=== PATIENT | male | born 1945 | race Two or more races ===

== ENCOUNTER 2018-07-28 18:50 | Inpatient (IN) | payer MEDICARE ==
[2018-07-28 20:03] LABS: EOSINOPHILE ABSOLUTE 0.4 Th/cmm (0.1-0.4); HEMATOCRIT 31.3 % (41.0-60); HEMOGLOBIN 10.3 gm/dL (12-16); LYMPHOCYTE ABSOLUTE 2.2 Th/cmm (1.5-3.0); MEAN CELL VOLUME 84.6 fl (80-99); MEAN CORPUSCULAR HEMOGLOBIN 27.9 pg (27.0-31.0); MEAN PLATELET VOLUME 6.1 fl; MONOCYTE ABSOLUTE 1.3 Th/cmm (0.3-1.0); NEUTROPHILE ABSOLUTE 4.6 Th/cmm (1.8-8.0); PLATELET COUNT 278 Th/cmm (150-400); WHITE BLOOD COUNT 8.5 Th/cmm (4.8-10.8)
[2018-07-28 20:16] LABS: ALBUMIN 1.7 gm/dL (4.2-5.5); ANION GAP 7.9 (7.0-16.0); BUN - UREA NITROGEN 28 mg/dL (7-25); CALCIUM SERUM 7.7 mg/dL (8.6-10.3); CARBON DIOXIDE 23.4 mEq/L (21.0-31.0); CHLORIDE 111 mEq/L (98-107); CREATININE - SERUM 1.1 mg/dL (0.7-1.3); GLUCOSE 78 mg/dL (70-105); POTASSIUM SERUM 4.3 mEq/L (3.5-5.1); SODIUM SERUM 138 mEq/L (136-145)
[2018-07-28 20:45] LABS: % BASOPHILS 0.4 % (0.0-2.0); % EOSINOPHILS 5.1 % (0.0-5.0); % LYMPHOCYTES 25.9 % (20.0-50.0); % MONOCYTES 14.6 % (2.0-10.0)
--- NOTE | 2018-07-28 21:47 | ED Physician Chart ---
ED Chief Complaint/HPI - Patient Information Date Seen:: 07/28/18 Time Seen:: 19:10 Chief Complaint:: sent for swelling History of Present Illness:: sent today on going problem generalized Allergies:: Allergies Allergy/AdvReac Type Severity Reaction Status Date / Time No Known Allergies Allergy Verified 07/28/18 19:42 Vitals:: Vital Signs - 8 hr 07/28/18 07/28/18 19:06 20:27 Temp 97.4 F 97.9 F HR 64 67 RR 18 18 BP 150/80 155/75 O2 Sat % 97 97 Review:: Nurse's Note Reviewed, EMS run form Reviewed ED Review of Systems - Review of Systems General/Constitutional: No fever Skin: Skin lesions Eyes: No loss of vision ENT: No nasal drainage Neck: No neck pain Cardio Vascular: No chest pain Pulmonary: No SOB, Cough GI: No nausea, No vomiting G/U: No dysuria Musculoskeletal: No bone or joint pain Endocrine: No polyuria Psychiatric: Prior psych history Hematopoietic: No bruising Allergic/Immuno: No urticaria Neurological: No syncope ED Past Medical History - Past Medical History Past Medical History: CHF Social History: No Drug Use Psychiatricy History: Other Medication: Reviewed Family Medical History - Family Member Mother History Unknown: Yes ED Physical Exam - Physical Examination General/Constitutional: Alert, No distress, Non-toxic appearing (coughing slight wheeze) Head: Atraumatic Eyes: Lids, conjuctiva normal Skin: Well hydrated ENMT: External ears, nose nl Neck: Nontender Respiratory: Nl effort/Exclusion (mucoid sounds no acute significant dyspnea), Clear to Auscultation, No Wheeze/Rhonchi/Rales Cardio Vascular: RRR GI: No tenderness/rebounding/guarding : No CVA tenderness Extremities: Full ROM (marked anasarca) Neuro/Psych: Alert/oriented Misc: Normal back ED Labs/Radiology/EKG Results - Lab Results Results: Laboratory Tests 07/28/18 07/28/18 07/28/18 19:50 19:50 19:50 WBC 8.5 RBC 3.70 L Hgb 10.3 L Hct 31.3 L MCV 84.6 MCH 27.9 MCHC Differential 33.0 RDW 15.0 Plt Count 278 MPV 6.1 Add Manual Diff YES Neutrophils % 54.0 Lymphocytes % 25.9 Monocytes % 14.6 H Eosinophils % 5.1 H Basophils % 0.4 Sodium 138 Potassium 4.3 Chloride 111 H Carbon Dioxide 23.4 Anion Gap 7.9 BUN 28 H Creatinine 1.1 Est GFR ( Amer) TNP Est GFR (Non-Af Amer) TNP BUN/Creatinine Ratio 25.5 Glucose 78 Calcium 7.7 L B-Natriuretic Peptide 134.0 H Albumin 1.7 L ED Assessment - Assessment General Assessment: hypoalbunemia severe equivocal chf vs pna ED Septic Shock - <6hrs of presentation: Vital Signs: Vital Signs - 8 hr 07/28/18 07/28/18 19:06 20:27 Temp 97.4 F 97.9 F HR 64 67 RR 18 18 BP 150/80 155/75 O2 Sat % 97 97
[2018-07-28 21:50] LABS: BAND NEUTROPHILE 1 % (0-10); LYMPHOCYTE 24 % (20-50); MONOCYTE 8 % (2-10); NEUTROPHILS 63 % (40-80)
[2018-07-28 21:51] LABS: EOSINOPHIL 4 % (0-5)
[2018-07-29 00:56] VITALS: BP 147/83
[2018-07-29 05:14] LABS: % BASOPHILS 0.3 % (0.0-2.0); % EOSINOPHILS 4.1 % (0.0-5.0); % LYMPHOCYTES 20.2 % (20.0-50.0); % MONOCYTES 12.8 % (2.0-10.0); % NEUTROPHILS 62.6 % (40.0-80.0); EOSINOPHILE ABSOLUTE 0.4 Th/cmm (0.1-0.4); HEMATOCRIT 33.2 % (41.0-60); HEMOGLOBIN 11.3 gm/dL (12-16); LYMPHOCYTE ABSOLUTE 1.9 Th/cmm (1.5-3.0); MEAN CELL VOLUME 84.1 fl (80-99); MEAN CORPUSCULAR HEMOGLOBIN 28.6 pg (27.0-31.0); MEAN PLATELET VOLUME 6.5 fl; MONOCYTE ABSOLUTE 1.2 Th/cmm (0.3-1.0); NEUTROPHILE ABSOLUTE 5.9 Th/cmm (1.8-8.0); PLATELET COUNT 297 Th/cmm (150-400); RED BLOOD COUNT 3.95 Mil/cmm (3.80-5.80); RED CELL DISTRIBUTION WIDTH 14.7 % (11.5-20.0); WHITE BLOOD COUNT 9.4 Th/cmm (4.8-10.8)
[2018-07-29 05:24] LABS: ANION GAP 6.7 (7.0-16.0); BUN - UREA NITROGEN 24 mg/dL (7-25); CALCIUM SERUM 7.9 mg/dL (8.6-10.3); CARBON DIOXIDE 23.7 mEq/L (21.0-31.0); CHLORIDE 113 mEq/L (98-107); CREATININE KINASE 246 U/L (30-223); GLUCOSE 97 mg/dL (70-105); POTASSIUM SERUM 4.4 mEq/L (3.5-5.1); SODIUM SERUM 139 mEq/L (136-145)
[2018-07-29] MEDS: Ferrous Sulfate 325 MG TAB PO SCH (08:22)
[2018-07-29] MEDS: Vitamin B Complex w/Vitamin C Tab PO SCH (08:23)
[2018-07-29] MEDS: Levothyroxine 0.05 Mg Tab PO SCH (08:24)
[2018-07-29] MEDS: Guaifenesin DM 10 ML UDC PO PRN ×2 (08:24→16:50)
--- NOTE | 2018-07-29 09:04 | Diagnostic Imaging Report ---
Portable chest x-ray HISTORY: Shortness of breath The heart size appears somewhat generous. There are bilateral lower lobe interstitial lung changes. Findings may be chronic. Pneumonia cannot be definitely excluded. Clinical correlation is needed. IMPRESSION: 1. Generalized accentuation of the lower interstitial lung markings. The findings may be chronic. Pneumonia is difficult to exclude. Clinical correlation needed. 2. Generous heart size
[2018-07-29] MEDS: Albuterol Nebulizer 2.5mg/3mL HHN PRN ×2 (11:13→20:37)
--- NOTE | 2018-07-29 13:30 | Consultation ---
DATE OF CONSULTATION: 07/29/[address] Orona. HISTORY OF PRESENT ILLNESS: This is a 72-year-old male patient with schizophrenia, has generalized edema with anasarca and hence, Cardiology consult is requested. PAST MEDICAL HISTORY: Congestive heart failure, severe protein-calorie malnutrition, albumin level 1.7, hypertension, schizophrenia, peripheral vascular disease, alcohol dependence, dermatitis. FAMILY HISTORY: Unremarkable. SOCIAL HISTORY: No history of smoking or alcohol abuse. ALLERGIES: No known allergies. PHYSICAL EXAMINATION: VITAL SIGNS: Blood pressure 150/90, pulse 70, respirations 20, temperature 98. HEAD: Normocephalic. No lumps or bumps. EYES: Pupils equal, reactive to light. Fundi show AV nicking, sclerae white, conjunctivae pink. NECK: Carotid 2+. Normal upstroke. JVD 10 cm above sternal angle. Thyroid not palpable. Lymph nodes not palpable. CHEST: Shows increased AP diameter. No kyphosis, scoliosis. LUNGS: Bilateral bronchovesicular breath sounds. HEART: PMI fifth intercostal space with lateral to midclavicular line. S1, S2, S3. Soft S4. ABDOMEN: Soft. EXTREMITIES: No pedal edema. CLINICAL IMPRESSION: 1. Mild congestive heart failure. 2. Diastolic dysfunction, acute. 3. Severe protein-calorie malnutrition. 4. Hypertension. 5. Schizophrenia. 6. Peripheral vascular disease. 7. Alcohol dependence. 8. Dermatitis. PLAN: The patient has low albumin. We will give the patient Lasix, get echocardiogram and monitor the patient. The patient's BNP level is 174. JOB# [id number]
--- NOTE | 2018-07-29 17:54 | History & Physical ---
ADMIT DATE: 07/29/2018 CHIEF COMPLAINT: Generalized anasarca. HISTORY OF PRESENT ILLNESS: This is a 72-year-old male who is a [facility] resident, admitted to the telemetry unit due to 1-day history of generalized anasarca. Upon examination, the patient is in bed. The patient's bilateral lower extremity is noted with redness, tenderness, and warm to touch. The patient complains of pain when bilateral lower calves are touched. No reports of any fevers at the [facility]. PAST MEDICAL HISTORY: CHF, hypertension, dementia, anemia. PAST SURGICAL HISTORY: Unknown. ALLERGIES: No drug allergies. HOME MEDICATIONS: Please see medication list. REVIEW OF SYSTEMS: GENERAL: Denies any fevers and chills. CARDIOVASCULAR: Denies any chest pain. RESPIRATORY: Complains of cough. GASTROINTESTINAL: Denies nausea, vomiting, or abdominal pain. GENITOURINARY: Denies increased frequency or dysuria. NEUROLOGIC: No headaches, seizures or syncope. All systems are reviewed and negative. PHYSICAL EXAMINATION: GENERAL: The patient is well developed, well nourished, no apparent distress. VITAL SIGNS: Temperature 97.1, heart rate 81, blood pressure 136/81, respirations 19, O2 99%. HEENT: Head normocephalic, atraumatic. NECK: Supple. No mass. LUNGS: Clear bilaterally. HEART: Regular rhythm. ABDOMEN: Soft, nontender. EXTREMITIES: Bilateral lower extremity noted with nonpitting edema, warmness and tenderness to touch, associated with pain. LABORATORY DATA: WBC 9.4, H and H 11.3 and 33.2, platelet of 297. Sodium 139, potassium 4.4, chloride 113, BUN 24, creatinine 1.0. BNP of 174. Albumin of 1.7. DIAGNOSTICS: The patient had a chest x-ray done, impression is generalized accentuation of the lower interstitial lung markings. Findings may be chronic, pneumonia is difficult to exclude. Generous heart size. ASSESSMENT: Possible congestive heart failure exacerbation, bilateral lower extremity edema, generalized anasarca, dementia, hypertension, severe protein-calorie malnutrition, anemia, hypocalcemia. PLAN: The patient will be admitted to the telemetry unit. A bilateral lower extremity venous Doppler will be ordered to rule out DVT. DVT prophylaxis as well GI prophylaxis. We will get historic sites supervisor on the case. We will start the patient on IV Zosyn and vancomycin for cellulitis of bilateral lower extremities. Continue with Lasix 40 mg IV push daily. Follow up labs for tomorrow morning. Daily weights. IV Solu-Medrol to be ordered as well as DuoNeb 3 mL q.6h. Supplemental oxygen as needed to keep O2 sat above 90%. We will monitor intake and output and monitor daily Is and Os. We will continue to monitor this patient. JOB# [id number]
[2018-07-29] MEDS: methylPREDNISolone SS 40 mg Vial IVP SCH (18:21)
[2018-07-29] MEDS: Enoxaparin 40 mg/0.4 mL 0.4mL Syr SUBQ SCH (21:27)
[2018-07-29] MEDS: Haloperidol Lactate Oral sol. 2 mg/mL Udc PO SCH (21:33)
[2018-07-30] MEDS: methylPREDNISolone SS 40 mg Vial IVP SCH ×3 (02:12→16:54)
[2018-07-30 05:29] LABS: HEMATOCRIT 33.5 % (41.0-60); HEMOGLOBIN 11.5 gm/dL (12-16); LYMPHOCYTE ABSOLUTE 1.1 Th/cmm (1.5-3.0); MEAN CELL VOLUME 83.8 fl (80-99); MEAN CORPUSCULAR HEMOGLOBIN 28.8 pg (27.0-31.0); MEAN CORPUSCULAR HGB CONC 34.3 pg (28.0-36.0); MEAN PLATELET VOLUME 6.7 fl; MONOCYTE ABSOLUTE 0.1 Th/cmm (0.3-1.0); NEUTROPHILE ABSOLUTE 13.7 Th/cmm (1.8-8.0); PLATELET COUNT 299 Th/cmm (150-400); RED CELL DISTRIBUTION WIDTH 14.7 % (11.5-20.0); WHITE BLOOD COUNT 14.9 Th/cmm (4.8-10.8)
[2018-07-30 05:40] LABS: ANION GAP 11.8 (7.0-16.0); BUN - UREA NITROGEN 25 mg/dL (7-25); CALCIUM SERUM 7.9 mg/dL (8.6-10.3); CARBON DIOXIDE 21.7 mEq/L (21.0-31.0); CHLORIDE 110 mEq/L (98-107); CREATININE - SERUM 1.1 mg/dL (0.7-1.3); GLUCOSE 137 mg/dL (70-105); POTASSIUM SERUM 4.5 mEq/L (3.5-5.1); SODIUM SERUM 139 mEq/L (136-145)
[2018-07-30 06:46] LABS: BAND NEUTROPHILE 1 % (0-10); BASOPHIL 0 % (0-3); EOSINOPHIL 0 % (0-5); LYMPHOCYTE 6 % (20-50); MONOCYTE 1 % (2-10); NEUTROPHILS 92 % (40-80)
[2018-07-30] MEDS: Enoxaparin 40 mg/0.4 mL 0.4mL Syr SUBQ SCH ×2 (09:30→20:23)
[2018-07-30] MEDS: Levothyroxine 0.05 Mg Tab PO SCH (09:30)
[2018-07-30] MEDS: Vitamin B Complex w/Vitamin C Tab PO SCH (09:30)
[2018-07-30] MEDS: Ferrous Sulfate 325 MG TAB PO SCH (09:30)
--- NOTE | 2018-07-30 09:42 | Diagnostic Imaging Report ---
Left lower extremity Doppler venous ultrasound exam HISTORY: Pain/swelling Sonographic sector images were obtained through the deep venous systems of the left leg. Associated Doppler data was obtained. The exam demonstrates patency of the common femoral, superficial femoral, popliteal, and posterior tibial veins. Specifically, no thrombus is seen. There are normal compressibility and augmentation responses. IMPRESSION: Negative exam for deep vein thrombophlebitis.
[2018-07-30] MEDS: Haloperidol Lactate Oral sol. 2 mg/mL Udc PO SCH ×3 (10:59→20:21)
--- NOTE | 2018-07-30 14:26 | General Progress Note ---
Subjective - Review of Systems Service Date: 07/30/18 Subjective: Patient still complained of swelling in the legs or shortness of breath Objective - Results Result Diagrams: 07/30/18 04:20 07/30/18 04:20 Recent Labs: Laboratory Last Values WBC 14.9 Th/cmm (4.8-10.8) H 07/30/18 04:20 RBC 4.00 Mil/cmm (3.80-5.80) 07/30/18 04:20 Hgb 11.5 gm/dL (12-16) L 07/30/18 04:20 Hct 33.5 % (41.0-60) L 07/30/18 04:20 MCV 83.8 fl (80-99) 07/30/18 04:20 MCH 28.8 pg (27.0-31.0) 07/30/18 04:20 MCHC Differential 34.3 pg (28.0-36.0) 07/30/18 04:20 RDW 14.7 % (11.5-20.0) 07/30/18 04:20 Plt Count 299 Th/cmm (150-400) 07/30/18 04:20 MPV 6.7 fl 07/30/18 04:20 Add Manual Diff YES 07/30/18 04:20 Neutrophils % 62.6 % (40.0-80.0) 07/29/18 04:15 Band Neutrophils % 1 % (0-10) 07/30/18 04:20 Lymphocytes % 20.2 % (20.0-50.0) 07/29/18 04:15 Monocytes % 12.8 % (2.0-10.0) H 07/29/18 04:15 Eosinophils % 4.1 % (0.0-5.0) 07/29/18 04:15 Basophils % 0.3 % (0.0-2.0) 07/29/18 04:15 Neutrophils (Manual) 92 % (40-80) H 07/30/18 04:20 Lymphocytes 6 % (20-50) L 07/30/18 04:20 Monocytes 1 % (2-10) L 07/30/18 04:20 Eosinophils 0 % (0-5) 07/30/18 04:20 Basophils 0 % (0-3) 07/30/18 04:20 Sodium 139 mEq/L (136-145) 07/30/18 04:20 Potassium 4.5 mEq/L (3.5-5.1) 07/30/18 04:20 Chloride 110 mEq/L (98-107) H 07/30/18 04:20 Carbon Dioxide 21.7 mEq/L (21.0-31.0) 07/30/18 04:20 Anion Gap 11.8 (7.0-16.0) 07/30/18 04:20 BUN 25 mg/dL (7-25) 07/30/18 04:20 Creatinine 1.1 mg/dL (0.7-1.3) 07/30/18 04:20 Est GFR ( Amer) TNP 07/30/18 04:20 Est GFR (Non-Af Amer) TNP 07/30/18 04:20 BUN/Creatinine Ratio 22.7 07/30/18 04:20 Glucose 137 mg/dL (70-105) H 07/30/18 04:20 Calcium 7.9 mg/dL (8.6-10.3) L 07/30/18 04:20 Creatine Kinase 246 U/L (30-223) H 07/29/18 04:15 CK-MB (CK-2) 11.1 ng/mL (0.6-6.3) H 07/29/18 04:15 Troponin I 0.02 ng/mL (0.01-0.05) 07/29/18 04:15 B-Natriuretic Peptide 331.0 pg/mL (5.0-100.0) H 07/30/18 04:20 Albumin 1.7 gm/dL (4.2-5.5) L 07/28/18 19:50 - Physical Exam Vitals and I&O: Vital Signs Temp 97.7 F 07/30/18 11:48 Pulse 68 07/30/18 11:48 Resp 18 07/30/18 11:48 BP 141/68 07/30/18 11:48 Pulse Ox 92 07/30/18 11:48 Intake & Output 07/29/18 07/30/18 07/30/18 18:59 06:59 18:59 Intake Total 1120 600 Output Total 1950 680 Balance -830 -80 Weight (lbs) 98.43 kg 98.43 kg Intake: Oral 1120 600 Output: Urine 1950 680 Other: # Voids 1 3 # Bowel Movements 0 0 Stool Characteristics Soft Weight Source Bedscale Bedscale Active Medications: Current Medications Acetaminophen (Tylenol) 325 mg PO Q4HR PRN PRN Reason: Pain or Fever >101 Stop: 09/27/18 07:42 Albuterol Sulfate (Albuterol 2.5mg/3ml Neb Ud) 2.5 mg HHN Q4H PRN PRN Reason: Congestion Stop: 09/27/18 07:59 Last Admin: 07/29/18 20:37 Dose: 2.5 mg Amlodipine Besylate (Norvasc) 2.5 mg PO DAILY [facility] Stop: 09/27/18 08:59 Last Admin: 07/30/18 09:30 Dose: 2.5 mg Ascorbic Acid (Vitamin C) 250 mg PO QPM [facility] Stop: 09/27/18 16:59 Last Admin: 07/29/18 16:45 Dose: 250 mg Aspirin (Ecotrin) 81 mg PO QPM [facility] Stop: 09/27/18 16:59 Last Admin: 07/29/18 16:45 Dose: 81 mg Bisacodyl (Dulcolax 10 Mg Supp) 10 mg RC DAILY PRN PRN Reason: Constipation Stop: 09/27/18 07:42 Calcium Carbonate (Tums) 500 mg PO Q4HR PRN PRN Reason: Indigestion Stop: 09/27/18 07:42 Diphenhydramine HCl (Benadryl) 50 mg PO HS PRN PRN Reason: Insomnia Stop: 09/27/18 07:42 Donepezil HCl (Aricept) 5 mg PO QPM [facility] Stop: 09/27/18 16:59 Last Admin: 07/29/18 16:45 Dose: 5 mg Enoxaparin Sodium (Lovenox) 40 mg SUBQ Q12HR [facility] Stop: 09/27/18 20:59 Last Admin: 07/30/18 09:30 Dose: 40 mg Ferrous Sulfate (Iron) 325 mg PO DAILY [facility] Stop: 09/27/18 08:59 Last Admin: 07/30/18 09:30 Dose: 325 mg Folic Acid (Folate) 2 mg PO DAILY [facility] Stop: 09/27/18 08:59 Last Admin: 07/30/18 09:30 Dose: 2 mg Furosemide (Lasix) 40 mg IVP DAILY [facility] Stop: 09/27/18 08:59 Last Admin: 07/30/18 09:30 Dose: 40 mg Guaifenesin/Dextromethorphan (Robitussin Dm) 10 ml PO Q4H PRN PRN Reason: Cough Stop: 09/27/18 07:44 Last Admin: 07/29/18 16:50 Dose: 10 ml Haloperidol Lactate (Haldol) 0.5 mg PO TID [facility] Stop: 09/27/18 08:59 Last Admin: 07/30/18 14:07 Dose: Not Given Levothyroxine Sodium (Synthroid) 0.05 mg PO DAILY [facility] Stop: 09/27/18 08:59 Last Admin: 07/30/18 09:30 Dose: 0.05 mg Lisinopril (Zestril) 20 mg PO DAILY [facility] Stop: 09/27/18 08:59 Last Admin: 07/30/18 09:30 Dose: 20 mg Methylprednisolone Sodium Succinate (Solu-Medrol) 40 mg IVP Q8H [facility] Stop: 09/27/18 17:14 Last Admin: 07/30/18 09:38 Dose: 40 mg Vitamin B Complex/Vit C/Folic Acid (Vitamin B Complex W/Vitamin C) 1 tab PO DAILY [facility] Stop: 09/27/18 08:59 Last Admin: 07/30/18 09:30 Dose: 1 tab General: No acute distress HEENT: Other (normal) Neck: Supple, JVD, +2 carotid pulse wo bruit Cardiovascular: Regular rate, Normal S1, Normal S2, Systolic murmurs Lungs: Clear to auscultation, Normal air movement Abdomen: Bowel sounds, Soft Extremities: Pulses (normal) Neurological: Strength at 5/5 X4 ext, Cranial nerves 3-12 NL, Reflexes 2+ Assessment/Plan - Assessment Assessment: Congestive heart failure diastolic dysfunction and acute Hypertension Schizophrenia Therefore vascular disease Alcohol dependence Dermatitis - Plan Plan: Continue present management repeat BNP level
--- NOTE | 2018-07-30 14:43 | Cardiology ---
07/29/2018 PATIENT OF: Dr. Orona. M-MODE ECHOCARDIOGRAM: Mitral valve, anterior leaflet of mitral valve shows normal excursion, EF velocity. Posterior leaflet of the mitral valve shows normal excursion. Left ventricle posterior wall shows increased thickness, normal excursion. Interventricular septum shows increased thickness, normal excursion, hypertrophy of the left ventricle, ejection fraction 69%. Left atrium normal. Aortic root shows normal dimension, normal excursion of aortic leaflets. CONCLUSION: Hypertrophy of the left ventricle, ejection fraction 69%. 2D ECHO: Long axis view showed normal sized left ventricle with hypertrophy of the left ventricle. Left atrium normal. Aortic root shows normal dimension, normal excursion of aortic leaflets. Short axis view of mitral valve normal. Short axis view of aortic valve normal. Apical four chamber view showed normal sized left ventricle with hypertrophy of the left ventricle. Left atrium normal. Right ventricular cavity, right atrium normal, no pericardial effusion. CONCLUSION: Hypertrophy of the left ventricle, ejection fraction 69%. Doppler study shows mild mitral regurgitation, moderate tricuspid regurgitation, right ventricular systolic pressure 46 mmHg with mild pulmonary hypertension. CONCLUSION: Hypertrophy of the left ventricle, mild mitral regurgitation, moderate tricuspid regurgitation and mild pulmonary hypertension. JOB# [id number]
--- NOTE | 2018-07-30 14:57 | Internal Medicine Prog Note ---
Internal Medicine Subjective - Subjective Service Date: 07/30/18 Patient seen and examined:: with staff, chart reviewed Patient is:: awake, verbal, confused Patient Complaints of:: other (General weakness) Per staff patient has:: no adverse event, no episodes of fall, confused Internal Medicine Objective - Results Result Diagrams: 07/30/18 04:20 07/30/18 04:20 Recent Labs: Laboratory Last Values WBC 14.9 Th/cmm (4.8-10.8) H 07/30/18 04:20 RBC 4.00 Mil/cmm (3.80-5.80) 07/30/18 04:20 Hgb 11.5 gm/dL (12-16) L 07/30/18 04:20 Hct 33.5 % (41.0-60) L 07/30/18 04:20 MCV 83.8 fl (80-99) 07/30/18 04:20 MCH 28.8 pg (27.0-31.0) 07/30/18 04:20 MCHC Differential 34.3 pg (28.0-36.0) 07/30/18 04:20 RDW 14.7 % (11.5-20.0) 07/30/18 04:20 Plt Count 299 Th/cmm (150-400) 07/30/18 04:20 MPV 6.7 fl 07/30/18 04:20 Add Manual Diff YES 07/30/18 04:20 Neutrophils % 62.6 % (40.0-80.0) 07/29/18 04:15 Band Neutrophils % 1 % (0-10) 07/30/18 04:20 Lymphocytes % 20.2 % (20.0-50.0) 07/29/18 04:15 Monocytes % 12.8 % (2.0-10.0) H 07/29/18 04:15 Eosinophils % 4.1 % (0.0-5.0) 07/29/18 04:15 Basophils % 0.3 % (0.0-2.0) 07/29/18 04:15 Neutrophils (Manual) 92 % (40-80) H 07/30/18 04:20 Lymphocytes 6 % (20-50) L 07/30/18 04:20 Monocytes 1 % (2-10) L 07/30/18 04:20 Eosinophils 0 % (0-5) 07/30/18 04:20 Basophils 0 % (0-3) 07/30/18 04:20 Sodium 139 mEq/L (136-145) 07/30/18 04:20 Potassium 4.5 mEq/L (3.5-5.1) 07/30/18 04:20 Chloride 110 mEq/L (98-107) H 07/30/18 04:20 Carbon Dioxide 21.7 mEq/L (21.0-31.0) 07/30/18 04:20 Anion Gap 11.8 (7.0-16.0) 07/30/18 04:20 BUN 25 mg/dL (7-25) 07/30/18 04:20 Creatinine 1.1 mg/dL (0.7-1.3) 07/30/18 04:20 Est GFR ( Amer) TNP 07/30/18 04:20 Est GFR (Non-Af Amer) TNP 07/30/18 04:20 BUN/Creatinine Ratio 22.7 07/30/18 04:20 Glucose 137 mg/dL (70-105) H 07/30/18 04:20 Calcium 7.9 mg/dL (8.6-10.3) L 07/30/18 04:20 Creatine Kinase 246 U/L (30-223) H 07/29/18 04:15 CK-MB (CK-2) 11.1 ng/mL (0.6-6.3) H 07/29/18 04:15 Troponin I 0.02 ng/mL (0.01-0.05) 07/29/18 04:15 B-Natriuretic Peptide 331.0 pg/mL (5.0-100.0) H 07/30/18 04:20 Albumin 1.7 gm/dL (4.2-5.5) L 07/28/18 19:50 - Physical Exam Vitals and I&O: Vital Signs Temp 97.7 F 07/30/18 11:48 Pulse 68 07/30/18 11:48 Resp 18 07/30/18 11:48 BP 141/68 07/30/18 11:48 Pulse Ox 92 07/30/18 11:48 Intake & Output 07/29/18 07/30/18 07/30/18 18:59 06:59 18:59 Intake Total 1120 600 Output Total 1950 680 Balance -830 -80 Weight (lbs) 98.43 kg 98.43 kg Intake: Oral 1120 600 Output: Urine 1950 680 Other: # Voids 1 3 # Bowel Movements 0 0 Stool Characteristics Soft Weight Source Bedscale Bedscale Active Medications: Current Medications Acetaminophen (Tylenol) 325 mg PO Q4HR PRN PRN Reason: Pain or Fever >101 Stop: 09/27/18 07:42 Albuterol Sulfate (Albuterol 2.5mg/3ml Neb Ud) 2.5 mg HHN Q4H PRN PRN Reason: Congestion Stop: 09/27/18 07:59 Last Admin: 07/29/18 20:37 Dose: 2.5 mg Amlodipine Besylate (Norvasc) 2.5 mg PO DAILY [facility] Stop: 09/27/18 08:59 Last Admin: 07/30/18 09:30 Dose: 2.5 mg Ascorbic Acid (Vitamin C) 250 mg PO QPM [facility] Stop: 09/27/18 16:59 Last Admin: 07/29/18 16:45 Dose: 250 mg Aspirin (Ecotrin) 81 mg PO QPM [facility] Stop: 09/27/18 16:59 Last Admin: 07/29/18 16:45 Dose: 81 mg Bisacodyl (Dulcolax 10 Mg Supp) 10 mg RC DAILY PRN PRN Reason: Constipation Stop: 09/27/18 07:42 Calcium Carbonate (Tums) 500 mg PO Q4HR PRN PRN Reason: Indigestion Stop: 09/27/18 07:42 Diphenhydramine HCl (Benadryl) 50 mg PO HS PRN PRN Reason: Insomnia Stop: 09/27/18 07:42 Donepezil HCl (Aricept) 5 mg PO QPM [facility] Stop: 09/27/18 16:59 Last Admin: 07/29/18 16:45 Dose: 5 mg Enoxaparin Sodium (Lovenox) 40 mg SUBQ Q12HR [facility] Stop: 09/27/18 20:59 Last Admin: 07/30/18 09:30 Dose: 40 mg Ferrous Sulfate (Iron) 325 mg PO DAILY [facility] Stop: 09/27/18 08:59 Last Admin: 07/30/18 09:30 Dose: 325 mg Folic Acid (Folate) 2 mg PO DAILY [facility] Stop: 09/27/18 08:59 Last Admin: 07/30/18 09:30 Dose: 2 mg Furosemide (Lasix) 40 mg IVP DAILY [facility] Stop: 09/27/18 08:59 Last Admin: 07/30/18 09:30 Dose: 40 mg Guaifenesin/Dextromethorphan (Robitussin Dm) 10 ml PO Q4H PRN PRN Reason: Cough Stop: 09/27/18 07:44 Last Admin: 07/29/18 16:50 Dose: 10 ml Haloperidol Lactate (Haldol) 0.5 mg PO TID [facility] Stop: 09/27/18 08:59 Last Admin: 07/30/18 14:07 Dose: Not Given Levothyroxine Sodium (Synthroid) 0.05 mg PO DAILY [facility] Stop: 09/27/18 08:59 Last Admin: 07/30/18 09:30 Dose: 0.05 mg Lisinopril (Zestril) 20 mg PO DAILY [facility] Stop: 09/27/18 08:59 Last Admin: 07/30/18 09:30 Dose: 20 mg Methylprednisolone Sodium Succinate (Solu-Medrol) 40 mg IVP Q8H [facility] Stop: 09/27/18 17:14 Last Admin: 07/30/18 09:38 Dose: 40 mg Vitamin B Complex/Vit C/Folic Acid (Vitamin B Complex W/Vitamin C) 1 tab PO DAILY [facility] Stop: 09/27/18 08:59 Last Admin: 07/30/18 09:30 Dose: 1 tab General: weak, demented, edematous HEENT: NC/AT, PERRLA Neck: Supple, No JVD Lungs: CTAB Cardiovascular: Normal S1 Abdomen: soft Extremities: edema, other (Generalized edema) Internal Medicine Assmt/Plan - Assessment Assessment: Hypertension Mild CHF Dementia Anemia Severe Protein Calorie Malnutrition Schizophrenia PVD Dermatitis Past Alcohol Dependence Acute Diastolic dysfunction - Plan Plan: Continue to monitor closely Continue present meds as directed Monitor Intake/Output daily Monitor Os Supplemental Oxygen Cardio Consult Fall precaution Monitor Mental health status Continue present care management Nutritional Asmnt/Malnutr-PDOC - Dietary Evaluation Malnutrition Findings (Please click <Entered> for more info): see orders
[2018-07-30] MEDS ORDERED: Magnesium Hydroxide (MOM) 30 mL UDC PO PRN (16:41)
[2018-07-30] MEDS: Guaifenesin DM 10 ML UDC PO PRN (18:51)
[2018-07-30] MEDS: Albuterol Nebulizer 2.5mg/3mL HHN PRN (23:29)
[2018-07-31] MEDS: Guaifenesin DM 10 ML UDC PO PRN ×3 (00:11→11:52)
[2018-07-31] MEDS: methylPREDNISolone SS 40 mg Vial IVP SCH ×3 (02:00→21:05)
[2018-07-31 06:47] LABS: HEMOGLOBIN 11.8 gm/dL (12-16); MEAN CELL VOLUME 84.9 fl (80-99); MEAN CORPUSCULAR HEMOGLOBIN 28.6 pg (27.0-31.0); MEAN CORPUSCULAR HGB CONC 33.7 pg (28.0-36.0); PLATELET COUNT 345 Th/cmm (150-400); RED BLOOD COUNT 4.12 Mil/cmm (3.80-5.80)
[2018-07-31 07:49] LABS: WHITE BLOOD COUNT 17.8 Th/cmm (4.8-10.8)
[2018-07-31 08:15] LABS: LYMPHOCYTE 11 % (20-50); MONOCYTE 4 % (2-10); NEUTROPHILS 85 % (40-80); PLATELET ESTIMATE ADEQUATE (NORMAL)
[2018-07-31] MEDS: Levothyroxine 0.05 Mg Tab PO SCH (08:21)
[2018-07-31] MEDS: Ferrous Sulfate 325 MG TAB PO SCH (08:21)
[2018-07-31] MEDS: Multivitamin w/ Minerals Tab PO SCH (08:21)
[2018-07-31] MEDS: Vitamin B Complex w/Vitamin C Tab PO SCH (08:21)
[2018-07-31] MEDS: Enoxaparin 40 mg/0.4 mL 0.4mL Syr SUBQ SCH ×2 (08:23→21:04)
[2018-07-31 08:37] LABS: ANION GAP 11.1 (7.0-16.0); BUN - UREA NITROGEN 31 mg/dL (7-25); CARBON DIOXIDE 21.1 mEq/L (21.0-31.0); CHLORIDE 108 mEq/L (98-107); GLUCOSE 138 mg/dL (70-105); POTASSIUM SERUM 4.2 mEq/L (3.5-5.1); SODIUM SERUM 136 mEq/L (136-145)
[2018-07-31] MEDS: Haloperidol Lactate Oral sol. 2 mg/mL Udc PO SCH ×3 (08:41→21:04)
--- NOTE | 2018-07-31 11:53 | General Progress Note ---
Subjective - Review of Systems Service Date: 07/31/18 Subjective: Patient still complained of swelling in the legs or shortness of breath Objective - Results Result Diagrams: 07/31/18 05:04 07/31/18 05:04 Recent Labs: Laboratory Last Values WBC 17.8 Th/cmm (4.8-10.8) H 07/31/18 05:04 RBC 4.12 Mil/cmm (3.80-5.80) 07/31/18 05:04 Hgb 11.8 gm/dL (12-16) L 07/31/18 05:04 Hct 35.0 % (41.0-60) L 07/31/18 05:04 MCV 84.9 fl (80-99) 07/31/18 05:04 MCH 28.6 pg (27.0-31.0) 07/31/18 05:04 MCHC Differential 33.7 pg (28.0-36.0) 07/31/18 05:04 RDW 15.0 % (11.5-20.0) 07/31/18 05:04 Plt Count 345 Th/cmm (150-400) 07/31/18 05:04 MPV 7.0 fl 07/31/18 05:04 Add Manual Diff YES 07/31/18 05:04 Neutrophils % 62.6 % (40.0-80.0) 07/29/18 04:15 Band Neutrophils % 1 % (0-10) 07/30/18 04:20 Lymphocytes % 20.2 % (20.0-50.0) 07/29/18 04:15 Monocytes % 12.8 % (2.0-10.0) H 07/29/18 04:15 Eosinophils % 4.1 % (0.0-5.0) 07/29/18 04:15 Basophils % 0.3 % (0.0-2.0) 07/29/18 04:15 Neutrophils (Manual) 85 % (40-80) H 07/31/18 05:04 Lymphocytes 11 % (20-50) L 07/31/18 05:04 Monocytes 4 % (2-10) 07/31/18 05:04 Eosinophils 0 % (0-5) 07/30/18 04:20 Basophils 0 % (0-3) 07/30/18 04:20 Platelet Estimate ADEQUATE (NORMAL) 07/31/18 05:04 Sodium 136 mEq/L (136-145) 07/31/18 05:04 Potassium 4.2 mEq/L (3.5-5.1) 07/31/18 05:04 Chloride 108 mEq/L (98-107) H 07/31/18 05:04 Carbon Dioxide 21.1 mEq/L (21.0-31.0) 07/31/18 05:04 Anion Gap 11.1 (7.0-16.0) 07/31/18 05:04 BUN 31 mg/dL (7-25) H 07/31/18 05:04 Creatinine 1.0 mg/dL (0.7-1.3) 07/31/18 05:04 Est GFR ( Amer) TNP 07/31/18 05:04 Est GFR (Non-Af Amer) TNP 07/31/18 05:04 BUN/Creatinine Ratio 31.0 07/31/18 05:04 Glucose 138 mg/dL (70-105) H 07/31/18 05:04 Calcium 8.0 mg/dL (8.6-10.3) L 07/31/18 05:04 Creatine Kinase 246 U/L (30-223) H 07/29/18 04:15 CK-MB (CK-2) 11.1 ng/mL (0.6-6.3) H 07/29/18 04:15 Troponin I 0.02 ng/mL (0.01-0.05) 07/29/18 04:15 B-Natriuretic Peptide 304.0 pg/mL (5.0-100.0) H 07/31/18 05:04 Albumin 1.7 gm/dL (4.2-5.5) L 07/28/18 19:50 - Physical Exam Vitals and I&O: Vital Signs Temp 98.2 F 07/31/18 11:14 Pulse 86 07/31/18 11:14 Resp 18 07/31/18 11:14 BP 150/85 07/31/18 11:14 Pulse Ox 95 07/31/18 11:14 Intake & Output 07/30/18 07/31/18 07/31/18 18:59 06:59 18:59 Intake Total 875 720 Output Total 720 700 Balance 155 20 Weight (lbs) 96.57 kg 97.976 kg Intake: Oral 875 720 Output: Urine 720 700 Other: # Voids 1 1 # Bowel Movements 0 1 Stool Characteristics Soft Weight Source Bedscale Bedscale Active Medications: Current Medications Acetaminophen (Tylenol) 325 mg PO Q4HR PRN PRN Reason: Pain or Fever >101 Stop: 09/27/18 07:42 Albuterol Sulfate (Albuterol 2.5mg/3ml Neb Ud) 2.5 mg HHN Q4H PRN PRN Reason: Congestion Stop: 09/27/18 07:59 Last Admin: 07/30/18 23:29 Dose: 2.5 mg Amlodipine Besylate (Norvasc) 2.5 mg PO DAILY [facility] Stop: 09/27/18 08:59 Last Admin: 07/31/18 08:22 Dose: 2.5 mg Ascorbic Acid (Vitamin C) 250 mg PO QPM [facility] Stop: 09/27/18 16:59 Last Admin: 07/30/18 16:55 Dose: 250 mg Aspirin (Ecotrin) 81 mg PO QPM [facility] Stop: 09/27/18 16:59 Last Admin: 07/30/18 16:54 Dose: 81 mg Bisacodyl (Dulcolax 10 Mg Supp) 10 mg RC DAILY PRN PRN Reason: Constipation Stop: 09/27/18 07:42 Calcium Carbonate (Tums) 500 mg PO Q4HR PRN PRN Reason: Indigestion Stop: 09/27/18 07:42 Diphenhydramine HCl (Benadryl) 50 mg PO HS PRN PRN Reason: Insomnia Stop: 09/27/18 07:42 Last Admin: 07/31/18 00:11 Dose: 50 mg Donepezil HCl (Aricept) 5 mg PO QPM [facility] Stop: 09/27/18 16:59 Last Admin: 07/30/18 16:59 Dose: 5 mg Enoxaparin Sodium (Lovenox) 40 mg SUBQ Q12HR [facility] Stop: 09/27/18 20:59 Last Admin: 07/31/18 08:23 Dose: 40 mg Ferrous Sulfate (Iron) 325 mg PO DAILY [facility] Stop: 09/27/18 08:59 Last Admin: 07/31/18 08:21 Dose: 325 mg Folic Acid (Folate) 2 mg PO DAILY [facility] Stop: 09/27/18 08:59 Last Admin: 07/31/18 08:21 Dose: 2 mg Furosemide (Lasix) 40 mg IVP DAILY [facility] Stop: 09/27/18 08:59 Last Admin: 07/31/18 08:22 Dose: 40 mg Guaifenesin/Dextromethorphan (Robitussin Dm) 10 ml PO Q4H PRN PRN Reason: Cough Stop: 09/27/18 07:44 Last Admin: 07/31/18 05:26 Dose: 10 ml Haloperidol Lactate (Haldol) 0.5 mg PO TID [facility] Stop: 09/27/18 08:59 Last Admin: 07/31/18 08:41 Dose: 0.5 mg Levothyroxine Sodium (Synthroid) 0.05 mg PO DAILY [facility] Stop: 09/27/18 08:59 Last Admin: 07/31/18 08:21 Dose: 0.05 mg Lisinopril (Zestril) 20 mg PO DAILY [facility] Stop: 09/27/18 08:59 Last Admin: 07/31/18 08:21 Dose: 20 mg Lorazepam (Ativan) 0.5 mg PO Q6HR PRN; Protocol PRN Reason: Anxiety Stop: 09/28/18 16:40 Magnesium Hydroxide (Milk Of Magnesia) 30 ml PO DAILY PRN PRN Reason: Constipation Stop: 09/28/18 16:40 Memantine (Namenda) 5 mg PO DAILY [facility] Stop: 09/29/18 08:59 Last Admin: 07/31/18 08:21 Dose: 5 mg Methylprednisolone Sodium Succinate (Solu-Medrol) 40 mg IVP Q8H [facility] Stop: 09/27/18 17:14 Last Admin: 07/31/18 08:21 Dose: 40 mg Thiamine HCl (Vitamin B1) 200 mg PO DAILY [facility] Stop: 09/29/18 08:59 Last Admin: 07/31/18 08:22 Dose: 200 mg Vitamin B Complex/Vit C/Folic Acid (Vitamin B Complex W/Vitamin C) 1 tab PO DAILY [facility] Stop: 09/27/18 08:59 Last Admin: 07/31/18 08:21 Dose: 1 tab General: No acute distress HEENT: Other (normal) Neck: Supple, JVD, +2 carotid pulse wo bruit Cardiovascular: Regular rate, Normal S1, Normal S2, Systolic murmurs Lungs: Clear to auscultation, Normal air movement Abdomen: Bowel sounds, Soft Extremities: Pulses (normal) Neurological: Strength at 5/5 X4 ext, Cranial nerves 3-12 NL, Reflexes 2+ Assessment/Plan - Assessment Assessment: Congestive heart failure diastolic dysfunction and acute Hypertension Schizophrenia Therefore vascular disease Alcohol dependence Dermatitis - Plan Plan: Continue present management repeat BNP level Continue Lasix
[2018-07-31] MEDS ORDERED: Levofloxacin 500mg/100mL 500 MG/100 ML BAG IV SCH (13:45)
--- NOTE | 2018-07-31 16:50 | Consultation ---
DATE OF CONSULTATION: Thank you very much, Dr. Orona, for this consultation. HISTORY OF PRESENT ILLNESS: This is a 72-year-old male with history of chronic obstructive pulmonary disease, presents with some shortness of breath, cough, congestion, admitted for treatment and management. The patient has some cough and congestion, but he feels better, still have some phlegm production. He is a smoker, continues to smoke about 5 cigarettes a day. He is a smoker since early age. PAST MEDICAL HISTORY: Possible congestive heart failure as well. REVIEW OF SYSTEMS: GENERAL: Some weakness and fatigue. CARDIOVASCULAR: No chest pain, no palpitation. RESPIRATORY: Shortness of breath, cough, congestion. GASTROINTESTINAL: No nausea, no vomiting. PHYSICAL EXAMINATION: GENERAL: Awake, alert, not in acute distress. VITAL SIGNS: Temperature 98.2, pulse 86, respirations 18, blood pressure 145/71, saturation 94% on room air. HEENT: Atraumatic, normocephalic. Pupils reactive to light and accommodation. Ears, nose and throat normal. NECK: Supple. CHEST: Few scattered wheezing and rhonchi bilaterally. HEART: Regular rate and rhythm. ABDOMEN: Soft. EXTREMITIES: No edema. LABORATORY AND DIAGNOSTIC DATA: WBC 17.8, hemoglobin 9.8, hematocrit 35.0, and platelets is 345. Sodium 137, potassium 4.2, BUN is 31, creatinine 1.0. BNP is 304. Chest x-ray showed some pulmonary congestion, not to rule out infiltrate and prominent pulmonary arteries. IMPRESSION: 1. This is a 72-year-old male with acute respiratory failure. 2. Chronic obstructive pulmonary disease exacerbation. 3. Underlying congestive heart failure. PLAN: 1. Continue Solu-Medrol, we can decrease the dosage. 2. Diuresis. 3. Cardiac evaluation and supportive care. 4. Follow up chest x-ray. 5. I will follow the patient with you. Thank you very much for this consultation. JOB# [id number]
--- NOTE | 2018-07-31 19:21 | Internal Medicine Prog Note ---
Internal Medicine Subjective - Subjective Service Date: 07/31/18 Patient is:: awake, verbal, confused Patient Complaints of:: other (General weakness) Per staff patient has:: no adverse event, no episodes of fall, confused Internal Medicine Objective - Results Result Diagrams: 07/31/18 05:04 07/31/18 05:04 Recent Labs: Laboratory Last Values WBC 17.8 Th/cmm (4.8-10.8) H 07/31/18 05:04 RBC 4.12 Mil/cmm (3.80-5.80) 07/31/18 05:04 Hgb 11.8 gm/dL (12-16) L 07/31/18 05:04 Hct 35.0 % (41.0-60) L 07/31/18 05:04 MCV 84.9 fl (80-99) 07/31/18 05:04 MCH 28.6 pg (27.0-31.0) 07/31/18 05:04 MCHC Differential 33.7 pg (28.0-36.0) 07/31/18 05:04 RDW 15.0 % (11.5-20.0) 07/31/18 05:04 Plt Count 345 Th/cmm (150-400) 07/31/18 05:04 MPV 7.0 fl 07/31/18 05:04 Add Manual Diff YES 07/31/18 05:04 Neutrophils % 62.6 % (40.0-80.0) 07/29/18 04:15 Band Neutrophils % 1 % (0-10) 07/30/18 04:20 Lymphocytes % 20.2 % (20.0-50.0) 07/29/18 04:15 Monocytes % 12.8 % (2.0-10.0) H 07/29/18 04:15 Eosinophils % 4.1 % (0.0-5.0) 07/29/18 04:15 Basophils % 0.3 % (0.0-2.0) 07/29/18 04:15 Neutrophils (Manual) 85 % (40-80) H 07/31/18 05:04 Lymphocytes 11 % (20-50) L 07/31/18 05:04 Monocytes 4 % (2-10) 07/31/18 05:04 Eosinophils 0 % (0-5) 07/30/18 04:20 Basophils 0 % (0-3) 07/30/18 04:20 Platelet Estimate ADEQUATE (NORMAL) 07/31/18 05:04 Sodium 136 mEq/L (136-145) 07/31/18 05:04 Potassium 4.2 mEq/L (3.5-5.1) 07/31/18 05:04 Chloride 108 mEq/L (98-107) H 07/31/18 05:04 Carbon Dioxide 21.1 mEq/L (21.0-31.0) 07/31/18 05:04 Anion Gap 11.1 (7.0-16.0) 07/31/18 05:04 BUN 31 mg/dL (7-25) H 07/31/18 05:04 Creatinine 1.0 mg/dL (0.7-1.3) 07/31/18 05:04 Est GFR ( Amer) TNP 07/31/18 05:04 Est GFR (Non-Af Amer) TNP 07/31/18 05:04 BUN/Creatinine Ratio 31.0 07/31/18 05:04 Glucose 138 mg/dL (70-105) H 07/31/18 05:04 Calcium 8.0 mg/dL (8.6-10.3) L 07/31/18 05:04 Creatine Kinase 246 U/L (30-223) H 07/29/18 04:15 CK-MB (CK-2) 11.1 ng/mL (0.6-6.3) H 07/29/18 04:15 Troponin I 0.02 ng/mL (0.01-0.05) 07/29/18 04:15 B-Natriuretic Peptide 304.0 pg/mL (5.0-100.0) H 07/31/18 05:04 Albumin 1.7 gm/dL (4.2-5.5) L 07/28/18 19:50 - Physical Exam Vitals and I&O: Vital Signs Temp 97.4 F 07/31/18 15:15 Pulse 62 07/31/18 15:15 Resp 18 07/31/18 16:00 BP 145/71 07/31/18 15:15 Pulse Ox 94 07/31/18 15:15 Intake & Output 02/21/19 02/21/19 02/22/19 06:59 18:59 06:59 Intake Total 720 480 Output Total 700 Balance 20 480 Weight (lbs) 216 lb 219 lb 6.4 oz Intake: Oral 720 480 Output: Urine 700 Other: # Voids 1 1,125 # Bowel Movements 1 1 Weight Source Bedscale Bedscale Active Medications: Current Medications Acetaminophen (Tylenol) 325 mg PO Q4HR PRN PRN Reason: Pain or Fever >101 Stop: 09/27/18 07:42 Albuterol Sulfate (Albuterol 2.5mg/3ml Neb Ud) 2.5 mg HHN Q4H PRN PRN Reason: Congestion Stop: 09/27/18 07:59 Last Admin: 07/30/18 23:29 Dose: 2.5 mg Amlodipine Besylate (Norvasc) 2.5 mg PO DAILY [facility] Stop: 09/27/18 08:59 Last Admin: 07/31/18 08:22 Dose: 2.5 mg Ascorbic Acid (Vitamin C) 250 mg PO QPM [facility] Stop: 09/27/18 16:59 Last Admin: 07/31/18 17:12 Dose: 250 mg Aspirin (Ecotrin) 81 mg PO QPM [facility] Stop: 09/27/18 16:59 Last Admin: 07/31/18 17:12 Dose: 81 mg Bisacodyl (Dulcolax 10 Mg Supp) 10 mg RC DAILY PRN PRN Reason: Constipation Stop: 09/27/18 07:42 Calcium Carbonate (Tums) 500 mg PO Q4HR PRN PRN Reason: Indigestion Stop: 09/27/18 07:42 Diphenhydramine HCl (Benadryl) 50 mg PO HS PRN PRN Reason: Insomnia Stop: 09/27/18 07:42 Last Admin: 07/31/18 00:11 Dose: 50 mg Donepezil HCl (Aricept) 5 mg PO QPM [facility] Stop: 09/27/18 16:59 Last Admin: 07/31/18 17:12 Dose: 5 mg Enoxaparin Sodium (Lovenox) 40 mg SUBQ Q12HR [facility] Stop: 09/27/18 20:59 Last Admin: 07/31/18 08:23 Dose: 40 mg Ferrous Sulfate (Iron) 325 mg PO DAILY [facility] Stop: 09/27/18 08:59 Last Admin: 07/31/18 08:21 Dose: 325 mg Folic Acid (Folate) 2 mg PO DAILY [facility] Stop: 09/27/18 08:59 Last Admin: 07/31/18 08:21 Dose: 2 mg Furosemide (Lasix) 40 mg IVP DAILY [facility] Stop: 09/27/18 08:59 Last Admin: 07/31/18 08:22 Dose: 40 mg Guaifenesin/Dextromethorphan (Robitussin Dm) 10 ml PO Q4H PRN PRN Reason: Cough Stop: 09/27/18 07:44 Last Admin: 07/31/18 11:52 Dose: 10 ml Haloperidol Lactate (Haldol) 0.5 mg PO TID [facility] Stop: 09/27/18 08:59 Last Admin: 07/31/18 14:21 Dose: 0.5 mg Levofloxacin (Levaquin Pb) 500 mg in 100 mls @ 100 mls/hr IV Q24HR [facility] Stop: 09/29/18 13:44 Last Admin: 07/31/18 14:51 Dose: 100 mls/hr Levothyroxine Sodium (Synthroid) 0.05 mg PO DAILY [facility] Stop: 09/27/18 08:59 Last Admin: 07/31/18 08:21 Dose: 0.05 mg Lisinopril (Zestril) 20 mg PO DAILY [facility] Stop: 09/27/18 08:59 Last Admin: 07/31/18 08:21 Dose: 20 mg Lorazepam (Ativan) 0.5 mg PO Q6HR PRN; Protocol PRN Reason: Anxiety Stop: 09/28/18 16:40 Magnesium Hydroxide (Milk Of Magnesia) 30 ml PO DAILY PRN PRN Reason: Constipation Stop: 09/28/18 16:40 Memantine (Namenda) 5 mg PO DAILY [facility] Stop: 09/29/18 08:59 Last Admin: 07/31/18 08:21 Dose: 5 mg Methylprednisolone Sodium Succinate (Solu-Medrol) 20 mg IVP Q12HR [facility] Stop: 09/29/18 20:59 Thiamine HCl (Vitamin B1) 200 mg PO DAILY [facility] Stop: 09/29/18 08:59 Last Admin: 07/31/18 08:22 Dose: 200 mg Vitamin B Complex/Vit C/Folic Acid (Vitamin B Complex W/Vitamin C) 1 tab PO DAILY [facility] Stop: 09/27/18 08:59 Last Admin: 02/21/19 08:21 Dose: 1 tab General: weak, demented, edematous HEENT: NC/AT, PERRLA Neck: Supple, No JVD Lungs: CTAB Cardiovascular: Normal S1 Abdomen: soft Extremities: edema, other (Generalized edema) Internal Medicine Assmt/Plan - Assessment Assessment: Hypertension Mild CHF Dementia Anemia Severe Protein Calorie Malnutrition Schizophrenia PVD Dermatitis Past Alcohol Dependence Acute Diastolic dysfunction - Plan Plan: monitor i+o closely daily weights continue ivabx am labs
--- NOTE | 2018-08-01 00:09 | Consultation ---
DATE OF CONSULTATION: 07/31/2018 INFECTIOUS DISEASE CONSULTATION REFERRING PHYSICIAN: Dr. Orona. REASON FOR CONSULTATION: Leukocytosis. HISTORY OF PRESENT ILLNESS: The patient is a 72-year-old male with a past medical history of CHF, hypertension, dementia, anemia, may have COPD, presented to ER for generalized swelling and anasarca. Both lower extremities were red and tender and warm to touch. The patient denies any fever or chills. On initial evaluation, the patient's temperature was 97.4 degree Fahrenheit and WBC count was 8500. Lasix was started, Solu-Medrol was started. Today, the patient's WBC count went up to 17,800. ID consult was called for the antibiotic management. PAST MEDICAL HISTORY: CHF, hypertension, dementia, anemia. PAST SURGICAL HISTORY: Unknown. ALLERGIES: NKDA. MEDICATIONS: As per medication reconciliation sheet. Antibiotic waite, the patient is started on Levaquin today. REVIEW OF SYSTEMS: GENERAL: The patient denies any fever or chills. HEENT: No diplopia, no photophobia, no sore throat. RESPIRATORY: The patient has no complaints of cough and mild shortness of breath. CARDIOVASCULAR: No chest pain or palpitation. GASTROINTESTINAL: No nausea, no vomiting, no diarrhea, no constipation. GENITOURINARY: No dysuria. NEUROLOGIC: No headache, no dizziness, no focal weakness. PHYSICAL EXAMINATION: CURRENT VITAL SIGNS: Shows temperature is 97.4 degrees Fahrenheit, pulse 62, respiration 18, blood pressure 145/71, oxygen saturation 94%. GENERAL: The patient is comfortable, lying in the bed, not in acute distress. HEENT: Head is normocephalic, atraumatic. Oral cavity moist. Enders tongue. NECK: Supple, no JVD, no carotid bruit. Trachea in midline. CHEST: Bilateral breath sounds. No crackles, mild wheezing present. HEART: S1, S2 within normal limits. Regular rhythm. No murmur, no gallop. ABDOMEN: Soft, nontender, nondistended. Bowel sounds present. EXTREMITIES: No cyanosis. No clubbing. Bilateral pitting edema present. NEUROLOGICAL: Alert, awake, oriented x 3. No focal deficit. LABORATORY DATA: Current lab shows WBC count is 17,800, hemoglobin 11.8, hematocrit 35.0, platelets are 345,000, neutrophil is 85%, lymphocyte 11%. Sodium 136, potassium 4.2, chloride 108, bicarbonate is 21, BUN is 31, creatinine 1, glucose is 138. BNP 304. ____ MRSA screen is negative. Chest x-ray shows generalized accentuation, lower interstitial lung markings, may be chronic, pneumonia difficult to exclude. Doppler ultrasound of the lower extremities is negative. IMPRESSION: 1. Pneumonia. 2. Leukocytosis, most likely due to steroids. 3. Congestive heart failure. 4. Chronic obstructive pulmonary disease exacerbation. 5. Chronic lung disease, may have interstitial lung disease. 6. Hypertension. 7. Dementia. 8. Anemia of chronic disease. RECOMMENDATIONS AND PLAN: We will cut down the steroids to 20 mg IV q. 12 hours. Continue levofloxacin. Check CBC, BMP in the morning. CMP in the morning. Continue Lasix. Thank you, Dr. Orona for involving me in taking care of this patient. [facility]# [id number]
[2018-08-01] MEDS: Guaifenesin DM 10 ML UDC PO PRN ×3 (00:45→09:56)
[2018-08-01 06:43] LABS: HEMATOCRIT 38.2 % (41.0-60); HEMOGLOBIN 12.8 gm/dL (12-16); MEAN CELL VOLUME 84.8 fl (80-99); MEAN CORPUSCULAR HEMOGLOBIN 28.3 pg (27.0-31.0); MEAN CORPUSCULAR HGB CONC 33.3 pg (28.0-36.0); MEAN PLATELET VOLUME 6.5 fl; PLATELET COUNT 390 Th/cmm (150-400); RED BLOOD COUNT 4.51 Mil/cmm (3.80-5.80); RED CELL DISTRIBUTION WIDTH 15.1 % (11.5-20.0)
[2018-08-01 06:47] LABS: ALB/GLOB RATIO 0.7 (1.0-1.8); ALBUMIN 2.1 gm/dL (4.2-5.5); ALKALINE PHOSPHATASE 121 U/L (34-104); ANION GAP 11.5 (7.0-16.0); BILIRUBIN,TOTAL 0.2 mg/dL (0.3-1.0); BUN - UREA NITROGEN 32 mg/dL (7-25); CALCIUM SERUM 8.5 mg/dL (8.6-10.3); CARBON DIOXIDE 20.4 mEq/L (21.0-31.0); CHLORIDE 106 mEq/L (98-107); GLUCOSE 149 mg/dL (70-105); POTASSIUM SERUM 3.9 mEq/L (3.5-5.1); SGOT 22 U/L (13-39); SGPT/ALT 24 U/L (7-52); SODIUM SERUM 134 mEq/L (136-145); TOTAL PROTEIN,SERUM 5.3 gm/dL (6.0-8.3)
[2018-08-01 07:10] LABS: BAND NEUTROPHILE 0 % (0-10); BASOPHIL 0 % (0-3); EOSINOPHIL 0 % (0-5); LYMPHOCYTE 4 % (20-50); MONOCYTE 6 % (2-10); NEUTROPHILS 90 % (40-80)
[2018-08-01] MEDS: Haloperidol Lactate Oral sol. 2 mg/mL Udc PO SCH ×3 (09:22→20:53)
[2018-08-01] MEDS: Enoxaparin 40 mg/0.4 mL 0.4mL Syr SUBQ SCH ×2 (09:22→20:53)
[2018-08-01] MEDS: Multivitamin w/ Minerals Tab PO SCH (09:23)
[2018-08-01] MEDS: Vitamin B Complex w/Vitamin C Tab PO SCH (09:23)
[2018-08-01] MEDS: Levothyroxine 0.05 Mg Tab PO SCH (09:24)
[2018-08-01] MEDS: Ferrous Sulfate 325 MG TAB PO SCH (09:24)
[2018-08-01] MEDS: Albuterol Nebulizer 2.5mg/3mL HHN PRN (09:50)
[2018-08-01] MEDS: methylPREDNISolone SS 40 mg Vial IVP SCH (10:05)
--- NOTE | 2018-08-01 12:36 | Diagnostic Imaging Report ---
Portable chest x-ray HISTORY: Shortness of breath The heart size appears somewhat generous. Atherosclerotic calcination seen in the aorta. There is accentuation of the lower interstitial lung markings. There is question of somewhat more focal density in the medial aspect of the left lower lobe with partial obscuration the left hemidiaphragm. Pneumonia cannot be definitely excluded. Clinical correlation and follow-up recommended. IMPRESSION: 1. Somewhat more focal density in the left lower lobe since the exam of July 28, 2018. Pneumonia cannot be excluded. Clinical correlation and follow-up recommended.
[2018-08-01] MEDS ORDERED: Probiotic Screen MC PRN (14:09)
--- NOTE | 2018-08-01 14:13 | Infectious Disease Prog Note ---
Infectious Disease Subjective - Review of Systems Service Date: 08/01/18 Subjective: Patient has developed fever of 101.5 F, and WBC count went up to 23,000. Infectious Disease Objective - Results Result Diagrams: 08/01/18 05:50 08/01/18 05:50 Recent Labs: Laboratory Last Values WBC 23.0 Th/cmm (4.8-10.8) H* 08/01/18 05:50 RBC 4.51 Mil/cmm (3.80-5.80) 08/01/18 05:50 Hgb 12.8 gm/dL (12-16) 08/01/18 05:50 Hct 38.2 % (41.0-60) L 08/01/18 05:50 MCV 84.8 fl (80-99) 08/01/18 05:50 MCH 28.3 pg (27.0-31.0) 08/01/18 05:50 MCHC Differential 33.3 pg (28.0-36.0) 08/01/18 05:50 RDW 15.1 % (11.5-20.0) 08/01/18 05:50 Plt Count 390 Th/cmm (150-400) 08/01/18 05:50 MPV 6.5 fl 08/01/18 05:50 Add Manual Diff YES 08/01/18 05:50 Neutrophils % 62.6 % (40.0-80.0) 07/29/18 04:15 Band Neutrophils % 0 % (0-10) 08/01/18 05:50 Lymphocytes % 20.2 % (20.0-50.0) 07/29/18 04:15 Monocytes % 12.8 % (2.0-10.0) H 07/29/18 04:15 Eosinophils % 4.1 % (0.0-5.0) 07/29/18 04:15 Basophils % 0.3 % (0.0-2.0) 07/29/18 04:15 Neutrophils (Manual) 90 % (40-80) H 08/01/18 05:50 Lymphocytes 4 % (20-50) L 08/01/18 05:50 Monocytes 6 % (2-10) 08/01/18 05:50 Eosinophils 0 % (0-5) 08/01/18 05:50 Basophils 0 % (0-3) 08/01/18 05:50 Platelet Estimate ADEQUATE (NORMAL) 07/31/18 05:04 Sodium 134 mEq/L (136-145) L 08/01/18 05:50 Potassium 3.9 mEq/L (3.5-5.1) 08/01/18 05:50 Chloride 106 mEq/L (98-107) 08/01/18 05:50 Carbon Dioxide 20.4 mEq/L (21.0-31.0) L 08/01/18 05:50 Anion Gap 11.5 (7.0-16.0) 08/01/18 05:50 BUN 32 mg/dL (7-25) H 08/01/18 05:50 Creatinine 1.0 mg/dL (0.7-1.3) 08/01/18 05:50 Est GFR ( Amer) TNP 08/01/18 05:50 Est GFR (Non-Af Amer) TNP 08/01/18 05:50 BUN/Creatinine Ratio 32.0 08/01/18 05:50 Glucose 149 mg/dL (70-105) H 08/01/18 05:50 Calcium 8.5 mg/dL (8.6-10.3) L 08/01/18 05:50 Total Bilirubin 0.2 mg/dL (0.3-1.0) L 08/01/18 05:50 AST 22 U/L (13-39) 08/01/18 05:50 ALT 24 U/L (7-52) 08/01/18 05:50 Alkaline Phosphatase 121 U/L (34-104) H 08/01/18 05:50 Creatine Kinase 246 U/L (30-223) H 07/29/18 04:15 CK-MB (CK-2) 11.1 ng/mL (0.6-6.3) H 07/29/18 04:15 Troponin I 0.02 ng/mL (0.01-0.05) 07/29/18 04:15 B-Natriuretic Peptide 304.0 pg/mL (5.0-100.0) H 07/31/18 05:04 Total Protein 5.3 gm/dL (6.0-8.3) L 08/01/18 05:50 Albumin 2.1 gm/dL (4.2-5.5) L 08/01/18 05:50 Globulin 3.2 gm/dL 08/01/18 05:50 Albumin/Globulin Ratio 0.7 (1.0-1.8) L 08/01/18 05:50 - Physical Exam Vitals and I&O: Vital Signs Temp 101.5 F 08/01/18 12:43 Pulse 108 08/01/18 12:43 Resp 18 08/01/18 12:43 BP 151/94 08/01/18 12:43 Pulse Ox 98 08/01/18 12:43 Intake & Output 07/31/18 08/01/18 08/01/18 18:59 06:59 18:59 Intake Total 480 Balance 480 Weight (lbs) 99.518 kg 99.337 kg Intake: Oral 480 Other: # Voids 1,125 # Bowel Movements 1 Weight Source Bedscale Bedscale Active Medications: Current Medications Acetaminophen (Tylenol) 325 mg PO Q4HR PRN PRN Reason: Pain or Fever >101 Stop: 09/27/18 07:42 Last Admin: 08/01/18 11:15 Dose: 325 mg Albuterol Sulfate (Albuterol 2.5mg/3ml Neb Ud) 2.5 mg HHN Q4H PRN PRN Reason: Congestion Stop: 09/27/18 07:59 Last Admin: 08/01/18 09:50 Dose: 2.5 mg Amlodipine Besylate (Norvasc) 2.5 mg PO DAILY [facility] Stop: 09/27/18 08:59 Last Admin: 08/01/18 09:23 Dose: 2.5 mg Ascorbic Acid (Vitamin C) 250 mg PO QPM [facility] Stop: 09/27/18 16:59 Last Admin: 07/31/18 17:12 Dose: 250 mg Aspirin (Ecotrin) 81 mg PO QPM [facility] Stop: 09/27/18 16:59 Last Admin: 07/31/18 17:12 Dose: 81 mg Bisacodyl (Dulcolax 10 Mg Supp) 10 mg RC DAILY PRN PRN Reason: Constipation Stop: 09/27/18 07:42 Calcium Carbonate (Tums) 500 mg PO Q4HR PRN PRN Reason: Indigestion Stop: 09/27/18 07:42 Diphenhydramine HCl (Benadryl) 50 mg PO HS PRN PRN Reason: Insomnia Stop: 09/27/18 07:42 Last Admin: 08/01/18 02:23 Dose: 50 mg Donepezil HCl (Aricept) 5 mg PO QPM [facility] Stop: 09/27/18 16:59 Last Admin: 07/31/18 17:12 Dose: 5 mg Enoxaparin Sodium (Lovenox) 40 mg SUBQ Q12HR [facility] Stop: 09/27/18 20:59 Last Admin: 08/01/18 09:22 Dose: 40 mg Ferrous Sulfate (Iron) 325 mg PO DAILY [facility] Stop: 09/27/18 08:59 Last Admin: 08/01/18 09:24 Dose: 325 mg Folic Acid (Folate) 2 mg PO DAILY [facility] Stop: 09/27/18 08:59 Last Admin: 08/01/18 09:24 Dose: 2 mg Furosemide (Lasix) 40 mg IVP DAILY [facility] Stop: 09/27/18 08:59 Last Admin: 08/01/18 09:22 Dose: 40 mg Guaifenesin/Dextromethorphan (Robitussin Dm) 10 ml PO Q4H PRN PRN Reason: Cough Stop: 09/27/18 07:44 Last Admin: 08/01/18 09:56 Dose: 10 ml Haloperidol Lactate (Haldol) 0.5 mg PO TID [facility] Stop: 09/27/18 08:59 Last Admin: 08/01/18 09:22 Dose: 0.5 mg Levofloxacin (Levaquin Pb) 500 mg in 100 mls @ 100 mls/hr IV Q24HR [facility] Stop: 09/29/18 13:44 Last Admin: 07/31/18 14:51 Dose: 100 mls/hr Levothyroxine Sodium (Synthroid) 0.05 mg PO DAILY [facility] Stop: 09/27/18 08:59 Last Admin: 08/01/18 09:24 Dose: 0.05 mg Lisinopril (Zestril) 20 mg PO DAILY [facility] Stop: 09/27/18 08:59 Last Admin: 08/01/18 09:24 Dose: 20 mg Lorazepam (Ativan) 0.5 mg PO Q6HR PRN; Protocol PRN Reason: Anxiety Stop: 09/28/18 16:40 Last Admin: 08/01/18 00:45 Dose: 0.5 mg Lorazepam (Ativan) 1 mg IVP Q4HR PRN; Protocol PRN Reason: Agitation Stop: 09/30/18 04:30 Last Admin: 08/01/18 05:06 Dose: 1 mg Magnesium Hydroxide (Milk Of Magnesia) 30 ml PO DAILY PRN PRN Reason: Constipation Stop: 09/28/18 16:40 Memantine (Namenda) 5 mg PO DAILY [facility] Stop: 09/29/18 08:59 Last Admin: 08/01/18 09:24 Dose: 5 mg Methylprednisolone Sodium Succinate (Solu-Medrol) 20 mg IVP Q12HR [facility] Stop: 09/29/18 20:59 Last Admin: 08/01/18 10:05 Dose: 20 mg Miscellaneous (Probiotic Screen) 1 ea [facility] PRN PRN PRN Reason: PROTOCOL Stop: 09/30/18 14:08 Thiamine HCl (Vitamin B1) 200 mg PO DAILY [facility] Stop: 09/29/18 08:59 Last Admin: 08/01/18 09:23 Dose: 200 mg Vitamin B Complex/Vit C/Folic Acid (Vitamin B Complex W/Vitamin C) 1 tab PO DAILY [facility] Stop: 09/27/18 08:59 Last Admin: 08/01/18 09:23 Dose: 1 tab General: no acute distress, well developed, well nourished HEENT: atraumatic, normocephalic, PERRLA, EOMI Neck: supple, no thyromegaly Cardiovascular: S1S2, regular Lungs: clear to percussion, wheeze, rhonchi Abdomen: soft, no tender, no distended, no mass, no hepatomegaly, no splenomegaly Extremities: no cyanosis, no clubbing, no edema Neurological: awake, alert, oriented, CN 2-12 intact Skin: intact Infectious Disease Assmt/Plan - Assessment Assessment: 1. Sepsis. 2. Pneumonia. 3. COPD. 4. CHF. 5. HTN. 6. Dementia. 7. Anemia of cd. - Plan Plan: Change antibiotics to vanco IV and Zosyn. CT a/p. Sepsis w/u.
--- NOTE | 2018-08-01 14:55 | Diagnostic Imaging Report ---
CT abdomen and pelvis without intravenous contrast Indication: Sepsis Comparison: None, Technique: Axial images were obtained from the lung bases to the bilateral proximal femurs without IV contrast. Coronal reconstructions were made. total DLP: [id number] , CTDI14 FINDINGS: Bilateral small to moderate effusions are seen with bibasal infiltrates and consolidative changes. Exam is limited due to lack of IV and oral contrast. No evidence of focal hepatic or splenic lesions. Assessment of pancreas and adrenal glands is limited on this exam. No hydronephrosis or nephrolithiasis. There is marked distention of the urinary bladder with mild urinary bladder wall thickening anteriorly. Nonspecific gas and fluid-filled loops of bowel are noted. Small amount of fluid is seen within the pelvis. Mild haziness of the mesenteric fat planes also noted. The appendix is not visualized. Moderate atherosclerosis is noted. There is severe anasarca. Degenerative changes spine are noted mild scoliosis. 5 mm sclerotic density, likely bone island seen at L5. IMPRESSION: Limited exam due to lack of IV and oral contrast Distended urinary bladder with mild bilateral thickening anteriorly. Inflammatory or infiltrative process cannot be excluded. Nonspecific gas-filled loops of bowel with moderate stool noted. The appendix is not visualized Severe anasarca. Small amount of free fluid is also noted in the abdomen and pelvis and mild haziness of the mesenteric and pelvic fat planes, probably related to patient's edema. Bilateral [id number] effusions and bibasal infiltrates. Mild atherosclerosis.
--- NOTE | 2018-08-01 15:32 | General Progress Note ---
Subjective - Review of Systems Service Date: 08/01/18 Subjective: Patient still complained of swelling in the legs or shortness of breath Objective - Results Result Diagrams: 08/01/18 05:50 08/01/18 05:50 Recent Labs: Laboratory Last Values WBC 23.0 Th/cmm (4.8-10.8) H* 08/01/18 05:50 RBC 4.51 Mil/cmm (3.80-5.80) 08/01/18 05:50 Hgb 12.8 gm/dL (12-16) 08/01/18 05:50 Hct 38.2 % (41.0-60) L 08/01/18 05:50 MCV 84.8 fl (80-99) 08/01/18 05:50 MCH 28.3 pg (27.0-31.0) 08/01/18 05:50 MCHC Differential 33.3 pg (28.0-36.0) 08/01/18 05:50 RDW 15.1 % (11.5-20.0) 08/01/18 05:50 Plt Count 390 Th/cmm (150-400) 08/01/18 05:50 MPV 6.5 fl 08/01/18 05:50 Add Manual Diff YES 08/01/18 05:50 Neutrophils % 62.6 % (40.0-80.0) 07/29/18 04:15 Band Neutrophils % 0 % (0-10) 08/01/18 05:50 Lymphocytes % 20.2 % (20.0-50.0) 07/29/18 04:15 Monocytes % 12.8 % (2.0-10.0) H 07/29/18 04:15 Eosinophils % 4.1 % (0.0-5.0) 07/29/18 04:15 Basophils % 0.3 % (0.0-2.0) 07/29/18 04:15 Neutrophils (Manual) 90 % (40-80) H 08/01/18 05:50 Lymphocytes 4 % (20-50) L 08/01/18 05:50 Monocytes 6 % (2-10) 08/01/18 05:50 Eosinophils 0 % (0-5) 08/01/18 05:50 Basophils 0 % (0-3) 08/01/18 05:50 Platelet Estimate ADEQUATE (NORMAL) 07/31/18 05:04 Sodium 134 mEq/L (136-145) L 08/01/18 05:50 Potassium 3.9 mEq/L (3.5-5.1) 08/01/18 05:50 Chloride 106 mEq/L (98-107) 08/01/18 05:50 Carbon Dioxide 20.4 mEq/L (21.0-31.0) L 08/01/18 05:50 Anion Gap 11.5 (7.0-16.0) 08/01/18 05:50 BUN 32 mg/dL (7-25) H 08/01/18 05:50 Creatinine 1.0 mg/dL (0.7-1.3) 08/01/18 05:50 Est GFR ( Amer) TNP 08/01/18 05:50 Est GFR (Non-Af Amer) TNP 08/01/18 05:50 BUN/Creatinine Ratio 32.0 08/01/18 05:50 Glucose 149 mg/dL (70-105) H 08/01/18 05:50 Whole Bld Lactic Acid 1.95 mmol/L (0.60-1.99) 08/01/18 14:30 Calcium 8.5 mg/dL (8.6-10.3) L 08/01/18 05:50 Total Bilirubin 0.2 mg/dL (0.3-1.0) L 08/01/18 05:50 AST 22 U/L (13-39) 08/01/18 05:50 ALT 24 U/L (7-52) 08/01/18 05:50 Alkaline Phosphatase 121 U/L (34-104) H 08/01/18 05:50 Creatine Kinase 246 U/L (30-223) H 07/29/18 04:15 CK-MB (CK-2) 11.1 ng/mL (0.6-6.3) H 07/29/18 04:15 Troponin I 0.02 ng/mL (0.01-0.05) 07/29/18 04:15 B-Natriuretic Peptide 304.0 pg/mL (5.0-100.0) H 07/31/18 05:04 Total Protein 5.3 gm/dL (6.0-8.3) L 08/01/18 05:50 Albumin 2.1 gm/dL (4.2-5.5) L 08/01/18 05:50 Globulin 3.2 gm/dL 08/01/18 05:50 Albumin/Globulin Ratio 0.7 (1.0-1.8) L 08/01/18 05:50 - Physical Exam Vitals and I&O: Vital Signs Temp 101.5 F 08/01/18 12:43 Pulse 108 08/01/18 12:43 Resp 18 08/01/18 12:43 BP 151/94 08/01/18 12:43 Pulse Ox 98 08/01/18 12:43 Intake & Output 07/31/18 08/01/18 08/01/18 18:59 06:59 18:59 Intake Total 480 Balance 480 Weight (lbs) 99.518 kg 99.337 kg Intake: Oral 480 Other: # Voids 1,125 # Bowel Movements 1 Weight Source Bedscale Bedscale Active Medications: Current Medications Acetaminophen (Tylenol) 325 mg PO Q4HR PRN PRN Reason: Pain or Fever >101 Stop: 09/27/18 07:42 Last Admin: 08/01/18 11:15 Dose: 325 mg Albuterol Sulfate (Albuterol 2.5mg/3ml Neb Ud) 2.5 mg HHN Q4H PRN PRN Reason: Congestion Stop: 09/27/18 07:59 Last Admin: 08/01/18 09:50 Dose: 2.5 mg Amlodipine Besylate (Norvasc) 2.5 mg PO DAILY [facility] Stop: 09/27/18 08:59 Last Admin: 08/01/18 09:23 Dose: 2.5 mg Ascorbic Acid (Vitamin C) 250 mg PO QPM [facility] Stop: 09/27/18 16:59 Last Admin: 07/31/18 17:12 Dose: 250 mg Aspirin (Ecotrin) 81 mg PO QPM [facility] Stop: 09/27/18 16:59 Last Admin: 07/31/18 17:12 Dose: 81 mg Bisacodyl (Dulcolax 10 Mg Supp) 10 mg RC DAILY PRN PRN Reason: Constipation Stop: 09/27/18 07:42 Calcium Carbonate (Tums) 500 mg PO Q4HR PRN PRN Reason: Indigestion Stop: 09/27/18 07:42 Diphenhydramine HCl (Benadryl) 50 mg PO HS PRN PRN Reason: Insomnia Stop: 09/27/18 07:42 Last Admin: 08/01/18 02:23 Dose: 50 mg Donepezil HCl (Aricept) 5 mg PO QPM [facility] Stop: 09/27/18 16:59 Last Admin: 07/31/18 17:12 Dose: 5 mg Enoxaparin Sodium (Lovenox) 40 mg SUBQ Q12HR [facility] Stop: 09/27/18 20:59 Last Admin: 08/01/18 09:22 Dose: 40 mg Ferrous Sulfate (Iron) 325 mg PO DAILY [facility] Stop: 09/27/18 08:59 Last Admin: 08/01/18 09:24 Dose: 325 mg Folic Acid (Folate) 2 mg PO DAILY [facility] Stop: 09/27/18 08:59 Last Admin: 08/01/18 09:24 Dose: 2 mg Furosemide (Lasix) 40 mg IVP DAILY [facility] Stop: 09/27/18 08:59 Last Admin: 08/01/18 09:22 Dose: 40 mg Guaifenesin/Dextromethorphan (Robitussin Dm) 10 ml PO Q4H PRN PRN Reason: Cough Stop: 09/27/18 07:44 Last Admin: 08/01/18 09:56 Dose: 10 ml Haloperidol Lactate (Haldol) 0.5 mg PO TID [facility] Stop: 09/27/18 08:59 Last Admin: 08/01/18 14:25 Dose: 0.5 mg Piperacillin Sod/Tazobactam (Sod 4.5 gm/ Sodium Chloride) 100 mls @ 100 mls/hr IV Q8HR [facility] Stop: 09/30/18 14:59 Last Admin: 08/01/18 15:17 Dose: 100 mls/hr Vancomycin HCl 2 gm/ Sodium (Chloride) 500 mls @ 250 mls/hr IV ONCE ONE Stop: 08/01/18 17:29 Vancomycin HCl 1.5 gm/ Sodium (Chloride) 500 mls @ 250 mls/hr IV Q12H [facility] Stop: 10/01/18 02:59 Levothyroxine Sodium (Synthroid) 0.05 mg PO DAILY [facility] Stop: 09/27/18 08:59 Last Admin: 08/01/18 09:24 Dose: 0.05 mg Lisinopril (Zestril) 20 mg PO DAILY [facility] Stop: 09/27/18 08:59 Last Admin: 08/01/18 09:24 Dose: 20 mg Lorazepam (Ativan) 0.5 mg PO Q6HR PRN; Protocol PRN Reason: Anxiety Stop: 09/28/18 16:40 Last Admin: 08/01/18 00:45 Dose: 0.5 mg Lorazepam (Ativan) 1 mg IVP Q4HR PRN; Protocol PRN Reason: Agitation Stop: 09/30/18 04:30 Last Admin: 08/01/18 05:06 Dose: 1 mg Magnesium Hydroxide (Milk Of Magnesia) 30 ml PO DAILY PRN PRN Reason: Constipation Stop: 09/28/18 16:40 Memantine (Namenda) 5 mg PO DAILY [facility] Stop: 09/29/18 08:59 Last Admin: 08/01/18 09:24 Dose: 5 mg Methylprednisolone Sodium Succinate (Solu-Medrol) 20 mg IVP Q12HR [facility] Stop: 09/29/18 20:59 Last Admin: 08/01/18 10:05 Dose: 20 mg Miscellaneous (Probiotic Screen) 1 ea PRN PRN PRN Reason: PROTOCOL Stop: 09/30/18 14:08 Miscellaneous (Vancomycin Iv Per Pharmacy) 1 ea PRN [facility] Stop: 09/30/18 14:44 Thiamine HCl (Vitamin B1) 200 mg PO DAILY [facility] Stop: 09/29/18 08:59 Last Admin: 08/01/18 09:23 Dose: 200 mg Vitamin B Complex/Vit C/Folic Acid (Vitamin B Complex W/Vitamin C) 1 tab PO DAILY [facility] Stop: 09/27/18 08:59 Last Admin: 08/01/18 09:23 Dose: 1 tab General: No acute distress HEENT: Other (normal) Neck: Supple, JVD, +2 carotid pulse wo bruit Cardiovascular: Regular rate, Normal S1, Normal S2, Systolic murmurs Lungs: Clear to auscultation, Normal air movement Abdomen: Bowel sounds, Soft Extremities: Pulses (normal) Neurological: Strength at 5/5 X4 ext, Cranial nerves 3-12 NL, Reflexes 2+ Assessment/Plan - Assessment Assessment: Congestive heart failure diastolic dysfunction and acute Hypertension Schizophrenia Therefore vascular disease Alcohol dependence Dermatitis - Plan Plan: Continue present management repeat BNP level Continue Lasix
[2018-08-01 15:38] LABS: URINE SOURCE FOLEY PORT
[2018-08-01 15:40] LABS: URINE BILIRUBIN NEGATIVE (NEGATIVE); URINE BLOOD LARGE (NEGATIVE); URINE GLUCOSE (UA) NEGATIVE (NEGATIVE); URINE KETONE NEGATIVE (NEGATIVE); URINE LEUKOCYTE ESTERASE NEGATIVE (NEGATIVE); URINE MICROSCOPIC INDICATED? YES; URINE NITRATE NEGATIVE (NEGATIVE); URINE PROTEIN >=300 mg/dL (NEGATIVE); URINE UROBILINOGEN 0.2 E.U./dL (0.2 - 1.0)
[2018-08-01 15:48] LABS: URINE CLARITY TURBID (CLEAR); URINE COLOR YELLOW
[2018-08-01 15:51] LABS: URINE BACTERIA MANY /hpf (NONE SEEN); URINE EPITHELIAL CELLS NONE SEEN /lpf (FEW)
[2018-08-02] MEDS ORDERED: Vancomycin HCl 1.5 GM in Sodium Chloride 0.9% 500 ML IV SCH (03:00)
--- NOTE | 2018-08-02 04:37 | Progress Notes ---
DATE: 08/01/2018 SUBJECTIVE: The patient appears to be okay, today in no distress, less congestion. OBJECTIVE: VITAL SIGNS: Has fever of 101.5, pulse 108, respirations 20, blood pressure 151/94, saturation 98%. CHEST: Good breath sounds, few rhonchi. HEART: Regular rate and rhythm. ABDOMEN: Soft. EXTREMITIES: No edema. IMAGING DATA: Chest x-ray showed mild infiltrate right lower lobe area. LABORATORY DATA: WBC is 23.0, hemoglobin 12.8, hematocrit 38.2, platelets 390. Sodium is 130, potassium 3.9, BUN 32, creatinine 1.0. ASSESSMENT: 1. Respiratory failure. 2. Chronic obstructive pulmonary disease. 3. Possible pneumonia. PLAN: 1. IV antibiotics. 2. Nebulizer. 3. Decrease steroids and diuresis and followup labs and chest x-ray. JOB# [id number]
[2018-08-02 06:40] LABS: HEMATOCRIT 34.6 % (41.0-60); HEMOGLOBIN 11.8 gm/dL (12-16); MEAN CELL VOLUME 84.4 fl (80-99); MEAN CORPUSCULAR HEMOGLOBIN 28.8 pg (27.0-31.0); MEAN CORPUSCULAR HGB CONC 34.1 pg (28.0-36.0); MEAN PLATELET VOLUME 6.1 fl; PLATELET COUNT 288 Th/cmm (150-400); RED BLOOD COUNT 4.09 Mil/cmm (3.80-5.80); RED CELL DISTRIBUTION WIDTH 15.2 % (11.5-20.0)
[2018-08-02 06:48] LABS: WHITE BLOOD COUNT 35.5 Th/cmm (4.8-10.8)
[2018-08-02 06:57] LABS: ALB/GLOB RATIO 0.6 (1.0-1.8); ALBUMIN 1.7 gm/dL (4.2-5.5); ALKALINE PHOSPHATASE 108 U/L (34-104); ANION GAP 8.3 (7.0-16.0); BILIRUBIN,TOTAL 0.3 mg/dL (0.3-1.0); BUN - UREA NITROGEN 26 mg/dL (7-25); CALCIUM SERUM 7.6 mg/dL (8.6-10.3); CARBON DIOXIDE 24.6 mEq/L (21.0-31.0); CHLORIDE 107 mEq/L (98-107); GLUCOSE 102 mg/dL (70-105); POTASSIUM SERUM 3.9 mEq/L (3.5-5.1); SGOT 19 U/L (13-39); SGPT/ALT 19 U/L (7-52); SODIUM SERUM 136 mEq/L (136-145); TOTAL PROTEIN,SERUM 4.4 gm/dL (6.0-8.3)
[2018-08-02 07:10] LABS: BAND NEUTROPHILE 2 % (0-10); BASOPHIL 0 % (0-3); EOSINOPHIL 0 % (0-5); LYMPHOCYTE 5 % (20-50); MONOCYTE 4 % (2-10); NEUTROPHILS 89 % (40-80)
[2018-08-02] MEDS: methylPREDNISolone SS 40 mg Vial IVP SCH (08:31)
[2018-08-02] MEDS: Ferrous Sulfate 325 MG TAB PO SCH (08:36)
[2018-08-02] MEDS: Multivitamin w/ Minerals Tab PO SCH (08:37)
[2018-08-02] MEDS: Levothyroxine 0.05 Mg Tab PO SCH (08:37)
[2018-08-02] MEDS: Haloperidol Lactate Oral sol. 2 mg/mL Udc PO SCH ×3 (08:37→21:32)
[2018-08-02] MEDS: Vitamin B Complex w/Vitamin C Tab PO SCH (08:38)
[2018-08-02] MEDS: Enoxaparin 40 mg/0.4 mL 0.4mL Syr SUBQ SCH ×2 (08:38→21:24)
--- NOTE | 2018-08-02 09:46 | Diagnostic Imaging Report ---
CHEST X-RAY: AP view INDICATION: Pneumonia COMPARISON: 08/01/2018 FINDINGS: Developing CHF is seen with bilateral small effusions and bibasal infiltrates. Borderline prominent heart is noted. Multiple old left rib fractures are noted. Gas distended loops of bowel the upper abdomen are noted. IMPRESSION: Developing CHF with small bilateral effusions and bibasal infiltrates.
--- NOTE | 2018-08-02 10:17 | Internal Medicine Prog Note ---
Internal Medicine Subjective - Subjective Patient seen and examined:: chart reviewed Patient is:: awake, verbal, other (less congested) Patient Complaints of:: other (General weakness) Per staff patient has:: no adverse event, no episodes of fall, confused Internal Medicine Objective - Results Result Diagrams: 08/02/18 06:20 08/02/18 06:20 Recent Labs: Laboratory Last Values WBC 35.5 Th/cmm (4.8-10.8) H* D 08/02/18 06:20 RBC 4.09 Mil/cmm (3.80-5.80) 08/02/18 06:20 Hgb 11.8 gm/dL (12-16) L 08/02/18 06:20 Hct 34.6 % (41.0-60) L 08/02/18 06:20 MCV 84.4 fl (80-99) 08/02/18 06:20 MCH 28.8 pg (27.0-31.0) 08/02/18 06:20 MCHC Differential 34.1 pg (28.0-36.0) 08/02/18 06:20 RDW 15.2 % (11.5-20.0) 08/02/18 06:20 Plt Count 288 Th/cmm (150-400) 08/02/18 06:20 MPV 6.1 fl 08/02/18 06:20 Add Manual Diff YES 08/02/18 06:20 Neutrophils % 62.6 % (40.0-80.0) 07/29/18 04:15 Band Neutrophils % 2 % (0-10) 08/02/18 06:20 Lymphocytes % 20.2 % (20.0-50.0) 07/29/18 04:15 Monocytes % 12.8 % (2.0-10.0) H 07/29/18 04:15 Eosinophils % 4.1 % (0.0-5.0) 07/29/18 04:15 Basophils % 0.3 % (0.0-2.0) 07/29/18 04:15 Neutrophils (Manual) 89 % (40-80) H 08/02/18 06:20 Lymphocytes 5 % (20-50) L 08/02/18 06:20 Monocytes 4 % (2-10) 08/02/18 06:20 Eosinophils 0 % (0-5) 08/02/18 06:20 Basophils 0 % (0-3) 08/02/18 06:20 Platelet Estimate ADEQUATE (NORMAL) 07/31/18 05:04 Sodium 136 mEq/L (136-145) 08/02/18 06:20 Potassium 3.9 mEq/L (3.5-5.1) 08/02/18 06:20 Chloride 107 mEq/L (98-107) 08/02/18 06:20 Carbon Dioxide 24.6 mEq/L (21.0-31.0) 08/02/18 06:20 Anion Gap 8.3 (7.0-16.0) 08/02/18 06:20 BUN 26 mg/dL (7-25) H 08/02/18 06:20 Creatinine 1.0 mg/dL (0.7-1.3) 08/02/18 06:20 Est GFR ( Amer) TNP 08/02/18 06:20 Est GFR (Non-Af Amer) TNP 08/02/18 06:20 BUN/Creatinine Ratio 26.0 08/02/18 06:20 Glucose 102 mg/dL (70-105) 08/02/18 06:20 Whole Bld Lactic Acid 1.95 mmol/L (0.60-1.99) 08/01/18 14:30 Calcium 7.6 mg/dL (8.6-10.3) L 08/02/18 06:20 Total Bilirubin 0.3 mg/dL (0.3-1.0) 08/02/18 06:20 AST 19 U/L (13-39) 08/02/18 06:20 ALT 19 U/L (7-52) 08/02/18 06:20 Alkaline Phosphatase 108 U/L (34-104) H 08/02/18 06:20 Creatine Kinase 246 U/L (30-223) H 07/29/18 04:15 CK-MB (CK-2) 11.1 ng/mL (0.6-6.3) H 07/29/18 04:15 Troponin I 0.02 ng/mL (0.01-0.05) 07/29/18 04:15 B-Natriuretic Peptide 304.0 pg/mL (5.0-100.0) H 07/31/18 05:04 Total Protein 4.4 gm/dL (6.0-8.3) L 08/02/18 06:20 Albumin 1.7 gm/dL (4.2-5.5) L 08/02/18 06:20 Globulin 2.7 gm/dL 08/02/18 06:20 Albumin/Globulin Ratio 0.6 (1.0-1.8) L 08/02/18 06:20 Urine Source [place] 08/01/18 15:20 Urine Color YELLOW 08/01/18 15:20 Urine Clarity TURBID (CLEAR) 08/01/18 15:20 Urine pH 6.0 (4.6 - 8.0) 08/01/18 15:20 Ur Specific [place] 1.020 (1.005-1.030) 08/01/18 15:20 Urine Protein >=300 mg/dL (NEGATIVE) 08/01/18 15:20 Urine Glucose (UA) NEGATIVE mg/dL (NEGATIVE) 08/01/18 15:20 Urine Ketones NEGATIVE mg/dL (NEGATIVE) 08/01/18 15:20 Urine Blood LARGE (NEGATIVE) H 08/01/18 15:20 Urine Nitrate NEGATIVE (NEGATIVE) 08/01/18 15:20 Urine Bilirubin NEGATIVE (NEGATIVE) 08/01/18 15:20 Urine Urobilinogen 0.2 E.U./dL (0.2 - 1.0) 08/01/18 15:20 Ur Leukocyte Esterase NEGATIVE (NEGATIVE) 08/01/18 15:20 Urine RBC 2-5 /hpf (0-5) H 08/01/18 15:20 Urine WBC 10-25 /hpf (0-5) H 08/01/18 15:20 Ur Epithelial Cells NONE SEEN /lpf (FEW) 08/01/18 15:20 Urine Bacteria MANY /hpf (NONE SEEN) H 08/01/18 15:20 - Physical Exam Vitals and I&O: Vital Signs Temp 98.4 F 08/01/18 19:40 Pulse 79 08/02/18 08:37 Resp 20 08/02/18 07:33 BP 170/76 08/02/18 08:37 Pulse Ox 95 08/02/18 07:33 Intake & Output 08/01/18 08/02/18 08/02/18 18:59 06:59 18:59 Intake Total 100 560 Output Total 925 Balance 100 -365 Weight (lbs) 94.347 kg Intake: Intake, IV Amount 100 100 Piperacillin Sodium/ 100 100 Tazobact 4.5 gm In Sodium Chloride 0.9% 100 ml @ 100 mls/hr IV Q8HR [facility] Rx #:[id number] Oral 460 Output: Urine 925 Other: Weight Source Bedscale Active Medications: Current Medications Acetaminophen (Tylenol) 325 mg PO Q4HR PRN PRN Reason: Pain or Fever >101 Stop: 09/27/18 07:42 Last Admin: 08/01/18 11:15 Dose: 325 mg Albuterol Sulfate (Albuterol 2.5mg/3ml Neb Ud) 2.5 mg HHN Q4H PRN PRN Reason: Congestion Stop: 09/27/18 07:59 Last Admin: 08/01/18 09:50 Dose: 2.5 mg Amlodipine Besylate (Norvasc) 2.5 mg PO DAILY [facility] Stop: 09/27/18 08:59 Last Admin: 08/02/18 08:36 Dose: 2.5 mg Ascorbic Acid (Vitamin C) 250 mg PO QPM [facility] Stop: 09/27/18 16:59 Last Admin: 08/01/18 16:58 Dose: 250 mg Aspirin (Ecotrin) 81 mg PO QPM [facility] Stop: 09/27/18 16:59 Last Admin: 08/01/18 16:58 Dose: 81 mg Bisacodyl (Dulcolax 10 Mg Supp) 10 mg RC DAILY PRN PRN Reason: Constipation Stop: 09/27/18 07:42 Calcium Carbonate (Tums) 500 mg PO Q4HR PRN PRN Reason: Indigestion Stop: 09/27/18 07:42 Diphenhydramine HCl (Benadryl) 50 mg PO HS PRN PRN Reason: Insomnia Stop: 09/27/18 07:42 Last Admin: 08/01/18 02:23 Dose: 50 mg Donepezil HCl (Aricept) 5 mg PO QPM [facility] Stop: 09/27/18 16:59 Last Admin: 08/01/18 16:58 Dose: 5 mg Enoxaparin Sodium (Lovenox) 40 mg SUBQ Q12HR [facility] Stop: 09/27/18 20:59 Last Admin: 08/02/18 08:38 Dose: 40 mg Ferrous Sulfate (Iron) 325 mg PO DAILY [facility] Stop: 09/27/18 08:59 Last Admin: 08/02/18 08:36 Dose: 325 mg Folic Acid (Folate) 2 mg PO DAILY [facility] Stop: 09/27/18 08:59 Last Admin: 08/02/18 08:36 Dose: 2 mg Furosemide (Lasix) 40 mg IVP DAILY [facility] Stop: 09/27/18 08:59 Last Admin: 08/02/18 08:35 Dose: 40 mg Guaifenesin/Dextromethorphan (Robitussin Dm) 10 ml PO Q4H PRN PRN Reason: Cough Stop: 09/27/18 07:44 Last Admin: 08/01/18 09:56 Dose: 10 ml Haloperidol Lactate (Haldol) 0.5 mg PO TID [facility] Stop: 09/27/18 08:59 Last Admin: 08/02/18 08:37 Dose: Not Given Piperacillin Sod/Tazobactam (Sod 4.5 gm/ Sodium Chloride) 100 mls @ 100 mls/hr IV Q8HR [facility] Stop: 09/30/18 14:59 Last Admin: 08/02/18 05:00 Dose: 100 mls/hr Vancomycin HCl 1.5 gm/ Sodium (Chloride) 500 mls @ 250 mls/hr IV Q12HR@0200, 1400 [facility] Stop: 10/01/18 02:59 Levothyroxine Sodium (Synthroid) 0.05 mg PO DAILY [facility] Stop: 09/27/18 08:59 Last Admin: 08/02/18 08:37 Dose: 0.05 mg Lisinopril (Zestril) 20 mg PO DAILY [facility] Stop: 09/27/18 08:59 Last Admin: 08/02/18 08:37 Dose: 20 mg Lorazepam (Ativan) 0.5 mg PO Q6HR PRN; Protocol PRN Reason: Anxiety Stop: 09/28/18 16:40 Last Admin: 08/01/18 00:45 Dose: 0.5 mg Lorazepam (Ativan) 1 mg IVP Q4HR PRN; Protocol PRN Reason: Agitation Stop: 09/30/18 04:30 Last Admin: 08/01/18 05:06 Dose: 1 mg Magnesium Hydroxide (Milk Of Magnesia) 30 ml PO DAILY PRN PRN Reason: Constipation Stop: 09/28/18 16:40 Memantine (Namenda) 5 mg PO DAILY [facility] Stop: 09/29/18 08:59 Last Admin: 08/02/18 08:36 Dose: 5 mg Methylprednisolone Sodium Succinate (Solu-Medrol) 20 mg IVP DAILY [facility] Stop: 10/01/18 08:59 Last Admin: 08/02/18 08:31 Dose: 20 mg Miscellaneous (Probiotic Screen) 1 ea PRN PRN PRN Reason: PROTOCOL Stop: 09/30/18 14:08 Miscellaneous (Vancomycin Iv Per Pharmacy) 1 [facility] PRN [facility] Stop: 09/30/18 14:44 Thiamine HCl (Vitamin B1) 200 mg PO DAILY [facility] Stop: 09/29/18 08:59 Last Admin: 08/02/18 08:35 Dose: 200 mg Vitamin B Complex/Vit C/Folic Acid (Vitamin B Complex W/Vitamin C) 1 tab PO DAILY [facility] Stop: 09/27/18 08:59 Last Admin: 08/02/18 08:38 Dose: 1 tab General: weak, edematous HEENT: NC/AT, PERRLA Neck: Supple, No JVD Lungs: CTAB Cardiovascular: Normal S1 Abdomen: soft Extremities: edema, other (Generalized edema) Internal Medicine Assmt/Plan - Assessment Assessment: Hypertension Mild CHF Dementia Anemia Severe Protein Calorie Malnutrition Schizophrenia PVD Dermatitis Past Alcohol Dependence Acute Diastolic dysfunction - Plan Plan: Continue to monitor closely Continue present meds as directed Monitor Intake/Output daily Monitor Os Supplemental Oxygen Cardio Consult Fall precaution Monitor Mental health status Continue present care management Nutritional Asmnt/Malnutr-PDOC - Dietary Evaluation Malnutrition Findings (Please click <Entered> for more info): Nutritional Asmnt/Malnutrition Start: 08/01/18 17: 20 Text: Status: Complete Freq: Protocol: Document 08/01/18 17:20 [email or web address] (Rec: 08/01/18 17:27 [email or web address]) Nutritional Asmnt/Malnutrition Patient General Information Nutritional Screening Moderate Risk Diagnosis anasarca Pertinent Medical Hx/Surgical Hx CHF, HTN, dementia, anemia Subjective Information Pt seen sitting up in bed having lunch, able to eat by himself. Per EMR, PO intake 90 -100%. Current Diet Order/ Nutrition Support low sodium, CAMRON, mech soft chinely chopped Pertinent Medications vit C, iron, folate, lasix, synthroid, vancomycin, piperacillin, vit B1, vit B complex with vit C and folic acid Pertinent Labs 08/01 Na 134, BUN 32, Glucose 149, Ca 8.5, Alb 2.1 Nutritional Hx/Data Height 1.8 m Height (Calculated Centimeters) 180.3 Current Weight (lbs) 99.337 kg Weight (Calculated Kilograms) 99.3 Weight (Calculated Grams) 43745.7 [place] Body Weight 172 Body Mass Index (BMI) 30.5 Weight Status Obese GI Symptoms GI Symptoms None Last BM 07/31 Difficult in: None Skin Integrity/Comment: intact, dryness Current %PO Good (75-100%) Estimated Nutritional Goals BEE in Kcals: Adj wt of IBW Calories/Kcals/Kg 23-27 Kcals Calculated [id number] Protein: Adj wt of IBW Protein g/k.8-1 Protein Calculated 66-83 Fluid: ml 1909-2241ml (1ml/kcal) Nutritional Problem No current Nutrition Prob Problem N/A Intervention/Recommendation Comments 1. Continue with low sodium CAMRON, mech soft finely chopped diet as ordered. 2. Monitor PO intake, wt, labs and skin integrity 3. F/U as low risk in 7 days Expected Outcomes/Goals Expected Outcomes/Goals 1. PO intake to meet at least 75% of nutritional needs. 2. Wt stability, skin to remain intact, labs to approach WNL.
[2018-08-02] MEDS: Vancomycin HCl 1.5 GM in Sodium Chloride 0.9% 500 ML IV SCH (14:11)
--- NOTE | 2018-08-02 14:37 | General Progress Note ---
Subjective - Review of Systems Service Date: 08/02/18 Subjective: Patient still complained of swelling in the legs or shortness of breath Blood cultures positive for gram-positive clusters Objective - Results Result Diagrams: 08/02/18 06:20 08/02/18 06:20 Recent Labs: Laboratory Last Values WBC 35.5 Th/cmm (4.8-10.8) H* D 08/02/18 06:20 RBC 4.09 Mil/cmm (3.80-5.80) 08/02/18 06:20 Hgb 11.8 gm/dL (12-16) L 08/02/18 06:20 Hct 34.6 % (41.0-60) L 08/02/18 06:20 MCV 84.4 fl (80-99) 08/02/18 06:20 MCH 28.8 pg (27.0-31.0) 08/02/18 06:20 MCHC Differential 34.1 pg (28.0-36.0) 08/02/18 06:20 RDW 15.2 % (11.5-20.0) 08/02/18 06:20 Plt Count 288 Th/cmm (150-400) 08/02/18 06:20 MPV 6.1 fl 08/02/18 06:20 Add Manual Diff YES 08/02/18 06:20 Neutrophils % 62.6 % (40.0-80.0) 07/29/18 04:15 Band Neutrophils % 2 % (0-10) 08/02/18 06:20 Lymphocytes % 20.2 % (20.0-50.0) 07/29/18 04:15 Monocytes % 12.8 % (2.0-10.0) H 07/29/18 04:15 Eosinophils % 4.1 % (0.0-5.0) 07/29/18 04:15 Basophils % 0.3 % (0.0-2.0) 07/29/18 04:15 Neutrophils (Manual) 89 % (40-80) H 08/02/18 06:20 Lymphocytes 5 % (20-50) L 08/02/18 06:20 Monocytes 4 % (2-10) 08/02/18 06:20 Eosinophils 0 % (0-5) 08/02/18 06:20 Basophils 0 % (0-3) 08/02/18 06:20 Platelet Estimate ADEQUATE (NORMAL) 07/31/18 05:04 Sodium 136 mEq/L (136-145) 08/02/18 06:20 Potassium 3.9 mEq/L (3.5-5.1) 08/02/18 06:20 Chloride 107 mEq/L (98-107) 08/02/18 06:20 Carbon Dioxide 24.6 mEq/L (21.0-31.0) 08/02/18 06:20 Anion Gap 8.3 (7.0-16.0) 08/02/18 06:20 BUN 26 mg/dL (7-25) H 08/02/18 06:20 Creatinine 1.0 mg/dL (0.7-1.3) 08/02/18 06:20 Est GFR ( Amer) TNP 08/02/18 06:20 Est GFR (Non-Af Amer) TNP 08/02/18 06:20 BUN/Creatinine Ratio 26.0 08/02/18 06:20 Glucose 102 mg/dL (70-105) 08/02/18 06:20 Whole Bld Lactic Acid 1.95 mmol/L (0.60-1.99) 08/01/18 14:30 Calcium 7.6 mg/dL (8.6-10.3) L 08/02/18 06:20 Total Bilirubin 0.3 mg/dL (0.3-1.0) 08/02/18 06:20 AST 19 U/L (13-39) 08/02/18 06:20 ALT 19 U/L (7-52) 08/02/18 06:20 Alkaline Phosphatase 108 U/L (34-104) H 08/02/18 06:20 Creatine Kinase 246 U/L (30-223) H 07/29/18 04:15 CK-MB (CK-2) 11.1 ng/mL (0.6-6.3) H 07/29/18 04:15 Troponin I 0.02 ng/mL (0.01-0.05) 07/29/18 04:15 B-Natriuretic Peptide 304.0 pg/mL (5.0-100.0) H 07/31/18 05:04 Total Protein 4.4 gm/dL (6.0-8.3) L 08/02/18 06:20 Albumin 1.7 gm/dL (4.2-5.5) L 08/02/18 06:20 Globulin 2.7 gm/dL 08/02/18 06:20 Albumin/Globulin Ratio 0.6 (1.0-1.8) L 08/02/18 06:20 Urine Source SIMS PORT 08/01/18 15:20 Urine Color YELLOW 08/01/18 15:20 Urine Clarity TURBID (CLEAR) 08/01/18 15:20 Urine pH 6.0 (4.6 - 8.0) 08/01/18 15:20 Ur Specific [place] 1.020 (1.005-1.030) 08/01/18 15:20 Urine Protein >=300 mg/dL (NEGATIVE) 08/01/18 15:20 Urine Glucose (UA) NEGATIVE mg/dL (NEGATIVE) 08/01/18 15:20 Urine Ketones NEGATIVE mg/dL (NEGATIVE) 08/01/18 15:20 Urine Blood LARGE (NEGATIVE) H 08/01/18 15:20 Urine Nitrate NEGATIVE (NEGATIVE) 08/01/18 15:20 Urine Bilirubin NEGATIVE (NEGATIVE) 08/01/18 15:20 Urine Urobilinogen 0.2 E.U./dL (0.2 - 1.0) 08/01/18 15:20 Ur Leukocyte Esterase NEGATIVE (NEGATIVE) 08/01/18 15:20 Urine RBC 2-5 /hpf (0-5) H 08/01/18 15:20 Urine WBC 10-25 /hpf (0-5) H 08/01/18 15:20 Ur Epithelial Cells NONE SEEN /lpf (FEW) 08/01/18 15:20 Urine Bacteria MANY /hpf (NONE SEEN) H 08/01/18 15:20 - Physical Exam Vitals and I&O: Vital Signs Temp 98.2 F 08/02/18 07:00 Pulse 79 08/02/18 08:37 Resp 18 08/02/18 12:00 BP 170/76 08/02/18 08:37 Pulse Ox 95 08/02/18 07:33 Intake & Output 08/01/18 08/02/18 08/02/18 18:59 06:59 18:59 Intake Total 100 660 100 Output Total 925 Balance 100 -265 100 Weight (lbs) 94.347 kg 94.347 kg Intake: Intake, IV Amount 100 200 100 Piperacillin Sodium/ 100 200 100 Tazobact 4.5 gm In Sodium Chloride 0.9% 100 ml @ 100 mls/hr IV Q8HR [facility] Rx #:[id number] Oral 460 Output: Urine 925 Other: Weight Source Bedscale Bedscale Active Medications: Current Medications Acetaminophen (Tylenol) 325 mg PO Q4HR PRN PRN Reason: Pain or Fever >101 Stop: 09/27/18 07:42 Last Admin: 08/01/18 11:15 Dose: 325 mg Albuterol Sulfate (Albuterol 2.5mg/3ml Neb Ud) 2.5 mg HHN Q4H PRN PRN Reason: Congestion Stop: 09/27/18 07:59 Last Admin: 08/01/18 09:50 Dose: 2.5 mg Amlodipine Besylate (Norvasc) 2.5 mg PO DAILY [facility] Stop: 09/27/18 08:59 Last Admin: 08/02/18 08:36 Dose: 2.5 mg Ascorbic Acid (Vitamin C) 250 mg PO QPM [facility] Stop: 09/27/18 16:59 Last Admin: 08/01/18 16:58 Dose: 250 mg Aspirin (Ecotrin) 81 mg PO QPM [facility] Stop: 09/27/18 16:59 Last Admin: 08/01/18 16:58 Dose: 81 mg Bisacodyl (Dulcolax 10 Mg Supp) 10 mg RC DAILY PRN PRN Reason: Constipation Stop: 09/27/18 07:42 Calcium Carbonate (Tums) 500 mg PO Q4HR PRN PRN Reason: Indigestion Stop: 09/27/18 07:42 Diphenhydramine HCl (Benadryl) 50 mg PO HS PRN PRN Reason: Insomnia Stop: 09/27/18 07:42 Last Admin: 08/01/18 02:23 Dose: 50 mg Donepezil HCl (Aricept) 5 mg PO QPM [facility] Stop: 09/27/18 16:59 Last Admin: 08/01/18 16:58 Dose: 5 mg Enoxaparin Sodium (Lovenox) 40 mg SUBQ Q12HR [facility] Stop: 09/27/18 20:59 Last Admin: 08/02/18 08:38 Dose: 40 mg Ferrous Sulfate (Iron) 325 mg PO DAILY [facility] Stop: 09/27/18 08:59 Last Admin: 08/02/18 08:36 Dose: 325 mg Folic Acid (Folate) 2 mg PO DAILY [facility] Stop: 09/27/18 08:59 Last Admin: 08/02/18 08:36 Dose: 2 mg Furosemide (Lasix) 40 mg IVP DAILY [facility] Stop: 09/27/18 08:59 Last Admin: 08/02/18 08:35 Dose: 40 mg Guaifenesin/Dextromethorphan (Robitussin Dm) 10 ml PO Q4H PRN PRN Reason: Cough Stop: 09/27/18 07:44 Last Admin: 08/01/18 09:56 Dose: 10 ml Haloperidol Lactate (Haldol) 0.5 mg PO TID [facility] Stop: 09/27/18 08:59 Last Admin: 08/02/18 14:01 Dose: Not Given Piperacillin Sod/Tazobactam (Sod 4.5 gm/ Sodium Chloride) 100 mls @ 100 mls/hr IV Q8HR [facility] Stop: 09/30/18 14:59 Last Infusion: 08/02/18 13:05 Dose: Infused Vancomycin HCl 1.5 gm/ Sodium (Chloride) 500 mls @ 250 mls/hr IV Q12HR@0200, 1400 [facility] Stop: 10/01/18 02:59 Last Admin: 08/02/18 14:11 Dose: 250 mls/hr Levothyroxine Sodium (Synthroid) 0.05 mg PO DAILY [facility] Stop: 09/27/18 08:59 Last Admin: 08/02/18 08:37 Dose: 0.05 mg Lisinopril (Zestril) 20 mg PO DAILY [facility] Stop: 09/27/18 08:59 Last Admin: 08/02/18 08:37 Dose: 20 mg Lorazepam (Ativan) 0.5 mg PO Q6HR PRN; Protocol PRN Reason: Anxiety Stop: 09/28/18 16:40 Last Admin: 08/01/18 00:45 Dose: 0.5 mg Lorazepam (Ativan) 1 mg IVP Q4HR PRN; Protocol PRN Reason: Agitation Stop: 09/30/18 04:30 Last Admin: 08/01/18 05:06 Dose: 1 mg Magnesium Hydroxide (Milk Of Magnesia) 30 ml PO DAILY PRN PRN Reason: Constipation Stop: 09/28/18 16:40 Memantine (Namenda) 5 mg PO DAILY [facility] Stop: 09/29/18 08:59 Last Admin: 08/02/18 08:36 Dose: 5 mg Methylprednisolone Sodium Succinate (Solu-Medrol) 20 mg IVP DAILY [facility] Stop: 10/01/18 08:59 Last Admin: 08/02/18 08:31 Dose: 20 mg Miscellaneous (Probiotic Screen) 1 [facility] PRN PRN PRN Reason: PROTOCOL Stop: 09/30/18 14:08 Miscellaneous (Vancomycin Iv Per Pharmacy) 1 [facility] PRN [facility] Stop: 09/30/18 14:44 Thiamine HCl (Vitamin B1) 200 mg PO DAILY [facility] Stop: 09/29/18 08:59 Last Admin: 08/02/18 08:35 Dose: 200 mg Vitamin B Complex/Vit C/Folic Acid (Vitamin B Complex W/Vitamin C) 1 tab PO DAILY [facility] Stop: 09/27/18 08:59 Last Admin: 08/02/18 08:38 Dose: 1 tab General: No acute distress HEENT: Other (normal) Neck: Supple, JVD, +2 carotid pulse wo bruit Cardiovascular: Regular rate, Normal S1, Normal S2, Systolic murmurs Lungs: Clear to auscultation, Normal air movement Abdomen: Bowel sounds, Soft Extremities: Pulses (normal) Neurological: Strength at 5/5 X4 ext, Cranial nerves 3-12 NL, Reflexes 2+ Assessment/Plan - Assessment Assessment: Congestive heart failure diastolic dysfunction and acute Hypertension Schizophrenia Therefore vascular disease Alcohol dependence Dermatitis Culture positive" Rule out aspiration pneumonia - Plan Plan: Continue present management repeat BNP level Continue Lasix IV antibiotics Nutritional Asmnt/Malnutr-PDOC - Dietary Evaluation Malnutrition Findings (Please click <Entered> for more info): Nutritional Asmnt/Malnutrition Start: 08/01/18 17: 20 Text: Status: Complete Freq: Protocol: Document 08/01/18 17:20 [email or web address] (Rec: 08/01/18 17:27 [email or web address]) Nutritional Asmnt/Malnutrition Patient General Information Nutritional Screening Moderate Risk Diagnosis anasarca Pertinent Medical Hx/Surgical Hx CHF, HTN, dementia, anemia Subjective Information Pt seen sitting up in bed having lunch, able to eat by himself. Per EMR, PO intake 90 -100%. Current Diet Order/ Nutrition Support low sodium, CAMRON, mech soft chinely chopped Pertinent Medications vit C, iron, folate, lasix, synthroid, vancomycin, piperacillin, vit B1, vit B complex with vit C and folic acid Pertinent Labs 08/01 Na 134, BUN 32, Glucose 149, Ca 8.5, Alb 2.1 Nutritional Hx/Data Height 1.8 m Height (Calculated Centimeters) 180.3 Current Weight (lbs) 99.337 kg Weight (Calculated Kilograms) 99.3 Weight (Calculated Grams) 50468.7 [place] Body Weight 172 Body Mass Index (BMI) 30.5 Weight Status Obese GI Symptoms GI Symptoms None Last BM 07/31 Difficult in: None Skin Integrity/Comment: intact, dryness Current %PO Good (75-100%) Estimated Nutritional Goals BEE in Kcals: Adj wt of IBW Calories/Kcals/Kg 23-27 Kcals Calculated 0342-8105 Protein: Adj wt of IBW Protein g/k.8-1 Protein Calculated 66-83 Fluid: ml 1909-2241ml (1ml/kcal) Nutritional Problem No current Nutrition Prob Problem N/A Intervention/Recommendation Comments 1. Continue with low sodium CAMRON, mech soft finely chopped diet as ordered. 2. Monitor PO intake, wt, labs and skin integrity 3. F/U as low risk in 7 days Expected Outcomes/Goals Expected Outcomes/Goals 1. PO intake to meet at least 75% of nutritional needs. 2. Wt stability, skin to remain intact, labs to approach WNL.
--- NOTE | 2018-08-03 00:31 | Progress Notes ---
DATE: 08/02/2018 PULMONARY PROGRESS NOTE SUBJECTIVE: The patient appears to be doing okay. OBJECTIVE: GENERAL: No distress. VITAL SIGNS: Temperature 98.2, T-max 101.5, pulse 79, respirations 18, blood pressure 170/76, saturation 98%. CHEST: Good breath sounds. No wheezing, no crackles. HEART: Regular rate and rhythm. ABDOMEN: Soft. EXTREMITIES: No edema. IMAGING: Chest x-ray: Bilateral infiltrate, worsening. IMPRESSION: 1. Respiratory failure. 2. Pneumonia. 3. Severe leukocytosis. 4. Dysphagia. 5. Chronic obstructive pulmonary disease. PLAN: 1. Discontinue Solu-Medrol. 2. Continue antibiotics. 3. Nebulizer treatment. 4. Pulmonary toilet. 5. Followup chest x-ray. JOB# [id number]
[2018-08-03] MEDS: Vancomycin HCl 1.5 GM in Sodium Chloride 0.9% 500 ML IV SCH (02:44)
[2018-08-03 08:47] LABS: MEAN PLATELET VOLUME 6.4 fl
[2018-08-03 08:50] LABS: HEMATOCRIT 37.5 % (41.0-60); HEMOGLOBIN 12.7 gm/dL (12-16); MEAN CORPUSCULAR HEMOGLOBIN 28.8 pg (27.0-31.0); MEAN CORPUSCULAR HGB CONC 33.9 pg (28.0-36.0); PLATELET COUNT 267 Th/cmm (150-400); RED BLOOD COUNT 4.41 Mil/cmm (3.80-5.80); RED CELL DISTRIBUTION WIDTH 15.2 % (11.5-20.0)
[2018-08-03 08:54] LABS: WHITE BLOOD COUNT 21.7 Th/cmm (4.8-10.8)
[2018-08-03 08:59] LABS: ALB/GLOB RATIO 0.7 (1.0-1.8); ALBUMIN 1.9 gm/dL (4.2-5.5); ALKALINE PHOSPHATASE 127 U/L (34-104); ANION GAP 9.4 (7.0-16.0); BILIRUBIN,TOTAL 0.3 mg/dL (0.3-1.0); BUN - UREA NITROGEN 23 mg/dL (7-25); CALCIUM SERUM 7.8 mg/dL (8.6-10.3); CARBON DIOXIDE 25.2 mEq/L (21.0-31.0); CHLORIDE 107 mEq/L (98-107); GLUCOSE 106 mg/dL (70-105); POTASSIUM SERUM 3.6 mEq/L (3.5-5.1); SGOT 15 U/L (13-39); SGPT/ALT 18 U/L (7-52); SODIUM SERUM 138 mEq/L (136-145); TOTAL PROTEIN,SERUM 4.8 gm/dL (6.0-8.3)
[2018-08-03] MEDS: Haloperidol Lactate Oral sol. 2 mg/mL Udc PO SCH ×5 (09:02→20:28)
[2018-08-03] MEDS: Ferrous Sulfate 325 MG TAB PO SCH ×2 (09:03→13:03)
[2018-08-03] MEDS: Levothyroxine 0.05 Mg Tab PO SCH ×2 (09:03→13:05)
[2018-08-03] MEDS: Multivitamin w/ Minerals Tab PO SCH ×2 (09:04→13:08)
[2018-08-03] MEDS: Vitamin B Complex w/Vitamin C Tab PO SCH ×2 (09:04→09:30)
[2018-08-03] MEDS: Enoxaparin 40 mg/0.4 mL 0.4mL Syr SUBQ SCH ×2 (09:13→20:29)
[2018-08-03] MEDS: methylPREDNISolone SS 40 mg Vial IVP SCH (09:13)
[2018-08-03 09:33] LABS: BAND NEUTROPHILE 1 % (0-10); EOSINOPHIL 1 % (0-5); LYMPHOCYTE 8 % (20-50); MONOCYTE 2 % (2-10); NEUTROPHILS 88 % (40-80)
[2018-08-03 09:34] LABS: BASOPHIL 0 % (0-3)
--- NOTE | 2018-08-03 09:47 | Diagnostic Imaging Report ---
CHEST X-RAY: AP view INDICATION: Shortness of breath COMPARISON: 08/02/2018 FINDINGS: Congestive changes are seen with small effusions and right basal infiltrates. Heart size is borderline prominent. IMPRESSION: Persistent Congestive changes with small effusions and right basal infiltrates.
--- NOTE | 2018-08-03 11:27 | Internal Medicine Prog Note ---
Internal Medicine Subjective - Subjective Patient seen and examined:: chart reviewed Patient is:: awake, verbal, other (Blood cultures positive for gram-positive clusters, still c/o sob) Patient Complaints of:: SOB Per staff patient has:: no adverse event, no episodes of fall, confused Internal Medicine Objective - Results Result Diagrams: 08/03/18 08:30 08/03/18 08:30 Recent Labs: Laboratory Last Values WBC 21.7 Th/cmm (4.8-10.8) H* D 08/03/18 08:30 RBC 4.41 Mil/cmm (3.80-5.80) 08/03/18 08:30 Hgb 12.7 gm/dL (12-16) 08/03/18 08:30 Hct 37.5 % (41.0-60) L 08/03/18 08:30 MCV 85.0 fl (80-99) 08/03/18 08:30 MCH 28.8 pg (27.0-31.0) 08/03/18 08:30 MCHC Differential 33.9 pg (28.0-36.0) 08/03/18 08:30 RDW 15.2 % (11.5-20.0) 08/03/18 08:30 Plt Count 267 Th/cmm (150-400) 08/03/18 08:30 MPV 6.4 fl 08/03/18 08:30 Add Manual Diff YES 08/03/18 08:30 Neutrophils % 62.6 % (40.0-80.0) 07/29/18 04:15 Band Neutrophils % 1 % (0-10) 08/03/18 08:30 Lymphocytes % 20.2 % (20.0-50.0) 07/29/18 04:15 Monocytes % 12.8 % (2.0-10.0) H 07/29/18 04:15 Eosinophils % 4.1 % (0.0-5.0) 07/29/18 04:15 Basophils % 0.3 % (0.0-2.0) 07/29/18 04:15 Neutrophils (Manual) 88 % (40-80) H 08/03/18 08:30 Lymphocytes 8 % (20-50) L 08/03/18 08:30 Monocytes 2 % (2-10) 08/03/18 08:30 Eosinophils 1 % (0-5) 08/03/18 08:30 Basophils 0 % (0-3) 08/03/18 08:30 Platelet Estimate ADEQUATE (NORMAL) 07/31/18 05:04 Sodium 138 mEq/L (136-145) 08/03/18 08:30 Potassium 3.6 mEq/L (3.5-5.1) 08/03/18 08:30 Chloride 107 mEq/L (98-107) 08/03/18 08:30 Carbon Dioxide 25.2 mEq/L (21.0-31.0) 08/03/18 08:30 Anion Gap 9.4 (7.0-16.0) 08/03/18 08:30 BUN 23 mg/dL (7-25) 08/03/18 08:30 Creatinine 1.0 mg/dL (0.7-1.3) 08/03/18 08:30 Est GFR ( Amer) TNP 08/03/18 08:30 Est GFR (Non-Af Amer) TNP 08/03/18 08:30 BUN/Creatinine Ratio 23.0 08/03/18 08:30 Glucose 106 mg/dL (70-105) H 08/03/18 08:30 Whole Bld Lactic Acid 1.95 mmol/L (0.60-1.99) 08/01/18 14:30 Calcium 7.8 mg/dL (8.6-10.3) L 08/03/18 08:30 Total Bilirubin 0.3 mg/dL (0.3-1.0) 08/03/18 08:30 AST 15 U/L (13-39) 08/03/18 08:30 ALT 18 U/L (7-52) 08/03/18 08:30 Alkaline Phosphatase 127 U/L (34-104) H 08/03/18 08:30 Creatine Kinase 246 U/L (30-223) H 07/29/18 04:15 CK-MB (CK-2) 11.1 ng/mL (0.6-6.3) H 07/29/18 04:15 Troponin I 0.02 ng/mL (0.01-0.05) 07/29/18 04:15 B-Natriuretic Peptide 304.0 pg/mL (5.0-100.0) H 07/31/18 05:04 Total Protein 4.8 gm/dL (6.0-8.3) L 08/03/18 08:30 Albumin 1.9 gm/dL (4.2-5.5) L 08/03/18 08:30 Globulin 2.9 gm/dL 08/03/18 08:30 Albumin/Globulin Ratio 0.7 (1.0-1.8) L 08/03/18 08:30 Urine Source SIMS PORT 08/01/18 15:20 Urine Color YELLOW 08/01/18 15:20 Urine Clarity TURBID (CLEAR) 08/01/18 15:20 Urine pH 6.0 (4.6 - 8.0) 08/01/18 15:20 Ur Specific [place] 1.020 (1.005-1.030) 08/01/18 15:20 Urine Protein >=300 mg/dL (NEGATIVE) 08/01/18 15:20 Urine Glucose (UA) NEGATIVE mg/dL (NEGATIVE) 08/01/18 15:20 Urine Ketones NEGATIVE mg/dL (NEGATIVE) 08/01/18 15:20 Urine Blood LARGE (NEGATIVE) H 08/01/18 15:20 Urine Nitrate NEGATIVE (NEGATIVE) 08/01/18 15:20 Urine Bilirubin NEGATIVE (NEGATIVE) 08/01/18 15:20 Urine Urobilinogen 0.2 E.U./dL (0.2 - 1.0) 08/01/18 15:20 Ur Leukocyte Esterase NEGATIVE (NEGATIVE) 08/01/18 15:20 Urine RBC 2-5 /hpf (0-5) H 08/01/18 15:20 Urine WBC 10-25 /hpf (0-5) H 08/01/18 15:20 Ur Epithelial Cells NONE SEEN /lpf (FEW) 08/01/18 15:20 Urine Bacteria MANY /hpf (NONE SEEN) H 08/01/18 15:20 Vancomycin Trough 20.0 ug/mL (5-10) H 08/03/18 00:53 - Physical Exam Vitals and I&O: Vital Signs Temp 97.7 F 08/03/18 08:00 Pulse 94 08/03/18 08:00 Resp 18 08/03/18 11:00 BP 127/76 08/03/18 09:12 Pulse Ox 92 08/03/18 07:52 Intake & Output 08/02/18 08/03/18 08/03/18 18:59 06:59 18:59 Intake Total 1000 100 Output Total 2100 1550 Balance -1100 100 -1550 Weight (lbs) 94.347 kg 94.347 kg 94.347 kg Intake: Intake, IV Amount 600 100 Piperacillin Sodium/ 100 100 Tazobact 4.5 gm In Sodium Chloride 0.9% 100 ml @ 100 mls/hr IV Q8HR [facility] Rx #:[id number] Vancomycin HCl 1.5 gm In 500 Sodium Chloride 0.9% 500 ml @ 250 mls/hr IV Q12HR@ 0200,1400 [facility] Rx#: [id number] Oral 400 Output: Urine 2100 1550 Stool 0 Other: # Bowel Movements 0 Weight Source Bedscale Bedscale Bedscale Active Medications: Current Medications Acetaminophen (Tylenol) 325 mg PO Q4HR PRN PRN Reason: Pain or Fever >101 Stop: 09/27/18 07:42 Last Admin: 08/01/18 11:15 Dose: 325 mg Albuterol Sulfate (Albuterol 2.5mg/3ml Neb Ud) 2.5 mg HHN Q4H PRN PRN Reason: Congestion Stop: 09/27/18 07:59 Last Admin: 08/01/18 09:50 Dose: 2.5 mg Amlodipine Besylate (Norvasc) 2.5 mg PO DAILY [facility] Stop: 09/27/18 08:59 Last Admin: 08/03/18 09:03 Dose: Not Given Ascorbic Acid (Vitamin C) 250 mg PO QPM [facility] Stop: 09/27/18 16:59 Last Admin: 08/02/18 17:28 Dose: 250 mg Aspirin (Ecotrin) 81 mg PO QPM [facility] Stop: 09/27/18 16:59 Last Admin: 08/02/18 17:28 Dose: 81 mg Bisacodyl (Dulcolax 10 Mg Supp) 10 mg RC DAILY PRN PRN Reason: Constipation Stop: 09/27/18 07:42 Calcium Carbonate (Tums) 500 mg PO Q4HR PRN PRN Reason: Indigestion Stop: 09/27/18 07:42 Diphenhydramine HCl (Benadryl) 50 mg PO HS PRN PRN Reason: Insomnia Stop: 09/27/18 07:42 Last Admin: 08/01/18 02:23 Dose: 50 mg Donepezil HCl (Aricept) 5 mg PO QPM [facility] Stop: 09/27/18 16:59 Last Admin: 08/02/18 17:28 Dose: 5 mg Enoxaparin Sodium (Lovenox) 40 mg SUBQ Q12HR [facility] Stop: 09/27/18 20:59 Last Admin: 08/03/18 09:13 Dose: 40 mg Ferrous Sulfate (Iron) 325 mg PO DAILY [facility] Stop: 09/27/18 08:59 Last Admin: 08/03/18 09:03 Dose: Not Given Folic Acid (Folate) 2 mg PO DAILY [facility] Stop: 09/27/18 08:59 Last Admin: 08/03/18 09:03 Dose: Not Given Furosemide (Lasix) 40 mg IVP DAILY [facility] Stop: 09/27/18 08:59 Last Admin: 08/03/18 09:12 Dose: 40 mg Guaifenesin/Dextromethorphan (Robitussin Dm) 10 ml PO Q4H PRN PRN Reason: Cough Stop: 09/27/18 07:44 Last Admin: 08/01/18 09:56 Dose: 10 ml Haloperidol Lactate (Haldol) 0.5 mg PO TID [facility] Stop: 09/27/18 08:59 Last Admin: 08/03/18 09:02 Dose: Not Given Piperacillin Sod/Tazobactam (Sod 4.5 gm/ Sodium Chloride) 100 mls @ 100 mls/hr IV Q8HR [facility] Stop: 09/30/18 14:59 Last Admin: 08/03/18 05:21 Dose: 100 mls/hr Vancomycin HCl 1 gm/ Sodium (Chloride) 250 mls @ 165 mls/hr IV Q12HR@0200,1400 [facility] Stop: 10/02/18 13:59 Levothyroxine Sodium (Synthroid) 0.05 mg PO DAILY [facility] Stop: 09/27/18 08:59 Last Admin: 08/03/18 09:03 Dose: Not Given Lisinopril (Zestril) 20 mg PO DAILY [facility] Stop: 09/27/18 08:59 Last Admin: 08/03/18 09:04 Dose: Not Given Lorazepam (Ativan) 0.5 mg PO Q6HR PRN; Protocol PRN Reason: Anxiety Stop: 09/28/18 16:40 Last Admin: 08/01/18 00:45 Dose: 0.5 mg Lorazepam (Ativan) 1 mg IVP Q4HR PRN; Protocol PRN Reason: Agitation Stop: 09/30/18 04:30 Last Admin: 08/01/18 05:06 Dose: 1 mg Magnesium Hydroxide (Milk Of Magnesia) 30 ml PO DAILY [facility] PRN Reason: Constipation Stop: 09/28/18 16:40 Memantine (Namenda) 5 mg PO DAILY [facility] Stop: 09/29/18 08:59 Last Admin: 08/03/18 09:04 Dose: Not Given Methylprednisolone Sodium Succinate (Solu-Medrol) 20 mg IVP DAILY [facility] Stop: 10/01/18 08:59 Last Admin: 08/03/18 09:13 Dose: 20 mg Miscellaneous (Probiotic Screen) 1 [facility] PRN PRN PRN Reason: PROTOCOL Stop: 09/30/18 14:08 Miscellaneous (Vancomycin Iv Per Pharmacy) 1 [facility] PRN [facility] Stop: 09/30/18 14:44 Thiamine HCl (Vitamin B1) 200 mg PO DAILY [facility] Stop: 09/29/18 08:59 Last Admin: 08/03/18 09:04 Dose: Not Given Vitamin B Complex/Vit C/Folic Acid (Vitamin B Complex W/Vitamin C) 1 tab PO DAILY [facility] Stop: 09/27/18 08:59 Last Admin: 08/03/18 09:04 Dose: Not Given General: weak, edematous HEENT: NC/AT, PERRLA Neck: Supple, No JVD Lungs: CTAB Cardiovascular: Normal S1 Abdomen: soft Extremities: edema, other (Generalized edema) Internal Medicine Assmt/Plan - Assessment Assessment: Hypertension Mild CHF Dementia Anemia Severe Protein Calorie Malnutrition Schizophrenia PVD Dermatitis Past Alcohol Dependence Acute Diastolic dysfunction - Plan Plan: Continue to monitor closely Continue present meds as directed Monitor Intake/Output daily Monitor Os Supplemental Oxygen Cardio Consult Fall precaution Monitor Mental health status Continue present care management Nutritional Asmnt/Malnutr-PDOC - Dietary Evaluation Malnutrition Findings (Please click <Entered> for more info): Nutritional Asmnt/Malnutrition Start: 08/01/18 17: 20 Text: Status: Complete Freq: Protocol: Document 08/01/18 17:20 LYNN (Rec: 08/01/18 17:27 LYNN [email or web address]) Nutritional Asmnt/Malnutrition Patient General Information Nutritional Screening Moderate Risk Diagnosis anasarca Pertinent Medical Hx/Surgical Hx CHF, HTN, dementia, anemia Subjective Information Pt seen sitting up in bed having lunch, able to eat by himself. Per EMR, PO intake 90 -100%. Current Diet Order/ Nutrition Support low sodium, CAMRON, mech soft chinely chopped Pertinent Medications vit C, iron, folate, lasix, synthroid, vancomycin, piperacillin, vit B1, vit B complex with vit C and folic acid Pertinent Labs 08/01 Na 134, BUN 32, Glucose 149, Ca 8.5, Alb 2.1 Nutritional Hx/Data Height 1.8 m Height (Calculated Centimeters) 180.3 Current Weight (lbs) 99.337 kg Weight (Calculated Kilograms) 99.3 Weight (Calculated Grams) 20105.7 [place] Body Weight 172 Body Mass Index (BMI) 30.5 Weight Status Obese GI Symptoms GI Symptoms None Last BM 07/31 Difficult in: None Skin Integrity/Comment: intact, dryness Current %PO Good (75-100%) Estimated Nutritional Goals BEE in Kcals: Adj wt of IBW Calories/Kcals/Kg 23-27 Kcals Calculated 1247-9042 Protein: Adj wt of IBW Protein g/k.8-1 Protein Calculated 66-83 Fluid: ml 1909-2241ml (1ml/kcal) Nutritional Problem No current Nutrition Prob Problem N/A Intervention/Recommendation Comments 1. Continue with low sodium CAMRON, mech soft finely chopped diet as ordered. 2. Monitor PO intake, wt, labs and skin integrity 3. F/U as low risk in 7 days Expected Outcomes/Goals Expected Outcomes/Goals 1. PO intake to meet at least 75% of nutritional needs. 2. Wt stability, skin to remain intact, labs to approach WNL.
--- NOTE | 2018-08-03 14:54 | General Progress Note ---
Subjective - Review of Systems Service Date: 08/03/18 Subjective: Patient still complained of swelling in the legs or shortness of breath Blood cultures positive for gram-positive clusters Patient passed swallowing Objective - Results Result Diagrams: 08/03/18 08:30 08/03/18 08:30 Recent Labs: Laboratory Last Values WBC 21.7 Th/cmm (4.8-10.8) H* D 08/03/18 08:30 RBC 4.41 Mil/cmm (3.80-5.80) 08/03/18 08:30 Hgb 12.7 gm/dL (12-16) 08/03/18 08:30 Hct 37.5 % (41.0-60) L 08/03/18 08:30 MCV 85.0 fl (80-99) 08/03/18 08:30 MCH 28.8 pg (27.0-31.0) 08/03/18 08:30 MCHC Differential 33.9 pg (28.0-36.0) 08/03/18 08:30 RDW 15.2 % (11.5-20.0) 08/03/18 08:30 Plt Count 267 Th/cmm (150-400) 08/03/18 08:30 MPV 6.4 fl 08/03/18 08:30 Add Manual Diff YES 08/03/18 08:30 Neutrophils % 62.6 % (40.0-80.0) 07/29/18 04:15 Band Neutrophils % 1 % (0-10) 08/03/18 08:30 Lymphocytes % 20.2 % (20.0-50.0) 07/29/18 04:15 Monocytes % 12.8 % (2.0-10.0) H 07/29/18 04:15 Eosinophils % 4.1 % (0.0-5.0) 07/29/18 04:15 Basophils % 0.3 % (0.0-2.0) 07/29/18 04:15 Neutrophils (Manual) 88 % (40-80) H 08/03/18 08:30 Lymphocytes 8 % (20-50) L 08/03/18 08:30 Monocytes 2 % (2-10) 08/03/18 08:30 Eosinophils 1 % (0-5) 08/03/18 08:30 Basophils 0 % (0-3) 08/03/18 08:30 Platelet Estimate ADEQUATE (NORMAL) 07/31/18 05:04 Sodium 138 mEq/L (136-145) 08/03/18 08:30 Potassium 3.6 mEq/L (3.5-5.1) 08/03/18 08:30 Chloride 107 mEq/L (98-107) 08/03/18 08:30 Carbon Dioxide 25.2 mEq/L (21.0-31.0) 08/03/18 08:30 Anion Gap 9.4 (7.0-16.0) 08/03/18 08:30 BUN 23 mg/dL (7-25) 08/03/18 08:30 Creatinine 1.0 mg/dL (0.7-1.3) 08/03/18 08:30 Est GFR ( Amer) TNP 08/03/18 08:30 Est GFR (Non-Af Amer) TNP 08/03/18 08:30 BUN/Creatinine Ratio 23.0 08/03/18 08:30 Glucose 106 mg/dL (70-105) H 08/03/18 08:30 Whole Bld Lactic Acid 1.95 mmol/L (0.60-1.99) 08/01/18 14:30 Calcium 7.8 mg/dL (8.6-10.3) L 08/03/18 08:30 Total Bilirubin 0.3 mg/dL (0.3-1.0) 08/03/18 08:30 AST 15 U/L (13-39) 08/03/18 08:30 ALT 18 U/L (7-52) 08/03/18 08:30 Alkaline Phosphatase 127 U/L (34-104) H 08/03/18 08:30 Creatine Kinase 246 U/L (30-223) H 07/29/18 04:15 CK-MB (CK-2) 11.1 ng/mL (0.6-6.3) H 07/29/18 04:15 Troponin I 0.02 ng/mL (0.01-0.05) 07/29/18 04:15 B-Natriuretic Peptide 304.0 pg/mL (5.0-100.0) H 07/31/18 05:04 Total Protein 4.8 gm/dL (6.0-8.3) L 08/03/18 08:30 Albumin 1.9 gm/dL (4.2-5.5) L 08/03/18 08:30 Globulin 2.9 gm/dL 08/03/18 08:30 Albumin/Globulin Ratio 0.7 (1.0-1.8) L 08/03/18 08:30 Urine Source SIMS PORT 08/01/18 15:20 Urine Color YELLOW 08/01/18 15:20 Urine Clarity TURBID (CLEAR) 08/01/18 15:20 Urine pH 6.0 (4.6 - 8.0) 08/01/18 15:20 Ur Specific [place] 1.020 (1.005-1.030) 08/01/18 15:20 Urine Protein >=300 mg/dL (NEGATIVE) 08/01/18 15:20 Urine Glucose (UA) NEGATIVE mg/dL (NEGATIVE) 08/01/18 15:20 Urine Ketones NEGATIVE mg/dL (NEGATIVE) 08/01/18 15:20 Urine Blood LARGE (NEGATIVE) H 08/01/18 15:20 Urine Nitrate NEGATIVE (NEGATIVE) 08/01/18 15:20 Urine Bilirubin NEGATIVE (NEGATIVE) 08/01/18 15:20 Urine Urobilinogen 0.2 E.U./dL (0.2 - 1.0) 08/01/18 15:20 Ur Leukocyte Esterase NEGATIVE (NEGATIVE) 08/01/18 15:20 Urine RBC 2-5 /hpf (0-5) H 08/01/18 15:20 Urine WBC 10-25 /hpf (0-5) H 08/01/18 15:20 Ur Epithelial Cells NONE SEEN /lpf (FEW) 08/01/18 15:20 Urine Bacteria MANY /hpf (NONE SEEN) H 08/01/18 15:20 Vancomycin Trough 20.0 ug/mL (5-10) H 08/03/18 00:53 - Physical Exam Vitals and I&O: Vital Signs Temp 98.3 F 08/03/18 11:37 Pulse 84 08/03/18 13:06 Resp 18 08/03/18 14:25 BP 139/73 08/03/18 13:06 Pulse Ox 92 08/03/18 07:52 Intake & Output 08/02/18 08/03/18 08/03/18 18:59 06:59 18:59 Intake Total 1000 200 Output Total 2100 2300 Balance -1100 200 -2300 Weight (lbs) 94.347 kg 94.347 kg 94.347 kg Intake: Intake, IV Amount 600 200 Piperacillin Sodium/ 100 200 Tazobact 4.5 gm In Sodium Chloride 0.9% 100 ml @ 100 mls/hr IV Q8HR [facility] Rx #:[id number] Vancomycin HCl 1.5 gm In 500 Sodium Chloride 0.9% 500 ml @ 250 mls/hr IV Q12HR@ 0200,1400 [facility] Rx#: [id number] Oral 400 Output: Urine 2100 2300 Stool 0 Other: # Bowel Movements 0 Weight Source Bedscale Bedscale Bedscale Active Medications: Current Medications Acetaminophen (Tylenol) 325 mg PO Q4HR PRN PRN Reason: Pain or Fever >101 Stop: 09/27/18 07:42 Last Admin: 08/01/18 11:15 Dose: 325 mg Albuterol Sulfate (Albuterol 2.5mg/3ml Neb Ud) 2.5 mg HHN Q4H PRN PRN Reason: Congestion Stop: 09/27/18 07:59 Last Admin: 08/01/18 09:50 Dose: 2.5 mg Amlodipine Besylate (Norvasc) 2.5 mg PO DAILY [facility] Stop: 09/27/18 08:59 Last Admin: 08/03/18 13:00 Dose: 2.5 mg Ascorbic Acid (Vitamin C) 250 mg PO QPM [facility] Stop: 09/27/18 16:59 Last Admin: 08/02/18 17:28 Dose: 250 mg Aspirin (Ecotrin) 81 mg PO QPM [facility] Stop: 09/27/18 16:59 Last Admin: 08/02/18 17:28 Dose: 81 mg Bisacodyl (Dulcolax 10 Mg Supp) 10 mg RC DAILY PRN PRN Reason: Constipation Stop: 09/27/18 07:42 Calcium Carbonate (Tums) 500 mg PO Q4HR PRN PRN Reason: Indigestion Stop: 09/27/18 07:42 Diphenhydramine HCl (Benadryl) 50 mg PO HS PRN PRN Reason: Insomnia Stop: 09/27/18 07:42 Last Admin: 08/01/18 02:23 Dose: 50 mg Donepezil HCl (Aricept) 5 mg PO QPM [facility] Stop: 09/27/18 16:59 Last Admin: 08/02/18 17:28 Dose: 5 mg Enoxaparin Sodium (Lovenox) 40 mg SUBQ Q12HR [facility] Stop: 09/27/18 20:59 Last Admin: 08/03/18 09:13 Dose: 40 mg Ferrous Sulfate (Iron) 325 mg PO DAILY [facility] Stop: 09/27/18 08:59 Last Admin: 08/03/18 13:03 Dose: 325 mg Folic Acid (Folate) 2 mg PO DAILY [facility] Stop: 09/27/18 08:59 Last Admin: 08/03/18 13:03 Dose: 2 mg Furosemide (Lasix) 40 mg IVP DAILY [facility] Stop: 09/27/18 08:59 Last Admin: 08/03/18 09:12 Dose: 40 mg Guaifenesin/Dextromethorphan (Robitussin Dm) 10 ml PO Q4H PRN PRN Reason: Cough Stop: 09/27/18 07:44 Last Admin: 08/01/18 09:56 Dose: 10 ml Haloperidol Lactate (Haldol) 0.5 mg PO TID [facility] Stop: 09/27/18 08:59 Last Admin: 08/03/18 13:47 Dose: 0.5 mg Piperacillin Sod/Tazobactam (Sod 4.5 gm/ Sodium Chloride) 100 mls @ 100 mls/hr IV Q8HR [facility] Stop: 09/30/18 14:59 Last Admin: 08/03/18 12:26 Dose: 100 mls/hr Vancomycin HCl 1 gm/ Sodium (Chloride) 250 mls @ 165 mls/hr IV Q12HR@0200,1400 [facility] Stop: 10/02/18 13:59 Last Admin: 08/03/18 13:45 Dose: 165 mls/hr Levothyroxine Sodium (Synthroid) 0.05 mg PO DAILY [facility] Stop: 09/27/18 08:59 Last Admin: 08/03/18 13:05 Dose: 0.05 mg Lisinopril (Zestril) 20 mg PO DAILY [facility] Stop: 09/27/18 08:59 Last Admin: 08/03/18 13:06 Dose: 20 mg Lorazepam (Ativan) 0.5 mg PO Q6HR PRN; Protocol PRN Reason: Anxiety Stop: 09/28/18 16:40 Last Admin: 08/01/18 00:45 Dose: 0.5 mg Lorazepam (Ativan) 1 mg IVP Q4HR PRN; Protocol PRN Reason: Agitation Stop: 09/30/18 04:30 Last Admin: 08/01/18 05:06 Dose: 1 mg Magnesium Hydroxide (Milk Of Magnesia) 30 ml PO DAILY PRN PRN Reason: Constipation Stop: 09/28/18 16:40 Memantine (Namenda) 5 mg PO DAILY [facility] Stop: 09/29/18 08:59 Last Admin: 08/03/18 13:05 Dose: 5 mg Methylprednisolone Sodium Succinate (Solu-Medrol) 20 mg IVP DAILY [facility] Stop: 10/01/18 08:59 Last Admin: 08/03/18 09:13 Dose: 20 mg Miscellaneous (Probiotic Screen) 1 [facility] PRN PRN PRN Reason: PROTOCOL Stop: 09/30/18 14:08 Miscellaneous (Vancomycin Iv Per Pharmacy) 1 [facility] PRN [facility] Stop: 09/30/18 14:44 Thiamine HCl (Vitamin B1) 200 mg PO DAILY [facility] Stop: 09/29/18 08:59 Last Admin: 08/03/18 13:07 Dose: 200 mg Vitamin B Complex/Vit C/Folic Acid (Vitamin B Complex W/Vitamin C) 1 tab PO DAILY [facility] Stop: 09/27/18 08:59 Last Admin: 08/03/18 09:30 Dose: 1 tab General: No acute distress HEENT: Other (normal) Neck: Supple, JVD, +2 carotid pulse wo bruit Cardiovascular: Regular rate, Normal S1, Normal S2, Systolic murmurs Lungs: Clear to auscultation, Normal air movement Abdomen: Bowel sounds, Soft Extremities: Pulses (normal) Neurological: Strength at 5/5 X4 ext, Cranial nerves 3-12 NL, Reflexes 2+ Assessment/Plan - Assessment Assessment: Congestive heart failure diastolic dysfunction and acute Hypertension Schizophrenia Therefore vascular disease Alcohol dependence Dermatitis Culture positive" Rule out aspiration pneumonia - Plan Plan: Continue present management repeat BNP level Continue Lasix IV antibiotics Nutritional Asmnt/Malnutr-PDOC - Dietary Evaluation Malnutrition Findings (Please click <Entered> for more info): Nutritional Asmnt/Malnutrition Start: 08/01/18 17: 20 Text: Status: Complete Freq: Protocol: Document 08/01/18 17:20 [facility] (Rec: 08/01/18 17:27 [facility] [email or web address]) Nutritional Asmnt/Malnutrition Patient General Information Nutritional Screening Moderate Risk Diagnosis anasarca Pertinent Medical Hx/Surgical Hx CHF, HTN, dementia, anemia Subjective Information Pt seen sitting up in bed having lunch, able to eat by himself. Per EMR, PO intake 90 -100%. Current Diet Order/ Nutrition Support low sodium, CAMRON, mech soft chinely chopped Pertinent Medications vit C, iron, folate, lasix, synthroid, vancomycin, piperacillin, vit B1, vit B complex with vit C and folic acid Pertinent Labs 08/01 Na 134, BUN 32, Glucose 149, Ca 8.5, Alb 2.1 Nutritional Hx/Data Height 1.8 m Height (Calculated Centimeters) 180.3 Current Weight (lbs) 99.337 kg Weight (Calculated Kilograms) 99.3 Weight (Calculated Grams) 83121.7 [place] Body Weight 172 Body Mass Index (BMI) 30.5 Weight Status Obese GI Symptoms GI Symptoms None Last BM 07/31 Difficult in: None Skin Integrity/Comment: intact, dryness Current %PO Good (75-100%) Estimated Nutritional Goals BEE in Kcals: Adj wt of IBW Calories/Kcals/Kg 23-27 Kcals Calculated 7779-7105 Protein: Adj wt of IBW Protein g/k.8-1 Protein Calculated 66-83 Fluid: ml 1909-2241ml (1ml/kcal) Nutritional Problem No current Nutrition Prob Problem N/A Intervention/Recommendation Comments 1. Continue with low sodium CAMRON, mech soft finely chopped diet as ordered. 2. Monitor PO intake, wt, labs and skin integrity 3. F/U as low risk in 7 days Expected Outcomes/Goals Expected Outcomes/Goals 1. PO intake to meet at least 75% of nutritional needs. 2. Wt stability, skin to remain intact, labs to approach WNL.
--- NOTE | 2018-08-03 18:14 | Infectious Disease Prog Note ---
Infectious Disease Subjective - Review of Systems Service Date: 08/03/18 Subjective: Fever improved. Infectious Disease Objective - Results Result Diagrams: 08/03/18 08:30 08/03/18 08:30 Recent Labs: Laboratory Last Values WBC 21.7 Th/cmm (4.8-10.8) H* D 08/03/18 08:30 RBC 4.41 Mil/cmm (3.80-5.80) 08/03/18 08:30 Hgb 12.7 gm/dL (12-16) 08/03/18 08:30 Hct 37.5 % (41.0-60) L 08/03/18 08:30 MCV 85.0 fl (80-99) 08/03/18 08:30 MCH 28.8 pg (27.0-31.0) 08/03/18 08:30 MCHC Differential 33.9 pg (28.0-36.0) 08/03/18 08:30 RDW 15.2 % (11.5-20.0) 08/03/18 08:30 Plt Count 267 Th/cmm (150-400) 08/03/18 08:30 MPV 6.4 fl 08/03/18 08:30 Add Manual Diff YES 08/03/18 08:30 Neutrophils % 62.6 % (40.0-80.0) 07/29/18 04:15 Band Neutrophils % 1 % (0-10) 08/03/18 08:30 Lymphocytes % 20.2 % (20.0-50.0) 07/29/18 04:15 Monocytes % 12.8 % (2.0-10.0) H 07/29/18 04:15 Eosinophils % 4.1 % (0.0-5.0) 07/29/18 04:15 Basophils % 0.3 % (0.0-2.0) 07/29/18 04:15 Neutrophils (Manual) 88 % (40-80) H 08/03/18 08:30 Lymphocytes 8 % (20-50) L 08/03/18 08:30 Monocytes 2 % (2-10) 08/03/18 08:30 Eosinophils 1 % (0-5) 08/03/18 08:30 Basophils 0 % (0-3) 08/03/18 08:30 Platelet Estimate ADEQUATE (NORMAL) 07/31/18 05:04 Sodium 138 mEq/L (136-145) 08/03/18 08:30 Potassium 3.6 mEq/L (3.5-5.1) 08/03/18 08:30 Chloride 107 mEq/L (98-107) 08/03/18 08:30 Carbon Dioxide 25.2 mEq/L (21.0-31.0) 08/03/18 08:30 Anion Gap 9.4 (7.0-16.0) 08/03/18 08:30 BUN 23 mg/dL (7-25) 08/03/18 08:30 Creatinine 1.0 mg/dL (0.7-1.3) 08/03/18 08:30 Est GFR ( Amer) TNP 08/03/18 08:30 Est GFR (Non-Af Amer) TNP 08/03/18 08:30 BUN/Creatinine Ratio 23.0 08/03/18 08:30 Glucose 106 mg/dL (70-105) H 08/03/18 08:30 Whole Bld Lactic Acid 1.95 mmol/L (0.60-1.99) 08/01/18 14:30 Calcium 7.8 mg/dL (8.6-10.3) L 08/03/18 08:30 Total Bilirubin 0.3 mg/dL (0.3-1.0) 08/03/18 08:30 AST 15 U/L (13-39) 08/03/18 08:30 ALT 18 U/L (7-52) 08/03/18 08:30 Alkaline Phosphatase 127 U/L (34-104) H 08/03/18 08:30 Creatine Kinase 246 U/L (30-223) H 07/29/18 04:15 CK-MB (CK-2) 11.1 ng/mL (0.6-6.3) H 07/29/18 04:15 Troponin I 0.02 ng/mL (0.01-0.05) 07/29/18 04:15 B-Natriuretic Peptide 304.0 pg/mL (5.0-100.0) H 07/31/18 05:04 Total Protein 4.8 gm/dL (6.0-8.3) L 08/03/18 08:30 Albumin 1.9 gm/dL (4.2-5.5) L 08/03/18 08:30 Globulin 2.9 gm/dL 08/03/18 08:30 Albumin/Globulin Ratio 0.7 (1.0-1.8) L 08/03/18 08:30 Urine Source [place] 08/01/18 15:20 Urine Color YELLOW 08/01/18 15:20 Urine Clarity TURBID (CLEAR) 08/01/18 15:20 Urine pH 6.0 (4.6 - 8.0) 08/01/18 15:20 Ur Specific [place] 1.020 (1.005-1.030) 08/01/18 15:20 Urine Protein >=300 mg/dL (NEGATIVE) 08/01/18 15:20 Urine Glucose (UA) NEGATIVE mg/dL (NEGATIVE) 08/01/18 15:20 Urine Ketones NEGATIVE mg/dL (NEGATIVE) 08/01/18 15:20 Urine Blood LARGE (NEGATIVE) H 08/01/18 15:20 Urine Nitrate NEGATIVE (NEGATIVE) 08/01/18 15:20 Urine Bilirubin NEGATIVE (NEGATIVE) 08/01/18 15:20 Urine Urobilinogen 0.2 E.U./dL (0.2 - 1.0) 08/01/18 15:20 Ur Leukocyte Esterase NEGATIVE (NEGATIVE) 08/01/18 15:20 Urine RBC 2-5 /hpf (0-5) H 08/01/18 15:20 Urine WBC 10-25 /hpf (0-5) H 08/01/18 15:20 Ur Epithelial Cells NONE SEEN /lpf (FEW) 08/01/18 15:20 Urine Bacteria MANY /hpf (NONE SEEN) H 08/01/18 15:20 Vancomycin Trough 20.0 ug/mL (5-10) H 08/03/18 00:53 - Physical Exam Vitals and I&O: Vital Signs Temp 99.3 F 08/03/18 15:49 Pulse 81 08/03/18 16:22 Resp 20 08/03/18 15:49 BP 149/83 08/03/18 16:22 Pulse Ox 95 08/03/18 15:49 Intake & Output 08/02/18 08/03/18 08/03/18 18:59 06:59 18:59 Intake Total 1000 200 Output Total 2100 4500 Balance -1100 200 -4500 Weight (lbs) 94.347 kg 94.347 kg 94.347 kg Intake: Intake, IV Amount 600 200 Piperacillin Sodium/ 100 200 Tazobact 4.5 gm In Sodium Chloride 0.9% 100 ml @ 100 mls/hr IV Q8HR [facility] Rx #:[id number] Vancomycin HCl 1.5 gm In 500 Sodium Chloride 0.9% 500 ml @ 250 mls/hr IV Q12HR@ 0200,1400 [facility] Rx#: [id number] Oral 400 Output: Urine 2100 4500 Stool 0 Other: # Bowel Movements 0 Weight Source Bedscale Bedscale Bedscale Active Medications: Current Medications Acetaminophen (Tylenol) 325 mg PO Q4HR PRN PRN Reason: Pain or Fever >101 Stop: 09/27/18 07:42 Last Admin: 08/01/18 11:15 Dose: 325 mg Albuterol Sulfate (Albuterol 2.5mg/3ml Neb Ud) 2.5 mg HHN Q4H PRN PRN Reason: Congestion Stop: 09/27/18 07:59 Last Admin: 08/01/18 09:50 Dose: 2.5 mg Amlodipine Besylate (Norvasc) 2.5 mg PO DAILY [facility] Stop: 09/27/18 08:59 Last Admin: 08/03/18 13:00 Dose: 2.5 mg Ascorbic Acid (Vitamin C) 250 mg PO QPM [facility] Stop: 09/27/18 16:59 Last Admin: 08/03/18 16:39 Dose: 250 mg Aspirin (Ecotrin) 81 mg PO QPM [facility] Stop: 09/27/18 16:59 Last Admin: 08/03/18 16:39 Dose: 81 mg Bisacodyl (Dulcolax 10 Mg Supp) 10 mg RC DAILY PRN PRN Reason: Constipation Stop: 09/27/18 07:42 Calcium Carbonate (Tums) 500 mg PO Q4HR PRN PRN Reason: Indigestion Stop: 09/27/18 07:42 Diphenhydramine HCl (Benadryl) 50 mg PO HS PRN PRN Reason: Insomnia Stop: 09/27/18 07:42 Last Admin: 08/01/18 02:23 Dose: 50 mg Donepezil HCl (Aricept) 5 mg PO QPM [facility] Stop: 09/27/18 16:59 Last Admin: 08/03/18 16:39 Dose: 5 mg Enoxaparin Sodium (Lovenox) 40 mg SUBQ Q12HR [facility] Stop: 09/27/18 20:59 Last Admin: 08/03/18 09:13 Dose: 40 mg Ferrous Sulfate (Iron) 325 mg PO DAILY [facility] Stop: 09/27/18 08:59 Last Admin: 08/03/18 13:03 Dose: 325 mg Folic Acid (Folate) 2 mg PO DAILY [facility] Stop: 09/27/18 08:59 Last Admin: 08/03/18 13:03 Dose: 2 mg Furosemide (Lasix) 40 mg IVP DAILY [facility] Stop: 09/27/18 08:59 Last Admin: 08/03/18 09:12 Dose: 40 mg Guaifenesin/Dextromethorphan (Robitussin Dm) 10 ml PO Q4H PRN PRN Reason: Cough Stop: 09/27/18 07:44 Last Admin: 08/01/18 09:56 Dose: 10 ml Haloperidol Lactate (Haldol) 0.5 mg PO TID [facility] Stop: 09/27/18 08:59 Last Admin: 08/03/18 13:47 Dose: 0.5 mg Piperacillin Sod/Tazobactam (Sod 4.5 gm/ Sodium Chloride) 100 mls @ 100 mls/hr IV Q8HR [facility] Stop: 09/30/18 14:59 Last Admin: 08/03/18 12:26 Dose: 100 mls/hr Vancomycin HCl 1 gm/ Sodium (Chloride) 250 mls @ 165 mls/hr IV Q12HR@0200,1400 [facility] Stop: 10/02/18 13:59 Last Admin: 08/03/18 13:45 Dose: 165 mls/hr Levothyroxine Sodium (Synthroid) 0.05 mg PO DAILY [facility] Stop: 09/27/18 08:59 Last Admin: 08/03/18 13:05 Dose: 0.05 mg Lisinopril (Zestril) 20 mg PO DAILY [facility] Stop: 09/27/18 08:59 Last Admin: 08/03/18 13:06 Dose: 20 mg Lorazepam (Ativan) 0.5 mg PO Q6HR PRN; Protocol PRN Reason: Anxiety Stop: 09/28/18 16:40 Last Admin: 08/01/18 00:45 Dose: 0.5 mg Lorazepam (Ativan) 1 mg IVP Q4HR PRN; Protocol PRN Reason: Agitation Stop: 09/30/18 04:30 Last Admin: 08/01/18 05:06 Dose: 1 mg Magnesium Hydroxide (Milk Of Magnesia) 30 ml PO DAILY PRN PRN Reason: Constipation Stop: 09/28/18 16:40 Memantine (Namenda) 5 mg PO DAILY [facility] Stop: 09/29/18 08:59 Last Admin: 08/03/18 13:05 Dose: 5 mg Methylprednisolone Sodium Succinate (Solu-Medrol) 20 mg IVP DAILY [facility] Stop: 10/01/18 08:59 Last Admin: 08/03/18 09:13 Dose: 20 mg Miscellaneous (Probiotic Screen) 1 [facility] PRN PRN PRN Reason: PROTOCOL Stop: 09/30/18 14:08 Miscellaneous (Vancomycin Iv Per Pharmacy) 1 [facility] PRN [facility] Stop: 09/30/18 14:44 Thiamine HCl (Vitamin B1) 200 mg PO DAILY [facility] Stop: 09/29/18 08:59 Last Admin: 08/03/18 13:07 Dose: 200 mg Vitamin B Complex/Vit C/Folic Acid (Vitamin B Complex W/Vitamin C) 1 tab PO DAILY [facility] Stop: 09/27/18 08:59 Last Admin: 08/03/18 09:30 Dose: 1 tab General: no acute distress, well developed, well nourished HEENT: atraumatic, normocephalic, PERRLA, EOMI Neck: supple, no thyromegaly Cardiovascular: S1S2, regular Lungs: clear to auscultation bilaterally, clear to percussion Abdomen: soft, no tender, no distended, no mass, no hepatomegaly Extremities: edema, no cyanosis, no clubbing Neurological: awake, alert, oriented Skin: intact Infectious Disease Assmt/Plan - Assessment Assessment: 1. Sepsis. staphylococcus sepsis, ? Staph aureus. 2. Pneumonia. 3. COPD. 4. CHF. 5. HTN. 6. Dementia. 7. Anemia of cd. - Plan Plan: Continue vanco IV and Zosyn. Sepsis w/u. Increase lasix to 40mg IV bid. Not ready for discharge. Nutritional Asmnt/Malnutr-PDOC - Dietary Evaluation Malnutrition Findings (Please click <Entered> for more info): Nutritional Asmnt/Malnutrition Start: 08/01/18 17: 20 Text: Status: Complete Freq: Protocol: Document 08/01/18 17:20 [facility] (Rec: 08/01/18 17:27 [email or web address]) Nutritional Asmnt/Malnutrition Patient General Information Nutritional Screening Moderate Risk Diagnosis anasarca Pertinent Medical Hx/Surgical Hx CHF, HTN, dementia, anemia Subjective Information Pt seen sitting up in bed having lunch, able to eat by himself. Per EMR, PO intake 90 -100%. Current Diet Order/ Nutrition Support low sodium, CAMRON, mech soft chinely chopped Pertinent Medications vit C, iron, folate, lasix, synthroid, vancomycin, piperacillin, vit B1, vit B complex with vit C and folic acid Pertinent Labs 08/01 Na 134, BUN 32, Glucose 149, Ca 8.5, Alb 2.1 Nutritional Hx/Data Height 1.8 m Height (Calculated Centimeters) 180.3 Current Weight (lbs) 99.337 kg Weight (Calculated Kilograms) 99.3 Weight (Calculated Grams) 89975.7 [place] Body Weight 172 Body Mass Index (BMI) 30.5 Weight Status Obese GI Symptoms GI Symptoms None Last BM 07/31 Difficult in: None Skin Integrity/Comment: intact, dryness Current %PO Good (75-100%) Estimated Nutritional Goals BEE in Kcals: Adj wt of IBW Calories/Kcals/Kg 23-27 Kcals Calculated 4421-6511 Protein: Adj wt of IBW Protein g/k.8-1 Protein Calculated 66-83 Fluid: ml 1909-2241ml (1ml/kcal) Nutritional Problem No current Nutrition Prob Problem N/A Intervention/Recommendation Comments 1. Continue with low sodium CAMRON, mech soft finely chopped diet as ordered. 2. Monitor PO intake, wt, labs and skin integrity 3. F/U as low risk in 7 days Expected Outcomes/Goals Expected Outcomes/Goals 1. PO intake to meet at least 75% of nutritional needs. 2. Wt stability, skin to remain intact, labs to approach WNL.
[2018-08-04 07:22] LABS: % BASOPHILS 0.1 % (0.0-2.0); % EOSINOPHILS 0.8 % (0.0-5.0); % LYMPHOCYTES 8.7 % (20.0-50.0); % MONOCYTES 6.8 % (2.0-10.0); % NEUTROPHILS 83.6 % (40.0-80.0); EOSINOPHILE ABSOLUTE 0.2 Th/cmm (0.1-0.4); HEMATOCRIT 37.9 % (41.0-60); HEMOGLOBIN 12.5 gm/dL (12-16); LYMPHOCYTE ABSOLUTE 1.6 Th/cmm (1.5-3.0); MEAN CELL VOLUME 84.8 fl (80-99); MEAN PLATELET VOLUME 6.8 fl; MONOCYTE ABSOLUTE 1.3 Th/cmm (0.3-1.0); NEUTROPHILE ABSOLUTE 15.7 Th/cmm (1.8-8.0); PLATELET COUNT 268 Th/cmm (150-400); RED BLOOD COUNT 4.48 Mil/cmm (3.80-5.80); RED CELL DISTRIBUTION WIDTH 15.2 % (11.5-20.0)
[2018-08-04 07:37] LABS: ALB/GLOB RATIO 0.6 (1.0-1.8); ALBUMIN 1.9 gm/dL (4.2-5.5); ALKALINE PHOSPHATASE 119 U/L (34-104); ANION GAP 10.3 (7.0-16.0); BILIRUBIN,TOTAL 0.3 mg/dL (0.3-1.0); BUN - UREA NITROGEN 22 mg/dL (7-25); CALCIUM SERUM 7.9 mg/dL (8.6-10.3); CARBON DIOXIDE 24.2 mEq/L (21.0-31.0); CHLORIDE 110 mEq/L (98-107); GLUCOSE 113 mg/dL (70-105); POTASSIUM SERUM 3.5 mEq/L (3.5-5.1); SGOT 13 U/L (13-39); SGPT/ALT 16 U/L (7-52); SODIUM SERUM 141 mEq/L (136-145); TOTAL PROTEIN,SERUM 4.9 gm/dL (6.0-8.3)
[2018-08-04 07:41] LABS: WHITE BLOOD COUNT 18.8 Th/cmm (4.8-10.8)
--- NOTE | 2018-08-04 09:54 | Progress Notes ---
DATE: 08/03/2018 PULMONARY PROGRESS NOTE SUBJECTIVE: The patient appears to be doing okay, comfortable. He has passed swallow evaluation, on diet now. OBJECTIVE: VITAL SIGNS: Temperature is 99.3, pulse 74, respiration 18, blood pressure 149/60, saturation 95%. CHEST: Good breath sounds. No wheezing. Decreased rhonchi. HEART: Regular rate and rhythm. ABDOMEN: Soft. EXTREMITIES: No edema. LABORATORY AND DIAGNOSTIC DATA: WBC is 21.7, hemoglobin is 12.7. Sodium is 130, potassium 3.6, BUN 23, creatinine 1.0. IMPRESSION: 1. Respiratory failure. 2. Pneumonia. 3. Chronic obstructive pulmonary disease. 4. Leukocytosis, likely he has steroids. 5. Nebulizer treatment, antibiotics and supportive care. JOB# [id number]
[2018-08-04] MEDS: Levothyroxine 0.05 Mg Tab PO SCH (10:15)
[2018-08-04] MEDS: Vitamin B Complex w/Vitamin C Tab PO SCH (10:15)
[2018-08-04] MEDS: Multivitamin w/ Minerals Tab PO SCH (10:16)
[2018-08-04] MEDS: Ferrous Sulfate 325 MG TAB PO SCH (10:16)
[2018-08-04] MEDS: Enoxaparin 40 mg/0.4 mL 0.4mL Syr SUBQ SCH ×2 (10:17→20:24)
[2018-08-04] MEDS: Haloperidol Lactate Oral sol. 2 mg/mL Udc PO SCH ×3 (10:18→20:24)
--- NOTE | 2018-08-04 11:09 | Internal Medicine Prog Note ---
Internal Medicine Subjective - Subjective Service Date: 08/04/18 Patient seen and examined:: with staff, chart reviewed Patient is:: awake, verbal, other (Patient passed swallow evalutaion, currently on diet.) Patient Complaints of:: cough, SOB Per staff patient has:: no adverse event, no episodes of fall, confused Internal Medicine Objective - Results Result Diagrams: 08/04/18 05:50 08/04/18 05:50 Recent Labs: Laboratory Last Values WBC 18.8 Th/cmm (4.8-10.8) H 08/04/18 05:50 RBC 4.48 Mil/cmm (3.80-5.80) 08/04/18 05:50 Hgb 12.5 gm/dL (12-16) 08/04/18 05:50 Hct 37.9 % (41.0-60) L 08/04/18 05:50 MCV 84.8 fl (80-99) 08/04/18 05:50 MCH 28.0 pg (27.0-31.0) 08/04/18 05:50 MCHC Differential 33.0 pg (28.0-36.0) 08/04/18 05:50 RDW 15.2 % (11.5-20.0) 08/04/18 05:50 Plt Count 268 Th/cmm (150-400) 08/04/18 05:50 MPV 6.8 fl 08/04/18 05:50 Add Manual Diff YES 08/03/18 08:30 Neutrophils % 83.6 % (40.0-80.0) H 08/04/18 05:50 Band Neutrophils % 1 % (0-10) 08/03/18 08:30 Lymphocytes % 8.7 % (20.0-50.0) L 08/04/18 05:50 Monocytes % 6.8 % (2.0-10.0) 08/04/18 05:50 Eosinophils % 0.8 % (0.0-5.0) 08/04/18 05:50 Basophils % 0.1 % (0.0-2.0) 08/04/18 05:50 Neutrophils (Manual) 88 % (40-80) H 08/03/18 08:30 Lymphocytes 8 % (20-50) L 08/03/18 08:30 Monocytes 2 % (2-10) 08/03/18 08:30 Eosinophils 1 % (0-5) 08/03/18 08:30 Basophils 0 % (0-3) 08/03/18 08:30 Platelet Estimate ADEQUATE (NORMAL) 07/31/18 05:04 Sodium 141 mEq/L (136-145) 08/04/18 05:50 Potassium 3.5 mEq/L (3.5-5.1) 08/04/18 05:50 Chloride 110 mEq/L (98-107) H 08/04/18 05:50 Carbon Dioxide 24.2 mEq/L (21.0-31.0) 08/04/18 05:50 Anion Gap 10.3 (7.0-16.0) 08/04/18 05:50 BUN 22 mg/dL (7-25) 08/04/18 05:50 Creatinine 1.0 mg/dL (0.7-1.3) 08/04/18 05:50 Est GFR ( Amer) TNP 08/04/18 05:50 Est GFR (Non-Af Amer) TNP 08/04/18 05:50 BUN/Creatinine Ratio 22.0 08/04/18 05:50 Glucose 113 mg/dL (70-105) H 08/04/18 05:50 Whole Bld Lactic Acid 1.95 mmol/L (0.60-1.99) 08/01/18 14:30 Calcium 7.9 mg/dL (8.6-10.3) L 08/04/18 05:50 Total Bilirubin 0.3 mg/dL (0.3-1.0) 08/04/18 05:50 AST 13 U/L (13-39) 08/04/18 05:50 ALT 16 U/L (7-52) 08/04/18 05:50 Alkaline Phosphatase 119 U/L (34-104) H 08/04/18 05:50 Creatine Kinase 246 U/L (30-223) H 07/29/18 04:15 CK-MB (CK-2) 11.1 ng/mL (0.6-6.3) H 07/29/18 04:15 Troponin I 0.02 ng/mL (0.01-0.05) 07/29/18 04:15 B-Natriuretic Peptide 304.0 pg/mL (5.0-100.0) H 07/31/18 05:04 Total Protein 4.9 gm/dL (6.0-8.3) L 08/04/18 05:50 Albumin 1.9 gm/dL (4.2-5.5) L 08/04/18 05:50 Globulin 3.0 gm/dL 08/04/18 05:50 Albumin/Globulin Ratio 0.6 (1.0-1.8) L 08/04/18 05:50 Urine Source SIMS PORT 08/01/18 15:20 Urine Color YELLOW 08/01/18 15:20 Urine Clarity TURBID (CLEAR) 08/01/18 15:20 Urine pH 6.0 (4.6 - 8.0) 08/01/18 15:20 Ur Specific [place] 1.020 (1.005-1.030) 08/01/18 15:20 Urine Protein >=300 mg/dL (NEGATIVE) 08/01/18 15:20 Urine Glucose (UA) NEGATIVE mg/dL (NEGATIVE) 08/01/18 15:20 Urine Ketones NEGATIVE mg/dL (NEGATIVE) 08/01/18 15:20 Urine Blood LARGE (NEGATIVE) H 08/01/18 15:20 Urine Nitrate NEGATIVE (NEGATIVE) 08/01/18 15:20 Urine Bilirubin NEGATIVE (NEGATIVE) 08/01/18 15:20 Urine Urobilinogen 0.2 E.U./dL (0.2 - 1.0) 08/01/18 15:20 Ur Leukocyte Esterase NEGATIVE (NEGATIVE) 08/01/18 15:20 Urine RBC 2-5 /hpf (0-5) H 08/01/18 15:20 Urine WBC 10-25 /hpf (0-5) H 08/01/18 15:20 Ur Epithelial Cells NONE SEEN /lpf (FEW) 08/01/18 15:20 Urine Bacteria MANY /hpf (NONE SEEN) H 08/01/18 15:20 Vancomycin Trough 20.0 ug/mL (5-10) H 08/03/18 00:53 - Physical Exam Vitals and I&O: Vital Signs Temp 97.8 F 08/04/18 07:58 Pulse 60 08/04/18 10:17 Resp 19 08/04/18 07:58 BP 151/71 08/04/18 10:17 Pulse Ox 94 08/04/18 07:58 Intake & Output 08/03/18 08/04/18 08/04/18 18:59 06:59 18:59 Intake Total 350 930 Output Total 4725 1300 Balance -4375 -370 Weight (lbs) 88.405 kg 88.405 kg Intake: Intake, IV Amount 350 450 Piperacillin Sodium/ 100 200 Tazobact 4.5 gm In Sodium Chloride 0.9% 100 ml @ 100 mls/hr IV Q8HR [facility] Rx #:[id number] Vancomycin HCl 1 gm In 250 250 Sodium Chloride 0.9% 250 ml @ 165 mls/hr IV Q12HR@ 0200,1400 [facility] Rx#: [id number] Oral 480 Output: Urine 4725 1300 Other: # Bowel Movements 0 2 Stool Characteristics Soft Formed Black Weight Source Bedscale Bedscale Active Medications: Current Medications Acetaminophen (Tylenol) 325 mg PO Q4HR PRN PRN Reason: Pain or Fever >101 Stop: 09/27/18 07:42 Last Admin: 08/01/18 11:15 Dose: 325 mg Albuterol Sulfate (Albuterol 2.5mg/3ml Neb Ud) 2.5 mg HHN Q4H PRN PRN Reason: Congestion Stop: 09/27/18 07:59 Last Admin: 08/01/18 09:50 Dose: 2.5 mg Amlodipine Besylate (Norvasc) 2.5 mg PO DAILY [facility] Stop: 09/27/18 08:59 Last Admin: 08/04/18 10:16 Dose: 2.5 mg Ascorbic Acid (Vitamin C) 250 mg PO QPM [facility] Stop: 09/27/18 16:59 Last Admin: 08/03/18 16:39 Dose: 250 mg Aspirin (Ecotrin) 81 mg PO QPM [facility] Stop: 09/27/18 16:59 Last Admin: 08/03/18 16:39 Dose: 81 mg Bisacodyl (Dulcolax 10 Mg Supp) 10 mg RC DAILY PRN PRN Reason: Constipation Stop: 09/27/18 07:42 Calcium Carbonate (Tums) 500 mg PO Q4HR PRN PRN Reason: Indigestion Stop: 09/27/18 07:42 Diphenhydramine HCl (Benadryl) 50 mg PO HS PRN PRN Reason: Insomnia Stop: 09/27/18 07:42 Last Admin: 08/01/18 02:23 Dose: 50 mg Donepezil HCl (Aricept) 5 mg PO QPM [facility] Stop: 09/27/18 16:59 Last Admin: 08/03/18 16:39 Dose: 5 mg Enoxaparin Sodium (Lovenox) 40 mg SUBQ Q12HR [facility] Stop: 09/27/18 20:59 Last Admin: 08/04/18 10:17 Dose: 40 mg Ferrous Sulfate (Iron) 325 mg PO DAILY [facility] Stop: 09/27/18 08:59 Last Admin: 08/04/18 10:16 Dose: 325 mg Folic Acid (Folate) 2 mg PO DAILY [facility] Stop: 09/27/18 08:59 Last Admin: 08/04/18 10:16 Dose: 2 mg Furosemide (Lasix) 40 mg IVP BID [facility] Stop: 10/03/18 08:59 Last Admin: 08/04/18 09:18 Dose: 40 mg Guaifenesin/Dextromethorphan (Robitussin Dm) 10 ml PO Q4H PRN PRN Reason: Cough Stop: 09/27/18 07:44 Last Admin: 08/01/18 09:56 Dose: 10 ml Haloperidol Lactate (Haldol) 0.5 mg PO TID [facility] Stop: 09/27/18 08:59 Last Admin: 08/04/18 10:18 Dose: 0.5 mg Piperacillin Sod/Tazobactam (Sod 4.5 gm/ Sodium Chloride) 100 mls @ 100 mls/hr IV Q8HR [facility] Stop: 09/30/18 14:59 Last Infusion: 08/04/18 05:40 Dose: Infused Vancomycin HCl 1 gm/ Sodium (Chloride) 250 mls @ 165 mls/hr IV Q12HR@0200,1400 [facility] Stop: 10/02/18 13:59 Last Infusion: 08/04/18 03:02 Dose: Infused Levothyroxine Sodium (Synthroid) 0.05 mg PO DAILY [facility] Stop: 09/27/18 08:59 Last Admin: 08/04/18 10:15 Dose: 0.05 mg Lisinopril (Zestril) 20 mg PO DAILY [facility] Stop: 09/27/18 08:59 Last Admin: 08/04/18 10:17 Dose: 20 mg Lorazepam (Ativan) 0.5 mg PO Q6HR PRN; Protocol PRN Reason: Anxiety Stop: 09/28/18 16:40 Last Admin: 08/01/18 00:45 Dose: 0.5 mg Lorazepam (Ativan) 1 mg IVP Q4HR PRN; Protocol PRN Reason: Agitation Stop: 09/30/18 04:30 Last Admin: 08/01/18 05:06 Dose: 1 mg Magnesium Hydroxide (Milk Of Magnesia) 30 ml PO DAILY PRN PRN Reason: Constipation Stop: 09/28/18 16:40 Memantine (Namenda) 5 mg PO DAILY [facility] Stop: 09/29/18 08:59 Last Admin: 08/04/18 10:16 Dose: 5 mg Miscellaneous (Probiotic Screen) 1 [facility] PRN PRN PRN Reason: PROTOCOL Stop: 09/30/18 14:08 Miscellaneous (Vancomycin Iv Per Pharmacy) 1 ea PRN [facility] Stop: 09/30/18 14:44 Thiamine HCl (Vitamin B1) 200 mg PO DAILY [facility] Stop: 09/29/18 08:59 Last Admin: 08/04/18 10:15 Dose: 200 mg Vitamin B Complex/Vit C/Folic Acid (Vitamin B Complex W/Vitamin C) 1 tab PO DAILY [facility] Stop: 09/27/18 08:59 Last Admin: 08/04/18 10:15 Dose: 1 tab General: weak, edematous HEENT: NC/AT, PERRLA Neck: Supple, No JVD Lungs: CTAB, ronchi, other (sob) Cardiovascular: Normal S1 Abdomen: soft Extremities: edema, other (Generalized edema) Internal Medicine Assmt/Plan - Assessment Assessment: Respiratory failure Pneumonia Sepsis Chronic Copd Leukocytosis Hypertension Mild CHF Dementia Anemia Severe Protein Calorie Malnutrition Schizophrenia PVD Dermatitis Past Alcohol Dependence Acute Diastolic dysfunction - Plan Plan: Continue to monitor closely Monitor labs, Chest x-ray Continue present antibiotics and meds as directed Monitor Intake/Output daily Monitor Os Supplemental Oxygen Supportive care Nebulizer treatments and pulmonary support 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 Monitor Mental health status Continue present care management Nutritional Asmnt/Malnutr-PDOC - Dietary Evaluation Malnutrition Findings (Please click <Entered> for more info): Nutritional Asmnt/Malnutrition Start: 08/01/18 17: 20 Text: Status: Complete Freq: Protocol: Document 08/01/18 17:20 [email or web address] (Rec: 08/01/18 17:27 [email or web address]) Nutritional Asmnt/Malnutrition Patient General Information Nutritional Screening Moderate Risk Diagnosis anasarca Pertinent Medical Hx/Surgical Hx CHF, HTN, dementia, anemia Subjective Information Pt seen sitting up in bed having lunch, able to eat by himself. Per EMR, PO intake 90 -100%. Current Diet Order/ Nutrition Support low sodium, CAMRON, mech soft chinely chopped Pertinent Medications vit C, iron, folate, lasix, synthroid, vancomycin, piperacillin, vit B1, vit B complex with vit C and folic acid Pertinent Labs 08/01 Na 134, BUN 32, Glucose 149, Ca 8.5, Alb 2.1 Nutritional Hx/Data Height 1.8 m Height (Calculated Centimeters) 180.3 Current Weight (lbs) 99.337 kg Weight (Calculated Kilograms) 99.3 Weight (Calculated Grams) 22829.7 [place] Body Weight 172 Body Mass Index (BMI) 30.5 Weight Status Obese GI Symptoms GI Symptoms None Last BM 07/31 Difficult in: None Skin Integrity/Comment: intact, dryness Current %PO Good (75-100%) Estimated Nutritional Goals BEE in Kcals: Adj wt of IBW Calories/Kcals/Kg 23-27 Kcals Calculated 2820-9022 Protein: Adj wt of IBW Protein g/k.8-1 Protein Calculated 66-83 Fluid: ml 1909-2241ml (1ml/kcal) Nutritional Problem No current Nutrition Prob Problem N/A Intervention/Recommendation Comments 1. Continue with low sodium CAMRON, mech soft finely chopped diet as ordered. 2. Monitor PO intake, wt, labs and skin integrity 3. F/U as low risk in 7 days Expected Outcomes/Goals Expected Outcomes/Goals 1. PO intake to meet at least 75% of nutritional needs. 2. Wt stability, skin to remain intact, labs to approach WNL.
--- NOTE | 2018-08-04 12:18 | General Progress Note ---
Subjective - Review of Systems Service Date: 08/04/18 Subjective: Patient still complained of swelling in the legs or shortness of breath Blood cultures positive for gram-positive clusters Patient passed swallowing Objective - Results Result Diagrams: 08/04/18 05:50 08/04/18 05:50 Recent Labs: Laboratory Last Values WBC 18.8 Th/cmm (4.8-10.8) H 08/04/18 05:50 RBC 4.48 Mil/cmm (3.80-5.80) 08/04/18 05:50 Hgb 12.5 gm/dL (12-16) 08/04/18 05:50 Hct 37.9 % (41.0-60) L 08/04/18 05:50 MCV 84.8 fl (80-99) 08/04/18 05:50 MCH 28.0 pg (27.0-31.0) 08/04/18 05:50 MCHC Differential 33.0 pg (28.0-36.0) 08/04/18 05:50 RDW 15.2 % (11.5-20.0) 08/04/18 05:50 Plt Count 268 Th/cmm (150-400) 08/04/18 05:50 MPV 6.8 fl 08/04/18 05:50 Add Manual Diff YES 08/03/18 08:30 Neutrophils % 83.6 % (40.0-80.0) H 08/04/18 05:50 Band Neutrophils % 1 % (0-10) 08/03/18 08:30 Lymphocytes % 8.7 % (20.0-50.0) L 08/04/18 05:50 Monocytes % 6.8 % (2.0-10.0) 08/04/18 05:50 Eosinophils % 0.8 % (0.0-5.0) 08/04/18 05:50 Basophils % 0.1 % (0.0-2.0) 08/04/18 05:50 Neutrophils (Manual) 88 % (40-80) H 08/03/18 08:30 Lymphocytes 8 % (20-50) L 08/03/18 08:30 Monocytes 2 % (2-10) 08/03/18 08:30 Eosinophils 1 % (0-5) 08/03/18 08:30 Basophils 0 % (0-3) 08/03/18 08:30 Platelet Estimate ADEQUATE (NORMAL) 07/31/18 05:04 Sodium 141 mEq/L (136-145) 08/04/18 05:50 Potassium 3.5 mEq/L (3.5-5.1) 08/04/18 05:50 Chloride 110 mEq/L (98-107) H 08/04/18 05:50 Carbon Dioxide 24.2 mEq/L (21.0-31.0) 08/04/18 05:50 Anion Gap 10.3 (7.0-16.0) 08/04/18 05:50 BUN 22 mg/dL (7-25) 08/04/18 05:50 Creatinine 1.0 mg/dL (0.7-1.3) 08/04/18 05:50 Est GFR ( Amer) TNP 08/04/18 05:50 Est GFR (Non-Af Amer) TNP 08/04/18 05:50 BUN/Creatinine Ratio 22.0 08/04/18 05:50 Glucose 113 mg/dL (70-105) H 08/04/18 05:50 Whole Bld Lactic Acid 1.95 mmol/L (0.60-1.99) 08/01/18 14:30 Calcium 7.9 mg/dL (8.6-10.3) L 08/04/18 05:50 Total Bilirubin 0.3 mg/dL (0.3-1.0) 08/04/18 05:50 AST 13 U/L (13-39) 08/04/18 05:50 ALT 16 U/L (7-52) 08/04/18 05:50 Alkaline Phosphatase 119 U/L (34-104) H 08/04/18 05:50 Creatine Kinase 246 U/L (30-223) H 07/29/18 04:15 CK-MB (CK-2) 11.1 ng/mL (0.6-6.3) H 07/29/18 04:15 Troponin I 0.02 ng/mL (0.01-0.05) 07/29/18 04:15 B-Natriuretic Peptide 304.0 pg/mL (5.0-100.0) H 07/31/18 05:04 Total Protein 4.9 gm/dL (6.0-8.3) L 08/04/18 05:50 Albumin 1.9 gm/dL (4.2-5.5) L 08/04/18 05:50 Globulin 3.0 gm/dL 08/04/18 05:50 Albumin/Globulin Ratio 0.6 (1.0-1.8) L 08/04/18 05:50 Urine Source SIMS PORT 08/01/18 15:20 Urine Color YELLOW 08/01/18 15:20 Urine Clarity TURBID (CLEAR) 08/01/18 15:20 Urine pH 6.0 (4.6 - 8.0) 08/01/18 15:20 Ur Specific [place] 1.020 (1.005-1.030) 08/01/18 15:20 Urine Protein >=300 mg/dL (NEGATIVE) 08/01/18 15:20 Urine Glucose (UA) NEGATIVE mg/dL (NEGATIVE) 08/01/18 15:20 Urine Ketones NEGATIVE mg/dL (NEGATIVE) 08/01/18 15:20 Urine Blood LARGE (NEGATIVE) H 08/01/18 15:20 Urine Nitrate NEGATIVE (NEGATIVE) 08/01/18 15:20 Urine Bilirubin NEGATIVE (NEGATIVE) 08/01/18 15:20 Urine Urobilinogen 0.2 E.U./dL (0.2 - 1.0) 08/01/18 15:20 Ur Leukocyte Esterase NEGATIVE (NEGATIVE) 08/01/18 15:20 Urine RBC 2-5 /hpf (0-5) H 08/01/18 15:20 Urine WBC 10-25 /hpf (0-5) H 08/01/18 15:20 Ur Epithelial Cells NONE SEEN /lpf (FEW) 08/01/18 15:20 Urine Bacteria MANY /hpf (NONE SEEN) H 08/01/18 15:20 Vancomycin Trough 20.0 ug/mL (5-10) H 08/03/18 00:53 - Physical Exam Vitals and I&O: Vital Signs Temp 97.9 F 08/04/18 11:57 Pulse 89 08/04/18 11:57 Resp 19 08/04/18 11:57 BP 151/73 08/04/18 11:57 Pulse Ox 95 08/04/18 11:57 Intake & Output 08/03/18 08/04/18 08/04/18 18:59 06:59 18:59 Intake Total 350 930 Output Total 4725 1300 Balance -4375 -370 Weight (lbs) 88.405 kg 88.405 kg Intake: Intake, IV Amount 350 450 Piperacillin Sodium/ 100 200 Tazobact 4.5 gm In Sodium Chloride 0.9% 100 ml @ 100 mls/hr IV Q8HR [facility] Rx #:[id number] Vancomycin HCl 1 gm In 250 250 Sodium Chloride 0.9% 250 ml @ 165 mls/hr IV Q12HR@ 0200,1400 [facility] Rx#: [id number] Oral 480 Output: Urine 4725 1300 Other: # Bowel Movements 0 2 Stool Characteristics Soft Soft Formed Liquid Black Black Weight Source Bedscale Bedscale Active Medications: Current Medications Acetaminophen (Tylenol) 325 mg PO Q4HR PRN PRN Reason: Pain or Fever >101 Stop: 09/27/18 07:42 Last Admin: 08/01/18 11:15 Dose: 325 mg Albuterol Sulfate (Albuterol 2.5mg/3ml Neb Ud) 2.5 mg HHN Q4H PRN PRN Reason: Congestion Stop: 09/27/18 07:59 Last Admin: 08/01/18 09:50 Dose: 2.5 mg Amlodipine Besylate (Norvasc) 2.5 mg PO DAILY [facility] Stop: 09/27/18 08:59 Last Admin: 08/04/18 10:16 Dose: 2.5 mg Ascorbic Acid (Vitamin C) 250 mg PO QPM [facility] Stop: 09/27/18 16:59 Last Admin: 08/03/18 16:39 Dose: 250 mg Aspirin (Ecotrin) 81 mg PO QPM [facility] Stop: 09/27/18 16:59 Last Admin: 08/03/18 16:39 Dose: 81 mg Bisacodyl (Dulcolax 10 Mg Supp) 10 mg RC DAILY PRN PRN Reason: Constipation Stop: 09/27/18 07:42 Calcium Carbonate (Tums) 500 mg PO Q4HR PRN PRN Reason: Indigestion Stop: 09/27/18 07:42 Diphenhydramine HCl (Benadryl) 50 mg PO HS PRN PRN Reason: Insomnia Stop: 09/27/18 07:42 Last Admin: 08/01/18 02:23 Dose: 50 mg Donepezil HCl (Aricept) 5 mg PO QPM [facility] Stop: 09/27/18 16:59 Last Admin: 08/03/18 16:39 Dose: 5 mg Enoxaparin Sodium (Lovenox) 40 mg SUBQ Q12HR [facility] Stop: 09/27/18 20:59 Last Admin: 08/04/18 10:17 Dose: 40 mg Ferrous Sulfate (Iron) 325 mg PO DAILY [facility] Stop: 09/27/18 08:59 Last Admin: 08/04/18 10:16 Dose: 325 mg Folic Acid (Folate) 2 mg PO DAILY [facility] Stop: 09/27/18 08:59 Last Admin: 08/04/18 10:16 Dose: 2 mg Furosemide (Lasix) 40 mg IVP BID [facility] Stop: 10/03/18 08:59 Last Admin: 08/04/18 09:18 Dose: 40 mg Guaifenesin/Dextromethorphan (Robitussin Dm) 10 ml PO Q4H PRN PRN Reason: Cough Stop: 09/27/18 07:44 Last Admin: 08/01/18 09:56 Dose: 10 ml Haloperidol Lactate (Haldol) 0.5 mg PO TID [facility] Stop: 09/27/18 08:59 Last Admin: 08/04/18 10:18 Dose: 0.5 mg Piperacillin Sod/Tazobactam (Sod 4.5 gm/ Sodium Chloride) 100 mls @ 100 mls/hr IV Q8HR [facility] Stop: 09/30/18 14:59 Last Infusion: 08/04/18 05:40 Dose: Infused Vancomycin HCl 1 gm/ Sodium (Chloride) 250 mls @ 165 mls/hr IV Q12HR@0200,1400 [facility] Stop: 10/02/18 13:59 Last Infusion: 08/04/18 03:02 Dose: Infused Levothyroxine Sodium (Synthroid) 0.05 mg PO DAILY [facility] Stop: 09/27/18 08:59 Last Admin: 08/04/18 10:15 Dose: 0.05 mg Lisinopril (Zestril) 20 mg PO DAILY [facility] Stop: 09/27/18 08:59 Last Admin: 08/04/18 10:17 Dose: 20 mg Lorazepam (Ativan) 0.5 mg PO Q6HR PRN; Protocol PRN Reason: Anxiety Stop: 09/28/18 16:40 Last Admin: 08/01/18 00:45 Dose: 0.5 mg Lorazepam (Ativan) 1 mg IVP Q4HR PRN; Protocol PRN Reason: Agitation Stop: 09/30/18 04:30 Last Admin: 08/01/18 05:06 Dose: 1 mg Magnesium Hydroxide (Milk Of Magnesia) 30 ml PO DAILY PRN PRN Reason: Constipation Stop: 09/28/18 16:40 Memantine (Namenda) 5 mg PO DAILY [facility] Stop: 09/29/18 08:59 Last Admin: 08/04/18 10:16 Dose: 5 mg Miscellaneous (Probiotic Screen) 1 [facility] PRN PRN PRN Reason: PROTOCOL Stop: 09/30/18 14:08 Miscellaneous (Vancomycin Iv Per Pharmacy) 1 [facility] PRN [facility] Stop: 09/30/18 14:44 Thiamine HCl (Vitamin B1) 200 mg PO DAILY [facility] Stop: 09/29/18 08:59 Last Admin: 08/04/18 10:15 Dose: 200 mg Vitamin B Complex/Vit C/Folic Acid (Vitamin B Complex W/Vitamin C) 1 tab PO DAILY [facility] Stop: 09/27/18 08:59 Last Admin: 08/04/18 10:15 Dose: 1 tab General: No acute distress HEENT: Other (normal) Neck: Supple, JVD, +2 carotid pulse wo bruit Cardiovascular: Regular rate, Normal S1, Normal S2, Systolic murmurs Lungs: Clear to auscultation, Normal air movement Abdomen: Bowel sounds, Soft Extremities: Pulses (normal) Neurological: Strength at 5/5 X4 ext, Cranial nerves 3-12 NL, Reflexes 2+ Assessment/Plan - Assessment Assessment: Congestive heart failure diastolic dysfunction and acute Hypertension Schizophrenia Peripheral vascular disease Alcohol dependence Dermatitis Culture positive" Rule out aspiration pneumonia - Plan Plan: Continue present management repeat BNP level Continue Lasix IV antibiotics Discharge planning Nutritional Asmnt/Malnutr-PDOC - Dietary Evaluation Malnutrition Findings (Please click <Entered> for more info): Nutritional Asmnt/Malnutrition Start: 08/01/18 17: 20 Text: Status: Complete Freq: Protocol: Document 08/01/18 17:20 [facility] (Rec: 08/01/18 17:27 [id number]) Nutritional Asmnt/Malnutrition Patient General Information Nutritional Screening Moderate Risk Diagnosis anasarca Pertinent Medical Hx/Surgical Hx CHF, HTN, dementia, anemia Subjective Information Pt seen sitting up in bed having lunch, able to eat by himself. Per EMR, PO intake 90 -100%. Current Diet Order/ Nutrition Support low sodium, CAMRON, mech soft chinely chopped Pertinent Medications vit C, iron, folate, lasix, synthroid, vancomycin, piperacillin, vit B1, vit B complex with vit C and folic acid Pertinent Labs 08/01 Na 134, BUN 32, Glucose 149, Ca 8.5, Alb 2.1 Nutritional Hx/Data Height 1.8 m Height (Calculated Centimeters) 180.3 Current Weight (lbs) 99.337 kg Weight (Calculated Kilograms) 99.3 Weight (Calculated Grams) 73005.7 [place] Body Weight 172 Body Mass Index (BMI) 30.5 Weight Status Obese GI Symptoms GI Symptoms None Last BM 07/31 Difficult in: None Skin Integrity/Comment: intact, dryness Current %PO Good (75-100%) Estimated Nutritional Goals BEE in Kcals: Adj wt of IBW Calories/Kcals/Kg 23-27 Kcals Calculated 7841-1251 Protein: Adj wt of IBW Protein g/k.8-1 Protein Calculated 66-83 Fluid: ml 1909-2241ml (1ml/kcal) Nutritional Problem No current Nutrition Prob Problem N/A Intervention/Recommendation Comments 1. Continue with low sodium CAMRON, mech soft finely chopped diet as ordered. 2. Monitor PO intake, wt, labs and skin integrity 3. F/U as low risk in 7 days Expected Outcomes/Goals Expected Outcomes/Goals 1. PO intake to meet at least 75% of nutritional needs. 2. Wt stability, skin to remain intact, labs to approach WNL.
--- NOTE | 2018-08-04 12:27 | Infectious Disease Prog Note ---
Infectious Disease Subjective - Review of Systems Service Date: 08/04/18 Subjective: Fever improved. Infectious Disease Objective - Results Result Diagrams: 08/04/18 05:50 08/04/18 05:50 Recent Labs: Laboratory Last Values WBC 18.8 Th/cmm (4.8-10.8) H 08/04/18 05:50 RBC 4.48 Mil/cmm (3.80-5.80) 08/04/18 05:50 Hgb 12.5 gm/dL (12-16) 08/04/18 05:50 Hct 37.9 % (41.0-60) L 08/04/18 05:50 MCV 84.8 fl (80-99) 08/04/18 05:50 MCH 28.0 pg (27.0-31.0) 08/04/18 05:50 MCHC Differential 33.0 pg (28.0-36.0) 08/04/18 05:50 RDW 15.2 % (11.5-20.0) 08/04/18 05:50 Plt Count 268 Th/cmm (150-400) 08/04/18 05:50 MPV 6.8 fl 08/04/18 05:50 Add Manual Diff YES 08/03/18 08:30 Neutrophils % 83.6 % (40.0-80.0) H 08/04/18 05:50 Band Neutrophils % 1 % (0-10) 08/03/18 08:30 Lymphocytes % 8.7 % (20.0-50.0) L 08/04/18 05:50 Monocytes % 6.8 % (2.0-10.0) 08/04/18 05:50 Eosinophils % 0.8 % (0.0-5.0) 08/04/18 05:50 Basophils % 0.1 % (0.0-2.0) 08/04/18 05:50 Neutrophils (Manual) 88 % (40-80) H 08/03/18 08:30 Lymphocytes 8 % (20-50) L 08/03/18 08:30 Monocytes 2 % (2-10) 08/03/18 08:30 Eosinophils 1 % (0-5) 08/03/18 08:30 Basophils 0 % (0-3) 08/03/18 08:30 Platelet Estimate ADEQUATE (NORMAL) 07/31/18 05:04 Sodium 141 mEq/L (136-145) 08/04/18 05:50 Potassium 3.5 mEq/L (3.5-5.1) 08/04/18 05:50 Chloride 110 mEq/L (98-107) H 08/04/18 05:50 Carbon Dioxide 24.2 mEq/L (21.0-31.0) 08/04/18 05:50 Anion Gap 10.3 (7.0-16.0) 08/04/18 05:50 BUN 22 mg/dL (7-25) 08/04/18 05:50 Creatinine 1.0 mg/dL (0.7-1.3) 08/04/18 05:50 Est GFR ( Amer) TNP 08/04/18 05:50 Est GFR (Non-Af Amer) TNP 08/04/18 05:50 BUN/Creatinine Ratio 22.0 08/04/18 05:50 Glucose 113 mg/dL (70-105) H 08/04/18 05:50 Whole Bld Lactic Acid 1.95 mmol/L (0.60-1.99) 08/01/18 14:30 Calcium 7.9 mg/dL (8.6-10.3) L 08/04/18 05:50 Total Bilirubin 0.3 mg/dL (0.3-1.0) 08/04/18 05:50 AST 13 U/L (13-39) 08/04/18 05:50 ALT 16 U/L (7-52) 08/04/18 05:50 Alkaline Phosphatase 119 U/L (34-104) H 08/04/18 05:50 Creatine Kinase 246 U/L (30-223) H 07/29/18 04:15 CK-MB (CK-2) 11.1 ng/mL (0.6-6.3) H 07/29/18 04:15 Troponin I 0.02 ng/mL (0.01-0.05) 07/29/18 04:15 B-Natriuretic Peptide 304.0 pg/mL (5.0-100.0) H 07/31/18 05:04 Total Protein 4.9 gm/dL (6.0-8.3) L 08/04/18 05:50 Albumin 1.9 gm/dL (4.2-5.5) L 08/04/18 05:50 Globulin 3.0 gm/dL 08/04/18 05:50 Albumin/Globulin Ratio 0.6 (1.0-1.8) L 08/04/18 05:50 Urine Source SIMS PORT 08/01/18 15:20 Urine Color YELLOW 08/01/18 15:20 Urine Clarity TURBID (CLEAR) 08/01/18 15:20 Urine pH 6.0 (4.6 - 8.0) 08/01/18 15:20 Ur Specific [place] 1.020 (1.005-1.030) 08/01/18 15:20 Urine Protein >=300 mg/dL (NEGATIVE) 08/01/18 15:20 Urine Glucose (UA) NEGATIVE mg/dL (NEGATIVE) 08/01/18 15:20 Urine Ketones NEGATIVE mg/dL (NEGATIVE) 08/01/18 15:20 Urine Blood LARGE (NEGATIVE) H 08/01/18 15:20 Urine Nitrate NEGATIVE (NEGATIVE) 08/01/18 15:20 Urine Bilirubin NEGATIVE (NEGATIVE) 08/01/18 15:20 Urine Urobilinogen 0.2 E.U./dL (0.2 - 1.0) 08/01/18 15:20 Ur Leukocyte Esterase NEGATIVE (NEGATIVE) 08/01/18 15:20 Urine RBC 2-5 /hpf (0-5) H 08/01/18 15:20 Urine WBC 10-25 /hpf (0-5) H 08/01/18 15:20 Ur Epithelial Cells NONE SEEN /lpf (FEW) 08/01/18 15:20 Urine Bacteria MANY /hpf (NONE SEEN) H 08/01/18 15:20 Vancomycin Trough 20.0 ug/mL (5-10) H 08/03/18 00:53 - Physical Exam Vitals and I&O: Vital Signs Temp 97.9 F 08/04/18 11:57 Pulse 89 08/04/18 11:57 Resp 19 08/04/18 11:57 BP 151/73 08/04/18 11:57 Pulse Ox 95 08/04/18 11:57 Intake & Output 08/03/18 08/04/18 08/04/18 18:59 06:59 18:59 Intake Total 350 930 Output Total 4703 1300 Balance -4375 -370 Weight (lbs) 88.405 kg 88.405 kg Intake: Intake, IV Amount 350 450 Piperacillin Sodium/ 100 200 Tazobact 4.5 gm In Sodium Chloride 0.9% 100 ml @ 100 mls/hr IV Q8HR [facility] Rx #:[id number] Vancomycin HCl 1 gm In 250 250 Sodium Chloride 0.9% 250 ml @ 165 mls/hr IV Q12HR@ 0200,1400 [facility] Rx#: [id number] Oral 480 Output: Urine 4725 1300 Other: # Bowel Movements 0 2 Stool Characteristics Soft Soft Formed Liquid Black Black Weight Source Bedscale Bedscale Active Medications: Current Medications Acetaminophen (Tylenol) 325 mg PO Q4HR PRN PRN Reason: Pain or Fever >101 Stop: 09/27/18 07:42 Last Admin: 08/01/18 11:15 Dose: 325 mg Albuterol Sulfate (Albuterol 2.5mg/3ml Neb Ud) 2.5 mg HHN Q4H PRN PRN Reason: Congestion Stop: 09/27/18 07:59 Last Admin: 08/01/18 09:50 Dose: 2.5 mg Amlodipine Besylate (Norvasc) 2.5 mg PO DAILY [facility] Stop: 09/27/18 08:59 Last Admin: 08/04/18 10:16 Dose: 2.5 mg Ascorbic Acid (Vitamin C) 250 mg PO QPM [facility] Stop: 09/27/18 16:59 Last Admin: 08/03/18 16:39 Dose: 250 mg Aspirin (Ecotrin) 81 mg PO QPM [facility] Stop: 09/27/18 16:59 Last Admin: 08/03/18 16:39 Dose: 81 mg Bisacodyl (Dulcolax 10 Mg Supp) 10 mg RC DAILY PRN PRN Reason: Constipation Stop: 09/27/18 07:42 Calcium Carbonate (Tums) 500 mg PO Q4HR PRN PRN Reason: Indigestion Stop: 09/27/18 07:42 Diphenhydramine HCl (Benadryl) 50 mg PO HS PRN PRN Reason: Insomnia Stop: 09/27/18 07:42 Last Admin: 08/01/18 02:23 Dose: 50 mg Donepezil HCl (Aricept) 5 mg PO QPM [facility] Stop: 09/27/18 16:59 Last Admin: 08/03/18 16:39 Dose: 5 mg Enoxaparin Sodium (Lovenox) 40 mg SUBQ Q12HR [facility] Stop: 09/27/18 20:59 Last Admin: 08/04/18 10:17 Dose: 40 mg Ferrous Sulfate (Iron) 325 mg PO DAILY [facility] Stop: 09/27/18 08:59 Last Admin: 08/04/18 10:16 Dose: 325 mg Folic Acid (Folate) 2 mg PO DAILY [facility] Stop: 09/27/18 08:59 Last Admin: 08/04/18 10:16 Dose: 2 mg Furosemide (Lasix) 40 mg IVP BID [facility] Stop: 10/03/18 08:59 Last Admin: 08/04/18 09:18 Dose: 40 mg Guaifenesin/Dextromethorphan (Robitussin Dm) 10 ml PO Q4H PRN PRN Reason: Cough Stop: 09/27/18 07:44 Last Admin: 08/01/18 09:56 Dose: 10 ml Haloperidol Lactate (Haldol) 0.5 mg PO TID [facility] Stop: 09/27/18 08:59 Last Admin: 08/04/18 10:18 Dose: 0.5 mg Piperacillin Sod/Tazobactam (Sod 4.5 gm/ Sodium Chloride) 100 mls @ 100 mls/hr IV Q8HR [facility] Stop: 09/30/18 14:59 Last Infusion: 08/04/18 05:40 Dose: Infused Vancomycin HCl 1 gm/ Sodium (Chloride) 250 mls @ 165 mls/hr IV Q12HR@0200,1400 [facility] Stop: 10/02/18 13:59 Last Infusion: 08/04/18 03:02 Dose: Infused Levothyroxine Sodium (Synthroid) 0.05 mg PO DAILY [facility] Stop: 09/27/18 08:59 Last Admin: 08/04/18 10:15 Dose: 0.05 mg Lisinopril (Zestril) 20 mg PO DAILY [facility] Stop: 09/27/18 08:59 Last Admin: 08/04/18 10:17 Dose: 20 mg Lorazepam (Ativan) 0.5 mg PO Q6HR PRN; Protocol PRN Reason: Anxiety Stop: 09/28/18 16:40 Last Admin: 08/01/18 00:45 Dose: 0.5 mg Lorazepam (Ativan) 1 mg IVP Q4HR PRN; Protocol PRN Reason: Agitation Stop: 09/30/18 04:30 Last Admin: 08/01/18 05:06 Dose: 1 mg Magnesium Hydroxide (Milk Of Magnesia) 30 ml PO DAILY PRN PRN Reason: Constipation Stop: 09/28/18 16:40 Memantine (Namenda) 5 mg PO DAILY [facility] Stop: 09/29/18 08:59 Last Admin: 08/04/18 10:16 Dose: 5 mg Miscellaneous (Probiotic Screen) 1 ea PRN PRN PRN Reason: PROTOCOL Stop: 09/30/18 14:08 Miscellaneous (Vancomycin Iv Per Pharmacy) 1 ea PRN [facility] Stop: 09/30/18 14:44 Thiamine HCl (Vitamin B1) 200 mg PO DAILY [facility] Stop: 09/29/18 08:59 Last Admin: 08/04/18 10:15 Dose: 200 mg Vitamin B Complex/Vit C/Folic Acid (Vitamin B Complex W/Vitamin C) 1 tab PO DAILY [facility] Stop: 09/27/18 08:59 Last Admin: 08/04/18 10:15 Dose: 1 tab General: no acute distress, well developed, well nourished HEENT: atraumatic, normocephalic, PERRLA, EOMI Neck: supple, no thyromegaly Cardiovascular: S1S2, regular Lungs: clear to auscultation bilaterally, clear to percussion Abdomen: soft, no tender, no distended, no mass, no hepatomegaly Extremities: edema, no cyanosis, no clubbing Neurological: awake, alert, oriented Skin: intact Infectious Disease Assmt/Plan - Assessment Assessment: 1. Sepsis. staphylococcus sepsis, Staph aureus. 2. Pneumonia. 3. COPD. 4. CHF. 5. HTN. 6. Dementia. 7. Anemia of cd. - Plan Plan: Continue vanco IV and Zosyn. Sepsis w/u. Increase lasix to 40mg IV bid. Not ready for discharge. Nutritional Asmnt/Malnutr-PDOC - Dietary Evaluation Malnutrition Findings (Please click <Entered> for more info): Nutritional Asmnt/Malnutrition Start: 08/01/18 17: 20 Text: Status: Complete Freq: Protocol: Document 08/01/18 17:20 RAOULG (Rec: 08/01/18 17:27 LCHENG [email or web address]) Nutritional Asmnt/Malnutrition Patient General Information Nutritional Screening Moderate Risk Diagnosis anasarca Pertinent Medical Hx/Surgical Hx CHF, HTN, dementia, anemia Subjective Information Pt seen sitting up in bed having lunch, able to eat by himself. Per EMR, PO intake 90 -100%. Current Diet Order/ Nutrition Support low sodium, CAMRON, mech soft chinely chopped Pertinent Medications vit C, iron, folate, lasix, synthroid, vancomycin, piperacillin, vit B1, vit B complex with vit C and folic acid Pertinent Labs 08/01 Na 134, BUN 32, Glucose 149, Ca 8.5, Alb 2.1 Nutritional Hx/Data Height 1.8 m Height (Calculated Centimeters) 180.3 Current Weight (lbs) 99.337 kg Weight (Calculated Kilograms) 99.3 Weight (Calculated Grams) 47111.7 [place] Body Weight 172 Body Mass Index (BMI) 30.5 Weight Status Obese GI Symptoms GI Symptoms None Last BM 07/31 Difficult in: None Skin Integrity/Comment: intact, dryness Current %PO Good (75-100%) Estimated Nutritional Goals BEE in Kcals: Adj wt of IBW Calories/Kcals/Kg 23-27 Kcals Calculated 5370-3913 Protein: Adj wt of IBW Protein g/k.8-1 Protein Calculated 66-83 Fluid: ml 1909-2241ml (1ml/kcal) Nutritional Problem No current Nutrition Prob Problem N/A Intervention/Recommendation Comments 1. Continue with low sodium CAMRON, mech soft finely chopped diet as ordered. 2. Monitor PO intake, wt, labs and skin integrity 3. F/U as low risk in 7 days Expected Outcomes/Goals Expected Outcomes/Goals 1. PO intake to meet at least 75% of nutritional needs. 2. Wt stability, skin to remain intact, labs to approach WNL.
[2018-08-05 04:57] LABS: % BASOPHILS 3.2 % (0.0-2.0); % EOSINOPHILS 3.8 % (0.0-5.0); % LYMPHOCYTES 15.4 % (20.0-50.0); % MONOCYTES 9.3 % (2.0-10.0); % NEUTROPHILS 68.3 % (40.0-80.0); BASOPHILE ABSOLUTE 0.4 Th/cumm (0-0.2); EOSINOPHILE ABSOLUTE 0.4 Th/cmm (0.1-0.4); HEMATOCRIT 35.3 % (41.0-60); HEMOGLOBIN 11.9 gm/dL (12-16); LYMPHOCYTE ABSOLUTE 1.7 Th/cmm (1.5-3.0); MEAN CELL VOLUME 84.2 fl (80-99); MEAN CORPUSCULAR HEMOGLOBIN 28.4 pg (27.0-31.0); MEAN CORPUSCULAR HGB CONC 33.8 pg (28.0-36.0); MEAN PLATELET VOLUME 6.1 fl; MONOCYTE ABSOLUTE 1.1 Th/cmm (0.3-1.0); NEUTROPHILE ABSOLUTE 7.7 Th/cmm (1.8-8.0); PLATELET COUNT 271 Th/cmm (150-400); RED BLOOD COUNT 4.19 Mil/cmm (3.80-5.80); RED CELL DISTRIBUTION WIDTH 14.9 % (11.5-20.0)
[2018-08-05 05:03] LABS: WHITE BLOOD COUNT 11.3 Th/cmm (4.8-10.8)
[2018-08-05 05:25] LABS: ALB/GLOB RATIO 0.6 (1.0-1.8); ALBUMIN 1.8 gm/dL (4.2-5.5); ALKALINE PHOSPHATASE 110 U/L (34-104); ANION GAP 9.6 (7.0-16.0); BILIRUBIN,TOTAL 0.3 mg/dL (0.3-1.0); BUN - UREA NITROGEN 18 mg/dL (7-25); CALCIUM SERUM 7.5 mg/dL (8.6-10.3); CARBON DIOXIDE 26.5 mEq/L (21.0-31.0); CHLORIDE 105 mEq/L (98-107); CREATININE - SERUM 1.1 mg/dL (0.7-1.3); GLUCOSE 111 mg/dL (70-105); POTASSIUM SERUM 3.1 mEq/L (3.5-5.1); SGOT 13 U/L (13-39); SGPT/ALT 14 U/L (7-52); SODIUM SERUM 138 mEq/L (136-145); TOTAL PROTEIN,SERUM 4.6 gm/dL (6.0-8.3)
[2018-08-05] MEDS: Enoxaparin 40 mg/0.4 mL 0.4mL Syr SUBQ SCH (08:41)
[2018-08-05] MEDS: Vitamin B Complex w/Vitamin C Tab PO SCH (08:42)
[2018-08-05] MEDS: Ferrous Sulfate 325 MG TAB PO SCH (08:43)
[2018-08-05] MEDS: Multivitamin w/ Minerals Tab PO SCH (08:43)
[2018-08-05] MEDS: Levothyroxine 0.05 Mg Tab PO SCH (08:44)
[2018-08-05] MEDS: Haloperidol Lactate Oral sol. 2 mg/mL Udc PO SCH ×2 (08:46→13:45)
--- NOTE | 2018-08-05 08:54 | Diagnostic Imaging Report ---
CHEST X-RAY: AP view INDICATION: Shortness of breath COMPARISON: 08/03/2018 FINDINGS: COPD lung changes are noted. Small bilateral effusions are noted. There are multiple old left rib fractures. Heart size within normal limits. Tortuous aorta is noted. IMPRESSION Small bilateral effusions. Pneumonia of the lung bases cannot be excluded. COPD lung changes.
[2018-08-05] MEDS ORDERED: Potassium Chloride 20 mEq ER Tab PO ONE (09:27)
[2018-08-05] MEDS ORDERED: Lactobacillus Rhamnosus GG 15 Billion CFU CAP.SPRINK PO SCH (10:30)
--- NOTE | 2018-08-05 11:07 | Progress Notes ---
DATE: 08/04/2018 PULMONARY PROGRESS NOTE SUBJECTIVE: The patient appears to be doing okay, in no distress. OBJECTIVE: VITAL SIGNS: Temperature 98.1, pulse 69, respiration 19, blood pressure 143/59, and saturation 98%. CHEST: Good breath sounds. No wheezing, no crackles. HEART: Regular rate and rhythm. No murmurs. ABDOMEN: Soft, nontender. EXTREMITIES: No edema. LABORATORY DATA: WBC 18.8, platelets of 268. Sodium 141, potassium 3.5, BUN 22, creatinine 1.0. IMPRESSION: 1. Respiratory failure. 2. Pneumonia. 3. Dysphagia. 4. leukocytosis. 6. Weakness. 7. Chronic obstructive pulmonary disease. PLAN: 1. Continue nebulizer treatment. 2. Antibiotics. 3. Follow up chest x-ray and supportive care. JOB# [id number] MTDNicole
--- NOTE | 2018-08-05 11:57 | General Progress Note ---
Subjective - Review of Systems Service Date: 08/05/18 Subjective: Patient still complained of swelling in the legs or shortness of breath Blood cultures positive for gram-positive clusters Patient passed swallowing Objective - Results Result Diagrams: 08/05/18 04:45 08/05/18 04:45 Recent Labs: Laboratory Last Values WBC 11.3 Th/cmm (4.8-10.8) H D 08/05/18 04:45 RBC 4.19 Mil/cmm (3.80-5.80) 08/05/18 04:45 Hgb 11.9 gm/dL (12-16) L 08/05/18 04:45 Hct 35.3 % (41.0-60) L 08/05/18 04:45 MCV 84.2 fl (80-99) 08/05/18 04:45 MCH 28.4 pg (27.0-31.0) 08/05/18 04:45 MCHC Differential 33.8 pg (28.0-36.0) 08/05/18 04:45 RDW 14.9 % (11.5-20.0) 08/05/18 04:45 Plt Count 271 Th/cmm (150-400) 08/05/18 04:45 MPV 6.1 fl 08/05/18 04:45 Add Manual Diff YES 08/03/18 08:30 Neutrophils % 68.3 % (40.0-80.0) 08/05/18 04:45 Band Neutrophils % 1 % (0-10) 08/03/18 08:30 Lymphocytes % 15.4 % (20.0-50.0) L 08/05/18 04:45 Monocytes % 9.3 % (2.0-10.0) 08/05/18 04:45 Eosinophils % 3.8 % (0.0-5.0) 08/05/18 04:45 Basophils % 3.2 % (0.0-2.0) H 08/05/18 04:45 Neutrophils (Manual) 88 % (40-80) H 08/03/18 08:30 Lymphocytes 8 % (20-50) L 08/03/18 08:30 Monocytes 2 % (2-10) 08/03/18 08:30 Eosinophils 1 % (0-5) 08/03/18 08:30 Basophils 0 % (0-3) 08/03/18 08:30 Platelet Estimate ADEQUATE (NORMAL) 07/31/18 05:04 Sodium 138 mEq/L (136-145) 08/05/18 04:45 Potassium 3.1 mEq/L (3.5-5.1) L 08/05/18 04:45 Chloride 105 mEq/L (98-107) 08/05/18 04:45 Carbon Dioxide 26.5 mEq/L (21.0-31.0) 08/05/18 04:45 Anion Gap 9.6 (7.0-16.0) 08/05/18 04:45 BUN 18 mg/dL (7-25) 08/05/18 04:45 Creatinine 1.1 mg/dL (0.7-1.3) 08/05/18 04:45 Est GFR ( Amer) TNP 08/05/18 04:45 Est GFR (Non-Af Amer) TNP 08/05/18 04:45 BUN/Creatinine Ratio 16.4 08/05/18 04:45 Glucose 111 mg/dL (70-105) H 08/05/18 04:45 Whole Bld Lactic Acid 1.95 mmol/L (0.60-1.99) 08/01/18 14:30 Calcium 7.5 mg/dL (8.6-10.3) L 08/05/18 04:45 Total Bilirubin 0.3 mg/dL (0.3-1.0) 08/05/18 04:45 AST 13 U/L (13-39) 08/05/18 04:45 ALT 14 U/L (7-52) 08/05/18 04:45 Alkaline Phosphatase 110 U/L (34-104) H 08/05/18 04:45 Creatine Kinase 246 U/L (30-223) H 07/29/18 04:15 CK-MB (CK-2) 11.1 ng/mL (0.6-6.3) H 07/29/18 04:15 Troponin I 0.02 ng/mL (0.01-0.05) 07/29/18 04:15 B-Natriuretic Peptide 138.0 pg/mL (5.0-100.0) H 08/05/18 04:45 Total Protein 4.6 gm/dL (6.0-8.3) L 08/05/18 04:45 Albumin 1.8 gm/dL (4.2-5.5) L 08/05/18 04:45 Globulin 2.8 gm/dL 08/05/18 04:45 Albumin/Globulin Ratio 0.6 (1.0-1.8) L 08/05/18 04:45 Urine Source [place] 08/01/18 15:20 Urine Color YELLOW 08/01/18 15:20 Urine Clarity TURBID (CLEAR) 08/01/18 15:20 Urine pH 6.0 (4.6 - 8.0) 08/01/18 15:20 Ur Specific [place] 1.020 (1.005-1.030) 08/01/18 15:20 Urine Protein >=300 mg/dL (NEGATIVE) 08/01/18 15:20 Urine Glucose (UA) NEGATIVE mg/dL (NEGATIVE) 08/01/18 15:20 Urine Ketones NEGATIVE mg/dL (NEGATIVE) 08/01/18 15:20 Urine Blood LARGE (NEGATIVE) H 08/01/18 15:20 Urine Nitrate NEGATIVE (NEGATIVE) 08/01/18 15:20 Urine Bilirubin NEGATIVE (NEGATIVE) 08/01/18 15:20 Urine Urobilinogen 0.2 E.U./dL (0.2 - 1.0) 08/01/18 15:20 Ur Leukocyte Esterase NEGATIVE (NEGATIVE) 08/01/18 15:20 Urine RBC 2-5 /hpf (0-5) H 08/01/18 15:20 Urine WBC 10-25 /hpf (0-5) H 08/01/18 15:20 Ur Epithelial Cells NONE SEEN /lpf (FEW) 08/01/18 15:20 Urine Bacteria MANY /hpf (NONE SEEN) H 08/01/18 15:20 Vancomycin Trough 19.1 ug/mL (5-10) H 08/05/18 01:00 - Physical Exam Vitals and I&O: Vital Signs Temp 98.2 F 08/05/18 08:00 Pulse 73 08/05/18 08:44 Resp 20 08/05/18 08:00 BP 150/90 08/05/18 08:44 Pulse Ox 96 08/05/18 08:00 Intake & Output 08/04/18 08/05/18 08/05/18 18:59 06:59 18:59 Intake Total 350 950 Output Total 2100 Balance 350 -1150 Weight (lbs) 88.224 kg Intake: Intake, IV Amount 350 450 Piperacillin Sodium/ 100 200 Tazobact 4.5 gm In Sodium Chloride 0.9% 100 ml @ 100 mls/hr IV Q8HR [facility] Rx #:[id number] Vancomycin HCl 1 gm In 250 250 Sodium Chloride 0.9% 250 ml @ 165 mls/hr IV Q12HR@ 0200,1400 [facility] Rx#: [id number] Oral 500 Output: Urine 2100 Other: # Bowel Movements 1 Stool Characteristics Soft Soft Liquid Liquid Black Black Weight Source Bedscale Active Medications: Current Medications Acetaminophen (Tylenol) 325 mg PO Q4HR PRN PRN Reason: Pain or Fever >101 Stop: 09/27/18 07:42 Last Admin: 08/01/18 11:15 Dose: 325 mg Albuterol Sulfate (Albuterol 2.5mg/3ml Neb Ud) 2.5 mg HHN Q4H PRN PRN Reason: Congestion Stop: 09/27/18 07:59 Last Admin: 08/01/18 09:50 Dose: 2.5 mg Amlodipine Besylate (Norvasc) 2.5 mg PO DAILY [facility] Stop: 09/27/18 08:59 Last Admin: 08/05/18 08:43 Dose: 2.5 mg Ascorbic Acid (Vitamin C) 250 mg PO QPM [facility] Stop: 09/27/18 16:59 Last Admin: 08/04/18 16:21 Dose: 250 mg Aspirin (Ecotrin) 81 mg PO QPM [facility] Stop: 09/27/18 16:59 Last Admin: 08/04/18 16:21 Dose: 81 mg Bisacodyl (Dulcolax 10 Mg Supp) 10 mg RC DAILY PRN PRN Reason: Constipation Stop: 09/27/18 07:42 Calcium Carbonate (Tums) 500 mg PO Q4HR PRN PRN Reason: Indigestion Stop: 09/27/18 07:42 Diphenhydramine HCl (Benadryl) 50 mg PO HS PRN PRN Reason: Insomnia Stop: 09/27/18 07:42 Last Admin: 08/01/18 02:23 Dose: 50 mg Donepezil HCl (Aricept) 5 mg PO QPM [facility] Stop: 09/27/18 16:59 Last Admin: 08/04/18 18:32 Dose: Not Given Enoxaparin Sodium (Lovenox) 40 mg SUBQ Q12HR [facility] Stop: 09/27/18 20:59 Last Admin: 08/05/18 08:41 Dose: 40 mg Ferrous Sulfate (Iron) 325 mg PO DAILY [facility] Stop: 09/27/18 08:59 Last Admin: 08/05/18 08:43 Dose: 325 mg Folic Acid (Folate) 2 mg PO DAILY [facility] Stop: 09/27/18 08:59 Last Admin: 08/05/18 08:43 Dose: 2 mg Furosemide (Lasix) 40 mg IVP BID [facility] Stop: 10/03/18 08:59 Last Admin: 08/05/18 08:42 Dose: 40 mg Guaifenesin/Dextromethorphan (Robitussin Dm) 10 ml PO Q4H PRN PRN Reason: Cough Stop: 09/27/18 07:44 Last Admin: 08/01/18 09:56 Dose: 10 ml Haloperidol Lactate (Haldol) 0.5 mg PO TID [facility] Stop: 09/27/18 08:59 Last Admin: 08/05/18 08:46 Dose: 0.5 mg Piperacillin Sod/Tazobactam (Sod 4.5 gm/ Sodium Chloride) 100 mls @ 100 mls/hr IV Q8HR [facility] Stop: 09/30/18 14:59 Last Infusion: 08/05/18 06:00 Dose: Infused Vancomycin HCl 1 gm/ Sodium (Chloride) 250 mls @ 165 mls/hr IV Q12HR@0200,1400 [facility] Stop: 10/02/18 13:59 Last Infusion: 08/05/18 02:57 Dose: Infused Lactobacillus Rhamnosus (Culturelle 15b) 1 each PO DAILY [facility] Stop: 10/04/18 10:29 Last Admin: 08/05/18 11:18 Dose: 1 each Levothyroxine Sodium (Synthroid) 0.05 mg PO DAILY [facility] Stop: 09/27/18 08:59 Last Admin: 08/05/18 08:44 Dose: 0.05 mg Lisinopril (Zestril) 20 mg PO DAILY [facility] Stop: 09/27/18 08:59 Last Admin: 08/05/18 08:44 Dose: 20 mg Lorazepam (Ativan) 0.5 mg PO Q6HR PRN; Protocol PRN Reason: Anxiety Stop: 09/28/18 16:40 Last Admin: 08/04/18 16:21 Dose: 0.5 mg Lorazepam (Ativan) 1 mg IVP Q4HR PRN; Protocol PRN Reason: Agitation Stop: 09/30/18 04:30 Last Admin: 08/01/18 05:06 Dose: 1 mg Magnesium Hydroxide (Milk Of Magnesia) 30 ml PO DAILY PRN PRN Reason: Constipation Stop: 09/28/18 16:40 Memantine (Namenda) 5 mg PO DAILY [facility] Stop: 09/29/18 08:59 Last Admin: 08/05/18 08:44 Dose: 5 mg Miscellaneous (Probiotic Screen) 1 ea PRN PRN PRN Reason: PROTOCOL Stop: 09/30/18 14:08 Miscellaneous (Vancomycin Iv Per Pharmacy) 1 ea PRN [facility] Stop: 09/30/18 14:44 Thiamine HCl (Vitamin B1) 200 mg PO DAILY [facility] Stop: 09/29/18 08:59 Last Admin: 08/05/18 08:42 Dose: 200 mg Vitamin B Complex/Vit C/Folic Acid (Vitamin B Complex W/Vitamin C) 1 tab PO DAILY [facility] Stop: 09/27/18 08:59 Last Admin: 08/05/18 08:42 Dose: 1 tab General: No acute distress HEENT: Other (normal) Neck: Supple, JVD, +2 carotid pulse wo bruit Cardiovascular: Regular rate, Normal S1, Normal S2, Systolic murmurs Lungs: Clear to auscultation, Normal air movement Abdomen: Bowel sounds, Soft Extremities: Pulses (normal) Neurological: Strength at 5/5 X4 ext, Cranial nerves 3-12 NL, Reflexes 2+ Assessment/Plan - Assessment Assessment: Congestive heart failure diastolic dysfunction and acute Hypertension Schizophrenia Peripheral vascular disease Alcohol dependence Dermatitis Culture positive" Rule out aspiration pneumonia - Plan Plan: Continue present management repeat BNP level Continue Lasix IV antibiotics Discharge planning Nutritional Asmnt/Malnutr-PDOC - Dietary Evaluation Malnutrition Findings (Please click <Entered> for more info): Nutritional Asmnt/Malnutrition Start: 08/01/18 17: 20 Text: Status: Complete Freq: Protocol: Document 08/01/18 17:20 RAOULG (Rec: 08/01/18 17:27 LCHENG [email or web address]) Nutritional Asmnt/Malnutrition Patient General Information Nutritional Screening Moderate Risk Diagnosis anasarca Pertinent Medical Hx/Surgical Hx CHF, HTN, dementia, anemia Subjective Information Pt seen sitting up in bed having lunch, able to eat by himself. Per EMR, PO intake 90 -100%. Current Diet Order/ Nutrition Support low sodium, CAMRON, mech soft chinely chopped Pertinent Medications vit C, iron, folate, lasix, synthroid, vancomycin, piperacillin, vit B1, vit B complex with vit C and folic acid Pertinent Labs 08/01 Na 134, BUN 32, Glucose 149, Ca 8.5, Alb 2.1 Nutritional Hx/Data Height 1.8 m Height (Calculated Centimeters) 180.3 Current Weight (lbs) 99.337 kg Weight (Calculated Kilograms) 99.3 Weight (Calculated Grams) 27804.7 [place] Body Weight 172 Body Mass Index (BMI) 30.5 Weight Status Obese GI Symptoms GI Symptoms None Last BM 07/31 Difficult in: None Skin Integrity/Comment: intact, dryness Current %PO Good (75-100%) Estimated Nutritional Goals BEE in Kcals: Adj wt of IBW Calories/Kcals/Kg 23-27 Kcals Calculated 6029-0690 Protein: Adj wt of IBW Protein g/k.8-1 Protein Calculated 66-83 Fluid: ml 1909-2241ml (1ml/kcal) Nutritional Problem No current Nutrition Prob Problem N/A Intervention/Recommendation Comments 1. Continue with low sodium CAMRON, mech soft finely chopped diet as ordered. 2. Monitor PO intake, wt, labs and skin integrity 3. F/U as low risk in 7 days Expected Outcomes/Goals Expected Outcomes/Goals 1. PO intake to meet at least 75% of nutritional needs. 2. Wt stability, skin to remain intact, labs to approach WNL.
--- NOTE | 2018-08-05 21:21 | Internal Medicine Prog Note ---
Internal Medicine Subjective - Subjective Service Date: 08/05/18 Patient is:: awake, verbal, other (Patient passed swallow evalutaion, currently on diet.) Patient Complaints of:: cough, SOB Per staff patient has:: no adverse event, no episodes of fall, confused Internal Medicine Objective - Results Result Diagrams: 08/05/18 04:45 08/05/18 04:45 Recent Labs: Laboratory Last Values WBC 11.3 Th/cmm (4.8-10.8) H D 08/05/18 04:45 RBC 4.19 Mil/cmm (3.80-5.80) 08/05/18 04:45 Hgb 11.9 gm/dL (12-16) L 08/05/18 04:45 Hct 35.3 % (41.0-60) L 08/05/18 04:45 MCV 84.2 fl (80-99) 08/05/18 04:45 MCH 28.4 pg (27.0-31.0) 08/05/18 04:45 MCHC Differential 33.8 pg (28.0-36.0) 08/05/18 04:45 RDW 14.9 % (11.5-20.0) 08/05/18 04:45 Plt Count 271 Th/cmm (150-400) 08/05/18 04:45 MPV 6.1 fl 08/05/18 04:45 Add Manual Diff YES 08/03/18 08:30 Neutrophils % 68.3 % (40.0-80.0) 08/05/18 04:45 Band Neutrophils % 1 % (0-10) 08/03/18 08:30 Lymphocytes % 15.4 % (20.0-50.0) L 08/05/18 04:45 Monocytes % 9.3 % (2.0-10.0) 08/05/18 04:45 Eosinophils % 3.8 % (0.0-5.0) 08/05/18 04:45 Basophils % 3.2 % (0.0-2.0) H 08/05/18 04:45 Neutrophils (Manual) 88 % (40-80) H 08/03/18 08:30 Lymphocytes 8 % (20-50) L 08/03/18 08:30 Monocytes 2 % (2-10) 08/03/18 08:30 Eosinophils 1 % (0-5) 08/03/18 08:30 Basophils 0 % (0-3) 08/03/18 08:30 Platelet Estimate ADEQUATE (NORMAL) 07/31/18 05:04 Sodium 138 mEq/L (136-145) 08/05/18 04:45 Potassium 3.1 mEq/L (3.5-5.1) L 08/05/18 04:45 Chloride 105 mEq/L (98-107) 08/05/18 04:45 Carbon Dioxide 26.5 mEq/L (21.0-31.0) 08/05/18 04:45 Anion Gap 9.6 (7.0-16.0) 08/05/18 04:45 BUN 18 mg/dL (7-25) 08/05/18 04:45 Creatinine 1.1 mg/dL (0.7-1.3) 08/05/18 04:45 Est GFR ( Amer) TNP 08/05/18 04:45 Est GFR (Non-Af Amer) TNP 08/05/18 04:45 BUN/Creatinine Ratio 16.4 08/05/18 04:45 Glucose 111 mg/dL (70-105) H 08/05/18 04:45 Whole Bld Lactic Acid 1.95 mmol/L (0.60-1.99) 08/01/18 14:30 Calcium 7.5 mg/dL (8.6-10.3) L 08/05/18 04:45 Total Bilirubin 0.3 mg/dL (0.3-1.0) 08/05/18 04:45 AST 13 U/L (13-39) 08/05/18 04:45 ALT 14 U/L (7-52) 08/05/18 04:45 Alkaline Phosphatase 110 U/L (34-104) H 08/05/18 04:45 Creatine Kinase 246 U/L (30-223) H 07/29/18 04:15 CK-MB (CK-2) 11.1 ng/mL (0.6-6.3) H 07/29/18 04:15 Troponin I 0.02 ng/mL (0.01-0.05) 07/29/18 04:15 B-Natriuretic Peptide 138.0 pg/mL (5.0-100.0) H 08/05/18 04:45 Total Protein 4.6 gm/dL (6.0-8.3) L 08/05/18 04:45 Albumin 1.8 gm/dL (4.2-5.5) L 08/05/18 04:45 Globulin 2.8 gm/dL 08/05/18 04:45 Albumin/Globulin Ratio 0.6 (1.0-1.8) L 08/05/18 04:45 Urine Source SIMS PORT 08/01/18 15:20 Urine Color YELLOW 08/01/18 15:20 Urine Clarity TURBID (CLEAR) 08/01/18 15:20 Urine pH 6.0 (4.6 - 8.0) 08/01/18 15:20 Ur Specific [place] 1.020 (1.005-1.030) 08/01/18 15:20 Urine Protein >=300 mg/dL (NEGATIVE) 08/01/18 15:20 Urine Glucose (UA) NEGATIVE mg/dL (NEGATIVE) 08/01/18 15:20 Urine Ketones NEGATIVE mg/dL (NEGATIVE) 08/01/18 15:20 Urine Blood LARGE (NEGATIVE) H 08/01/18 15:20 Urine Nitrate NEGATIVE (NEGATIVE) 08/01/18 15:20 Urine Bilirubin NEGATIVE (NEGATIVE) 08/01/18 15:20 Urine Urobilinogen 0.2 E.U./dL (0.2 - 1.0) 08/01/18 15:20 Ur Leukocyte Esterase NEGATIVE (NEGATIVE) 08/01/18 15:20 Urine RBC 2-5 /hpf (0-5) H 08/01/18 15:20 Urine WBC 10-25 /hpf (0-5) H 08/01/18 15:20 Ur Epithelial Cells NONE SEEN /lpf (FEW) 08/01/18 15:20 Urine Bacteria MANY /hpf (NONE SEEN) H 08/01/18 15:20 Vancomycin Trough 19.1 ug/mL (5-10) H 08/05/18 01:00 - Physical Exam Vitals and I&O: Vital Signs Temp 99.2 F 08/05/18 17:54 Pulse 73 08/05/18 17:54 Resp 20 08/05/18 17:54 BP 147/85 08/05/18 16:04 Pulse Ox 95 08/05/18 17:54 Intake & Output 08/05/18 08/05/18 08/06/18 06:59 18:59 06:59 Intake Total 950 800 Output Total 2100 4500 Balance -1150 -3700 Weight (lbs) 88.224 kg 88.224 kg Intake: Intake, IV Amount 450 Piperacillin Sodium/ 200 Tazobact 4.5 gm In Sodium Chloride 0.9% 100 ml @ 100 mls/hr IV Q8HR [facility] Rx #:[id number] Vancomycin HCl 1 gm In 250 Sodium Chloride 0.9% 250 ml @ 165 mls/hr IV Q12HR@ 0200,1400 [facility] Rx#: [id number] Oral 500 800 Output: Urine 2100 4500 Other: # Bowel Movements 1 1 Stool Characteristics Soft Liquid Black Weight Source Bedscale Bedscale Active Medications: Current Medications Acetaminophen (Tylenol) 325 mg PO Q4HR PRN PRN Reason: Pain or Fever >101 Stop: 09/27/18 07:42 Last Admin: 08/01/18 11:15 Dose: 325 mg Albuterol Sulfate (Albuterol 2.5mg/3ml Neb Ud) 2.5 mg HHN Q4H PRN PRN Reason: Congestion Stop: 09/27/18 07:59 Last Admin: 08/01/18 09:50 Dose: 2.5 mg Amlodipine Besylate (Norvasc) 2.5 mg PO DAILY [facility] Stop: 09/27/18 08:59 Last Admin: 08/05/18 08:43 Dose: 2.5 mg Ascorbic Acid (Vitamin C) 250 mg PO QPM [place] Stop: 09/27/18 16:59 Last Admin: 08/05/18 16:03 Dose: 250 mg Aspirin (Ecotrin) 81 mg PO QPM [place] Stop: 09/27/18 16:59 Last Admin: 08/05/18 16:03 Dose: 81 mg Bisacodyl (Dulcolax 10 Mg Supp) 10 mg RC DAILY PRN PRN Reason: Constipation Stop: 09/27/18 07:42 Calcium Carbonate (Tums) 500 mg PO Q4HR PRN PRN Reason: Indigestion Stop: 09/27/18 07:42 Diphenhydramine HCl (Benadryl) 50 mg PO HS PRN PRN Reason: Insomnia Stop: 09/27/18 07:42 Last Admin: 08/01/18 02:23 Dose: 50 mg Donepezil HCl (Aricept) 5 mg PO QPM [place] Stop: 09/27/18 16:59 Last Admin: 08/05/18 16:03 Dose: 5 mg Enoxaparin Sodium (Lovenox) 40 mg SUBQ Q12HR [place] Stop: 09/27/18 20:59 Last Admin: 08/05/18 08:41 Dose: 40 mg Ferrous Sulfate (Iron) 325 mg PO DAILY [place] Stop: 09/27/18 08:59 Last Admin: 08/05/18 08:43 Dose: 325 mg Folic Acid (Folate) 2 mg PO DAILY [place] Stop: 09/27/18 08:59 Last Admin: 08/05/18 08:43 Dose: 2 mg Furosemide (Lasix) 40 mg IVP BID [place] Stop: 10/03/18 08:59 Last Admin: 08/05/18 16:04 Dose: 40 mg Guaifenesin/Dextromethorphan (Robitussin Dm) 10 ml PO Q4H PRN PRN Reason: Cough Stop: 09/27/18 07:44 Last Admin: 08/01/18 09:56 Dose: 10 ml Haloperidol Lactate (Haldol) 0.5 mg PO TID [place] Stop: 09/27/18 08:59 Last Admin: 08/05/18 13:45 Dose: 0.5 mg Piperacillin Sod/Tazobactam (Sod 4.5 gm/ Sodium Chloride) 100 mls @ 100 mls/hr IV Q8HR [place] Stop: 09/30/18 14:59 Last Admin: 08/05/18 12:20 Dose: 100 mls/hr Vancomycin HCl 1 gm/ Sodium (Chloride) 250 mls @ 165 mls/hr IV Q12HR@0200,1400 [place] Stop: 10/02/18 13:59 Last Admin: 08/05/18 13:44 Dose: 165 mls/hr Lactobacillus Rhamnosus (Culturelle 15b) 1 each PO DAILY [facility] Stop: 10/04/18 10:29 Last Admin: 08/05/18 11:18 Dose: 1 each Levothyroxine Sodium (Synthroid) 0.05 mg PO DAILY [place] Stop: 09/27/18 08:59 Last Admin: 08/05/18 08:44 Dose: 0.05 mg Lisinopril (Zestril) 20 mg PO DAILY [place] Stop: 09/27/18 08:59 Last Admin: 08/05/18 08:44 Dose: 20 mg Lorazepam (Ativan) 0.5 mg PO Q6HR PRN; Protocol PRN Reason: Anxiety Stop: 09/28/18 16:40 Last Admin: 08/04/18 16:21 Dose: 0.5 mg Lorazepam (Ativan) 1 mg IVP Q4HR PRN; Protocol PRN Reason: Agitation Stop: 09/30/18 04:30 Last Admin: 08/01/18 05:06 Dose: 1 mg Magnesium Hydroxide (Milk Of Magnesia) 30 ml PO DAILY PRN PRN Reason: Constipation Stop: 09/28/18 16:40 Memantine (Namenda) 5 mg PO DAILY [place] Stop: 09/29/18 08:59 Last Admin: 08/05/18 08:44 Dose: 5 mg Miscellaneous (Probiotic Screen) 1 [facility] PRN PRN PRN Reason: PROTOCOL Stop: 09/30/18 14:08 Miscellaneous (Vancomycin Iv Per Pharmacy) 1 [facility] PRN [place] Stop: 09/30/18 14:44 Thiamine HCl (Vitamin B1) 200 mg PO DAILY [facility] Stop: 09/29/18 08:59 Last Admin: 08/05/18 08:42 Dose: 200 mg Vitamin B Complex/Vit C/Folic Acid (Vitamin B Complex W/Vitamin C) 1 tab PO DAILY [place] Stop: 09/27/18 08:59 Last Admin: 08/05/18 08:42 Dose: 1 tab General: weak, edematous HEENT: NC/AT, PERRLA Neck: Supple, No JVD Lungs: CTAB, ronchi, other (sob) Cardiovascular: Normal S1 Abdomen: soft Extremities: edema, other (Generalized edema) Internal Medicine Assmt/Plan - Assessment Assessment: Respiratory failure Pneumonia Sepsis Chronic Copd Leukocytosis Hypertension Mild CHF Dementia Anemia Severe Protein Calorie Malnutrition Schizophrenia PVD Dermatitis Past Alcohol Dependence Acute Diastolic dysfunction - Plan Plan: Continue to monitor closely Monitor labs, Chest x-ray Continue present antibiotics and meds as directed Monitor Intake/Output daily Monitor Os Supplemental Oxygen Supportive care Nebulizer treatments and pulmonary support Followup with Cardio and Dip [place] precaution Monitor Mental health status Continue present care management Nutritional Asmnt/Malnutr-PDOC - Dietary Evaluation Malnutrition Findings (Please click <Entered> for more info): Nutritional Asmnt/Malnutrition Start: 08/01/18 17: 20 Text: Status: Complete Freq: Protocol: Document 08/01/18 17:20 LYNN (Rec: 08/01/18 17:27 [email or web address]) Nutritional Asmnt/Malnutrition Patient General Information Nutritional Screening Moderate Risk Diagnosis anasarca Pertinent Medical Hx/Surgical Hx CHF, HTN, dementia, anemia Subjective Information Pt seen sitting up in bed having lunch, able to eat by himself. Per EMR, PO intake 90 -100%. Current Diet Order/ Nutrition Support low sodium, CAMRON, mech soft chinely chopped Pertinent Medications vit C, iron, folate, lasix, synthroid, vancomycin, piperacillin, vit B1, vit B complex with vit C and folic acid Pertinent Labs 08/01 Na 134, BUN 32, Glucose 149, Ca 8.5, Alb 2.1 Nutritional Hx/Data Height 1.8 m Height (Calculated Centimeters) 180.3 Current Weight (lbs) 99.337 kg Weight (Calculated Kilograms) 99.3 Weight (Calculated Grams) 53061.7 [place] Body Weight 172 Body Mass Index (BMI) 30.5 Weight Status Obese GI Symptoms GI Symptoms None Last BM 07/31 Difficult in: None Skin Integrity/Comment: intact, dryness Current %PO Good (75-100%) Estimated Nutritional Goals BEE in Kcals: Adj wt of IBW Calories/Kcals/Kg 23-27 Kcals Calculated 4742-6379 Protein: Adj wt of IBW Protein g/k.8-1 Protein Calculated 66-83 Fluid: ml 1909-2241ml (1ml/kcal) Nutritional Problem No current Nutrition Prob Problem N/A Intervention/Recommendation Comments 1. Continue with low sodium CAMRON, mech soft finely chopped diet as ordered. 2. Monitor PO intake, wt, labs and skin integrity 3. F/U as low risk in 7 days Expected Outcomes/Goals Expected Outcomes/Goals 1. PO intake to meet at least 75% of nutritional needs. 2. Wt stability, skin to remain intact, labs to approach WNL.
--- NOTE | 2018-08-05 21:57 | Progress Notes ---
DATE: 08/05/2018 PULMONARY PROGRESS NOTE SUBJECTIVE: The patient appears to be doing okay, comfortable, no acute distress. OBJECTIVE: VITAL SIGNS: Temperature 99.2, pulse 76, respirations 20, blood pressure 147/85, saturation 95%. CHEST: Good breath sounds, decreased rhonchi. HEART: Regular rate and rhythm. ABDOMEN: Soft. EXTREMITIES: No edema. LABORATORY DATA: WBC 11.3 down from 18.8, hemoglobin 9.9, platelets 271. Sodium 130, potassium 3.1, BUN is 18, creatinine 1.1. BNP is 138. IMPRESSION: 1. Respiratory failure. 2. Pneumonia. 3. Weakness. 4. Chronic obstructive pulmonary disease. PLAN: 1. IV antibiotics. 2. Nebulizer. 3. Supportive care. The patient is going to be discharged to long-term acute care today. Chest x-ray reports decrease in bilateral infiltrates and congestion. JOB# [id number]
== END 2018-08-05 21:20 | DRG 871 ==
LOC: ER 18:50 → TELE 20:35 → MSI 08-02 08:37
PROVIDERS: ADMIT Internal Medicine; ATTEND Internal Medicine
DX: A41.01 Sepsis due to Methicillin susceptible Staphylococcus aureus (principal); I50.31 Acute diastolic (congestive) heart failure; E43 Unspecified severe protein-calorie malnutrition; J18.9 Pneumonia, unspecified organism; J96.90 Respiratory failure, unspecified, unspecified whether with hypoxia or hypercapnia; J44.1 Chronic obstructive pulmonary disease with (acute) exacerbation; J44.0 Chronic obstructive pulmonary disease with (acute) lower respiratory infection; R60.1 Generalized edema; F03.90 Unspecified dementia, unspecified severity, without behavioral disturbance, psychotic disturbance, mood disturbance, and anxiety; E83.51 Hypocalcemia; F10.20 Alcohol dependence, uncomplicated; I11.0 Hypertensive heart disease with heart failure; F20.9 Schizophrenia, unspecified; I73.9 Peripheral vascular disease, unspecified; L30.9 Dermatitis, unspecified; Y90.9 Presence of alcohol in blood, level not specified; D63.8 Anemia in other chronic diseases classified elsewhere; Z68.27 Body mass index [BMI] 27.0-27.9, adult; Z79.899 Other long term (current) drug therapy
CPT/HCPCS: 36415-UA; 71045-TC; 80048-TC; 80053-TC; 80202-TC; 81001-TC; 82040-TC; 82550-TC; 82553; 83605; 83880-TC; 84484-TC; 85007-TC; 85025-TC; 87086-90; 93005; 93971-TC-LT; 94640; 94760; J1650; J1940; J1956; J2060; J2543; J2920; J3370; J7040; J7613; Z7610